=== PATIENT | male | born 1960 | race Caucasian/White ===

== ENCOUNTER → 2018-03-19 08:14 | Outpatient (CLI) | payer BC, SELFPAY ==
[2018-03-19 10:51] LABS: Hemoglobin A1c 5.9 % (4.2-6.3)
[2018-03-19 10:59] LABS: Anion Gap 9 (5-15); BUN 16 mg/dL (7-18); BUN/Creat Ratio 16.9 RATIO (10-20); Calcium,Total 8.4 mg/dL (8.5-10.1); Chloride 106 mmol/L (98-107); Cholesterol 141 mg/dL (200); Creatinine, Serum 0.95 mg/dL (0.70-1.30); EST Glomerular Filtration Rate 88 mL/min (>60); Est Glom Filt Rate - Afr Amer 106 mL/min (>60); Glucose 112 mg/dL (74-106); High Density Lipoprotein 23 mg/dL; PSA,Total - Annual Screen 0.69 ng/mL (0.00-4.00); Potassium 4.3 mmol/L (3.5-5.1); Sodium Level 141 mmol/L (136-145); Triglycerides 227 mg/dL; Very Low Density Lipoprotein 45 mg/dL (5-40)
== END ==
PROVIDERS: Family Provider Family Medicine; PCP Family Medicine; Visit Provider Family Medicine
DX: I10 Essential (primary) hypertension (principal); Z12.5 Encounter for screening for malignant neoplasm of prostate; E78.5 Hyperlipidemia, unspecified; R73.09 Other abnormal glucose
CPT/HCPCS: 36415; 80048; 80061; 83036; 84153; G0103

== ENCOUNTER 2018-07-12 09:30 | Outpatient (RCR) | payer BC, SELFPAY ==
--- NOTE | 2018-06-20 12:51 | HP.PTEVAL_ITS ---
Patient's Visit Information LINDA FREIRE is a 57 year old M referred to Physical Therapy by DEONDRE TRIPP with a diagnosis of LB strain. Date of Evaluation: 06/20/18 Physical Therapist: Lincoln Gil DPT, OC - Visit Plan Frequency: 2x /Week Duration: 4-6 Weeks Plan: 2x/week for 3-6 weeks. 1. Gradual progression of ROM and core NS strength. 2. As improved work to [place] lifting and carrying working on body mechanics. 3. May use ES ice if pain returns. - Subjective Subjective: Back hurts. Lifted something overhead and felt rip in back. That was 6 weeks ago. Lifted some bricks last weekend and was worse after completed. Had some pain prior to all this intermittently. Has H/o HNP L5. Last couple days has had very little pain b/c hasn't done anything. Avoided lifting, grass seeding yard, taking care of 6 acres. Has not lifted or carried in last couple weeks. Feels great if avoids those things...walking and standing makes him worse. Sitting is OK. Sleeping is good. No pain with cough or sneeze. Went to doctor Sunday and [facility]. Gave him steroids step down and is still on them. Basic ADLs are all OK. 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 - Pain R LBP Pain Intensity (Out of 10): 0 Pain Intensity Range: 0, 7 Comment: standing too long. - Objective I normal gait and trasnfers. reflexes aptella and achilles 3/3. Sensation WNL LE to gross light touch]Strength LE 5/5. LB AROM ext painful central and mod limited. R SB + and limited, L SB full. Flexion is OK. repeated ext produces central LBP. W R SB ROM. Repeated PPU: B adn increased ROM. repeated flex in standing: better. - L/S compression test - Goals Goal 1:: Sleep without waking due to pain. Goal Time Frame: 4-6 Weeks Goal 2:: Back to lifting [place] without hesitation or pain. Goal Time Frame: 4-6 Weeks Goal 3:: Pt feel 100% back to normal and no pain Goal Time Frame: 4-6 Weeks - Rehabilitation Potential Physical Therapy Diagnosis: LB strain. Rehabilitation Potential: Fair - Anticipated Interventions Patient/Client Instruction: Educate patient on: Condition, Plan of Care For the Purpose of:: To decrease pain, To improve ability of physical actions for home/community/work/leisure Therapeutic Exercise to Include: Strength training, Body mechanics, Dynamic Lumbar Stabilization For the Purpose of:: To decrease pain, To improve nutrient delivery to tissue, To improve ability of physical actions for home/community/work/leisure, To improve gait and locomotor functions TENS: Yes Cryotherapy (ice pack, ice massage): Yes For the Purpose of:: To decrease pain Thank you for the opportunity to evaluate your patient. For Medicare and Medicare HMO plans, please review the plan of care and approve it. It will need to be FAXED BACK to us at [phone] for Medicare purposes. Please let me know if there are questions or concerns regarding this plan of care. Physician Signature: Date:
--- NOTE | 2018-09-26 09:53 | HP.PT.NRP ---
HP - Discharge Summary (1) - Patient Information LINDA FREIRE was seen in my office for initial evaluation on 06/20/18. The following Plan of Care was established for this patient: Initial Frequency: 2x /Week Initial Duration: 4-6 Weeks - Anticipated Interventions Patient/Client Instruction: Educate patient on: Condition, Plan of Care For the Purpose of:: To decrease pain, To improve ability of physical actions for home/community/work/leisure Therapeutic Exercise to Include: Strength training, Body mechanics, Dynamic Lumbar Stabilization For the Purpose of:: To decrease pain, To improve nutrient delivery to tissue, To improve ability of physical actions for home/community/work/leisure, To improve gait and locomotor functions TENS: Yes Cryotherapy (ice pack, ice massage): Yes For the Purpose of:: To decrease pain This patient was last seen in our office 07/12/18. Pertinent comments regarding their Physical therapy will appear below: Pt seen 7 visits of plan of care adn was doing well according to notes but neglected to continue with plan or reevaluation. at this point, it has been over two months and I will discontinue due to nonattendance. At this point I will be discontinuing this patient from physical therapy. I would be happy to see this patient again in the future if found appropriate by the physician. Thank you! Lincoln Gil, DPT, OCS, CSCS
== END 2018-07-12 19:00 | disposition home or self-care (01) ==
LOC: PT 09:30
PROVIDERS: Family Provider Family Medicine; PCP Family Medicine
DX: S39.012D Strain of muscle, fascia and tendon of lower back, subsequent encounter (principal)
CPT/HCPCS: 97110; 97162; 97530

== ENCOUNTER → 2018-11-11 10:47 | Outpatient (CLI) | payer BC, SELFPAY ==
--- NOTE | 2018-11-11 10:54 | RAD_ITS ---
STUDY: X-RAY - LEFT SHOULDER REASON FOR EXAM: Male, 58 years old. Pain. TECHNIQUE: 2 view(s) of the shoulder. COMPARISON: None. FINDINGS: There is severe degenerative arthrosis of the glenohumeral articulation. There are degenerative changes of the acromioclavicular joint. Normal acromion. Normal humeral head and visualized proximal humerus. The soft tissue structures are unremarkable. Normal visualized pulmonary apex. RAD/Shoulder min 2 Views IMPRESSION: Degenerative changes. Electronically Signed: Yarelis Crow MD at 17:37 EST Tel , Service support ,
--- NOTE | 2018-11-11 10:54 | RAD_ITS ---
STUDY: X-RAY - RIGHT SHOULDER REASON FOR EXAM: Male, 58 years old. Pain. TECHNIQUE: 2 view(s) of the shoulder. COMPARISON: 11/11/2018 left shoulder. FINDINGS: Moderate chronic AC joint arthrosis. There are no significant degenerative features of the glenohumeral articulation. Osseous structures about the shoulder are intact with normal periarticular soft tissues are normal right hemithoracic structures. RAD/Shoulder min 2 Views IMPRESSION: Moderate chronic acromioclavicular joint arthrosis with no significant degenerative features of the glenohumeral articulation. Electronically Signed: Dominguez Gupta MD at 17:31 EST Tel , Service support ,
== END ==
PROVIDERS: Family Provider Family Medicine; PCP Family Medicine; Referring Provider Psychiatry & Neurology Pain Medicine; Visit Provider Psychiatry & Neurology Pain Medicine
DX: M19.011 Primary osteoarthritis, right shoulder (principal); M19.012 Primary osteoarthritis, left shoulder
CPT/HCPCS: 73030

== ENCOUNTER → 2019-10-13 08:55 | Outpatient (CLI) | payer BC, SELFPAY ==
[2019-10-13 10:32] LABS: Hemoglobin A1c 6.1 % (4.2-6.3)
[2019-10-13 10:41] LABS: Anion Gap 3 (5-15); BUN 13 mg/dL (7-18); BUN/Creat Ratio 13.5 RATIO (10-20); Calcium,Total 8.4 mg/dL (8.5-10.1); Chloride 109 mmol/L (98-107); Cholesterol 163 mg/dL (200); Creatinine, Serum 0.96 mg/dL (0.70-1.30); EST Glomerular Filtration Rate 85 mL/min (>60); Est Glom Filt Rate - Afr Amer 103 mL/min (>60); Glucose 124 mg/dL (74-106); High Density Lipoprotein 25 mg/dL; PSA,Total - Annual Screen 0.98 ng/mL (0.00-4.00); Potassium 4.2 mmol/L (3.5-5.1); Sodium Level 139 mmol/L (136-145); Triglycerides 188 mg/dL; Very Low Density Lipoprotein 38 mg/dL (5-40)
== END ==
PROVIDERS: Family Provider Family Medicine; PCP Family Medicine; Referring Provider Family Medicine; Visit Provider Family Medicine
DX: R73.09 Other abnormal glucose (principal); E78.5 Hyperlipidemia, unspecified; Z12.5 Encounter for screening for malignant neoplasm of prostate; I10 Essential (primary) hypertension
CPT/HCPCS: 36415; 80048; 80061; 83036; 84153; G0103

== ENCOUNTER → 2019-10-17 11:48 | Outpatient (CLI) | payer BC, SELFPAY ==
[2019-10-17 11:50] LABS: Bacteria 0 SEEN /hpf (None Seen); Mucous, Urine 0 SEEN /hpf (<or=2+); Squamous Epithelial Cells - UA 0 SEEN /hpf (0-5); White Blood Cells 0 SEEN /hpf (0-5)
[2019-10-17 14:16] LABS: Absolute Lymphocyte Count 3.31 X10^3/uL (0.83-4.51); Absolute Neutrophil Count 5.5 X10^3/uL (2.0-7.7); Basophil# 0.08 X10^3/uL; Basophil% 0.8 % (0-1); Color, Urine Yellow (Yellow); Eosinophil# 0.17 X10^3/uL; Eosinophils% 1.7 % (0-5); Glucose, Dipstick Normal (Normal); Hematocrit 45.4 % (40-54); Hemoglobin 14.1 g/dL (13.0-16.5); Ketone-Dipstick 5 mg/dl (Negative); Leukocyte Esterase-Dipstick Negative /ul (Negative); Lymphocyte # 3.31 X10^3/ul (4.0); Lymphocyte % 33.2 % (19-41); Mean Corp Hgb Conc 31.1 g/dL (32-36); Mean Corpuscular Hgb 27.5 pg (27.0-32.0); Mean Corpuscular Volume 88.5 fL (80-94); Mean Platelet Vol. 9.8 fl (6.2-12.0); Monocyte# 0.81 X10^3/uL; Monocyte% 8.1 % (0-10); NRBC Flagged by Analyzer 0 % (0-5); Neutrophil # 5.51 X10^3/uL (2.7-7.7); Neutrophil % 55.3 % (47-70); Nitrite-Dipstick Negative (Negative); Occult Blood-Urine 25 /ul (Negative); Platelet Count 288 K/mm3 (150-450); Protein-Dipstick Negative (Negative); RBC Distribution Width CV 13.9 % (11.6-14.6); Red Blood Count 5.13 M/mm3 (4.6-6.2); Urine Bilirubin Dipstick Negative (Negative); Urine Clarity Clear (Clear); Urine Urobilinogen Normal (Normal)
[2019-10-17 14:25] LABS: Red Blood Cells-Urine 0-5 SEEN /hpf (0-5)
[2019-10-17 14:40] LABS: AST(SGOT) 21 U/L (15-37); Alanine Aminotransfer ALT/SGPT 37 U/L (16-61); Albumin, Serum 3.8 g/dL (3.2-5.0); Alkaline Phosphatase 76 U/L (45-117); Bilirubin, Direct 0.11 mg/dL (0.00-0.30); Globulin 3.6 g/dL (2.2-4.2); Protein, Total 7.4 g/dL (6.4-8.2); T4 Free Direct 0.89 ng/dL (0.76-1.46); Thyroid Stim Hormone (TSH) 1.68 uIU/mL (0.358-3.74)
== END ==
PROVIDERS: Family Provider Family Medicine; PCP Family Medicine; Referring Provider Family Medicine; Visit Provider Family Medicine
DX: I10 Essential (primary) hypertension (principal); F17.200 Nicotine dependence, unspecified, uncomplicated; E04.1 Nontoxic single thyroid nodule
CPT/HCPCS: 36415; 80076; 81001; 84439; 84443; 85025

== ENCOUNTER → 2019-10-27 09:21 | Outpatient (CLI) | payer BC, SELFPAY ==
--- NOTE | 2019-10-27 09:27 | US_ITS ---
STUDY: THYROID ULTRASOUND REASON FOR EXAM: Male, 59 years old. NODULE FELT BY DOCTOR TECHNIQUE: Ultrasound evaluation of the thyroid was performed with real-time and static woodson-scale imaging. COMPARISON: None. FINDINGS: RIGHT LOBE: The right lobe of the thyroid gland measures 4.5 cm x 2.1 cm x 2.1 cm. There is a homogeneous echotexture. There are no demonstrated solid, cystic or complex lesions. LEFT LOBE: The left lobe of the thyroid gland measures 4.2 cm x 1.8 cm x 1.5 cm. There is a homogeneous echotexture. There are no demonstrated solid, cystic or complex lesions. ISTHMUS: The isthmus measures 5.0 mm. The regional lymph nodes are normal. US/Thyroid IMPRESSION: Normal ultrasound examination of the thyroid. Electronically Signed: Ernesto Arita, at 8:46 EST , Service support ,
== END ==
PROVIDERS: Family Provider Family Medicine; PCP Family Medicine; Referring Provider Family Medicine; Visit Provider Family Medicine
DX: E04.1 Nontoxic single thyroid nodule (principal)
CPT/HCPCS: 76536

== ENCOUNTER → 2020-02-13 08:22 | Outpatient (CLI) | payer BC, SELFPAY ==
[2020-02-13 08:42] LABS: Bacteria 0 SEEN /hpf (None Seen); Mucous, Urine 0 SEEN /hpf (<or=2+); Red Blood Cells-Urine 0 SEEN /hpf (0-5); Squamous Epithelial Cells - UA 0 SEEN /hpf (0-5); White Blood Cells 0 SEEN /hpf (0-5)
[2020-02-13 09:54] LABS: Absolute Lymphocyte Count 2.45 X10^3/uL (0.83-4.51); Absolute Neutrophil Count 5.1 X10^3/uL (2.0-7.7); Basophil# 0.09 X10^3/uL; Color, Urine Yellow (Yellow); Eosinophil# 0.21 X10^3/uL; Eosinophils% 2.4 % (0-5); Glucose, Dipstick Normal (Normal); Hematocrit 46.4 % (40-54); Hemoglobin 14.9 g/dL (13.0-16.5); Ketone-Dipstick Negative (Negative); Leukocyte Esterase-Dipstick Negative /ul (Negative); Lymphocyte # 2.45 X10^3/ul (4.0); Lymphocyte % 28.4 % (19-41); Mean Corp Hgb Conc 32.1 g/dL (32-36); Mean Corpuscular Hgb 28.5 pg (27.0-32.0); Mean Corpuscular Volume 88.7 fL (80-94); Mean Platelet Vol. 10.4 fl (6.2-12.0); Monocyte# 0.77 X10^3/uL; Monocyte% 8.9 % (0-10); NRBC Flagged by Analyzer 0 % (0-5); Neutrophil # 5.07 X10^3/uL (2.7-7.7); Neutrophil % 58.8 % (47-70); Nitrite-Dipstick Negative (Negative); Occult Blood-Urine 25 /ul (Negative); Platelet Count 257 K/mm3 (150-450); Protein-Dipstick Negative (Negative); RBC Distribution Width CV 13.6 % (11.6-14.6); RBC Distribution Width SD 43.8 fl (35.1-43.9); Red Blood Count 5.23 M/mm3 (4.6-6.2); Specific Gravity, Urine 1.015 (1.002-1.030); Urine Bilirubin Dipstick Negative (Negative); Urine Clarity Clear (Clear); Urine Urobilinogen Normal (Normal); White Blood Count 8.6 K/mm3 (4.4-11.0)
[2020-02-13 10:09] LABS: ALB/GLOB Ratio 1.1 RATIO (0.9-2.4); AST(SGOT) 21 U/L (15-37); Alanine Aminotransfer ALT/SGPT 31 U/L (16-61); Albumin, Serum 3.7 g/dL (3.2-5.0); Alkaline Phosphatase 66 U/L (45-117); Anion Gap 6 (5-15); BUN 15 mg/dL (7-18); BUN/Creat Ratio 15.8 RATIO (10-20); Calcium,Total 8.8 mg/dL (8.5-10.1); Chloride 108 mmol/L (98-107); Creatinine, Serum 0.95 mg/dL (0.70-1.30); EST Glomerular Filtration Rate 86 mL/min (>60); Est Glom Filt Rate - Afr Amer 104 mL/min (>60); Globulin 3.5 g/dL (2.2-4.2); Glucose 122 mg/dL (74-106); Potassium 4.6 mmol/L (3.5-5.1); Protein, Total 7.2 g/dL (6.4-8.2); Sodium Level 140 mmol/L (136-145)
[2020-02-13 10:29] LABS: Hemoglobin A1c 6.3 % (4.2-6.3)
== END ==
PROVIDERS: PCP Family Medicine; Referring Provider Family Medicine; Visit Provider Family Medicine
DX: I10 Essential (primary) hypertension (principal); R73.02 Impaired glucose tolerance (oral); F17.200 Nicotine dependence, unspecified, uncomplicated
CPT/HCPCS: 36415; 80053; 81001; 83036; 85025

== ENCOUNTER 2020-04-16 05:34 | Day surgery (SDC) | payer BC, SELFPAY ==
[2020-03-26 09:24] VITALS: BMI 25.8
[2020-04-16] VITALS (8 sets, daily range): BP systolic 118–156; BP diastolic 75–92; PULSE 48–55; RESP 16; TEMP 36.1–36.6; O2SAT 95–100; BMI 28.0
--- NOTE | 2020-04-16 | EGD_PTH ---
PATIENT: LIDNA FREIRE LOC: EN U#:[id number] AGE/SX: 59/M ROOM: RE04/16/[address]: Dr. Carlitos Dos Santos MD : 1960 BED: DIS: 04/16/2020 SPEC #: [id number] RECD: 04/16/20 13:10 STATUS: ENRIQUE MADDEN #: [id number] ED: 04/16/20 00:[address]: Carlitos Dos Santos DEPT: SURGICAL PATHOLOGY RECD BY: Dennys Tavera ENTERED: 04/16/20 13:11 SP TYPE: EGD BIOPSY OT DR: Dr. Brock Dove MD Tissues: A - Duodenum, NOS B - Gastric mucous membrane Esophagus, NOS Procedures: Surgery Specimen Level IV HEADER OPERATION: EGD (MOD) PRE-OP DIAGNOSIS: GERD TISSUE SUBMITTED: A - Duodenum biopsy, B - Antrum biopsy, C - Distal esophagus biopsy MICROSCOPIC DIAGNOSIS A. Duodenum, biopsy: Minimal nonspecific chronic inflammation. B. Gastric antrum, biopsy: Mild chronic gastritis. C. Distal esophagus, biopsy: Strips of benign superficial squamous mucosa with no evidence of inflammation. AM:[place] 04/19/20 MICROSCOPIC DESCRIPTION Slides are reviewed. GROSS DESCRIPTION A - Received in fixative is one container labeled with the patient's name and designated duodenum biopsy. The specimen consists of one irregular fragment of light king soft tissue that measures 0.4 x 0.3 x 0.1 cm. The specimen is totally submitted in one cassette. B - Received in fixative is one container labeled with the patient's name and designated antrum biopsy. The specimen consists of one irregular fragment of light king soft tissue that measures 0.7 x 0.2 x 0.1 cm. The specimen is totally submitted in one cassette. C - Received in fixative is one container labeled with the patient's name and designated distal esophagus biopsy. The specimen consists of multiple irregular fragments of light king soft tissue that in aggregate measure 1 x 0.3 x 0.1 cm. The specimen is totally submitted in one cassette. / SJ:[place] 04/16/20 TC:3 CPT: 14924 x3
--- NOTE | 2020-04-16 05:58 | PCM.HP.BLA ---
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 Required: No Is patient in pain?: No Allergies No Known Allergies Allergy (Unverified 03/26/20 09:24) Medications metformin 500 mg tablet 500 mg PO BID 03/26/20 [History Confirmed 03/26/20] metoprolol tartrate 50 mg tablet 50 mg PO BID 03/26/20 [History Confirmed 03/26/20] omeprazole 20 mg tablet,delayed release 20 mg PO DAILY 03/26/20 [History Confirmed 03/26/20] [facility] Medical History Diabetes (Acute) GERD (gastroesophageal reflux disease) (Acute) HTN (hypertension) (Chronic) Surgical History S/P correction of deviated nasal septum (Acute) S/P left knee arthroscopy (Acute) S/P left knee surgery (Acute) S/p tibial fracture (Acute) Family History Brother Cancer sinus surgery Father Heart disease Social History (Updated 03/26/20 @ 09:[address] Carlitos Dos Santos MD) Smoking Status: Current every day smoker alcohol intake: never HPI HPI HPI: LINDA FREIRE, is a 59 M who presents to the office today for surgical consultation regarding a 10-year history of proton pump inhibitor dependent sour stomach reflux symptoms. The patient is referred by his primary care physician Dr Brock Dove and a written copy of my surgical consult and recommendations will be returned to him. At least for 10 years he has been on omeprazole therapy. 20 mg tablet every other day. If he goes longer than he has severe dyspepsia. He has been a long-term tobacco smoker.. He occasionally will have a sour taste in his throat. He has never had an upper endoscopy. He has had a colonoscopy performed by Dr. Ruiz Gomez on September 17, 2017. A a sending colon polyp and a descending colon polyp was removed. The ascending polyp was a tubular adenoma in the descending polyp was actually just colonic mucosa. It was recommended to him that he have a follow-up colonoscopy 5 years from that date. He denies bright red blood per rectum or melena. No current abdominal pain. HPI HPI HPI: LINDA FREIRE, is a 59 M who presents to the office today for ROS General General: No weight change, appetite, fatigue, colon cancer, breast cancer or weakness HEENT HEENT: No difficulty swallowing, eye injury, eye surgery, swollen glands or hoarseness Endo Endocrine: No thyroid disease, diabetes mellitus, thyroid cancer, Hair loss, heat intolerance or cold intolerance Skin Skin: No rash or changing moles Breast Breast: No left breast lump, right breast lump, nipple discharge, breast pain, abnormal mammogram, abnormal US or breast enlargement Musc Musculoskeletal: Yes arthritis; no back problems, rheumatoid arthritis, gout or joint pain Cardio Cardiovascular: Yes high blood pressure; no murmur, pacemaker, heart disease, atrial fibrillation, heart attack, heart stent, palpitations, shortness of breat with exertion or chest pain Psych Psychiatric: No depression, anxiety or hearing voices Resp Respiratory: No shortness of breath, No sleep apnea, No cough, No COPD, No asthma, No emphysema, No wheezing Gastro Gastrointestinal: No abdominal pain, No nausea or vomiting, No diarrhea, No constipation, No blood in stool, No acid reflux, No hemorrhoids, No ulcers, No gallbladder problem, No black,tarry stools Alexander Hematologic: No blood thinners, No blood disorders, No bleeding, No anemia, No blood clots Neuro Neurologic: No system reviewed and no additional complaints, except as docu, No as per HPI, No abnormal walking, No abnormal hearing, No abnormal movements, No abnormal speech, No behavioral changes, No burning sensations, No confusion, No seizure-like activity, No unsteadiness, No dizziness, No localized weakness, No frequent falls, No headache(s), No lack of coordination, No loss of vision, No memory loss, No numbness, No other visual disturbances, No radiating pain, No restless legs, No sensory deficit, No fainting, No tingling, No tremor(s), No weakness, No other Exam Const General: cooperative, comfortable, no acute distress Nutritional Appearance: average body habitus Orientation: alert, awake HENMT Head: normal to inspection Chest Breast Palpation: No nipple discharge Resp Effort & Inspection: normal respiratory effort Auscultation: clear to auscultation bilaterally Cardio Rate: regular rate Rhythm: regular rhythm Heart Sounds: no murmurs GI Palpation: soft, no hepatosplenomegaly Skin General: no rashes or lesions noted Neuro Cognition: normal cognition Extrem General: no calf tenderness Psych Affect: normal affect Assessment & Plan Problems 1. Gastroesophageal reflux disease, esophagitis presence not specified K21.9 Plan Findings would suggest a 10-year history of proton pump inhibitor therapy. He has never had an upper endoscopy. He has reflux symptoms if he temporarily ceases his medication. I concur with Dr Brock Dove that the patient is indicated for a esophagogastroduodenoscopy with very careful inspection for possible biopsy or polypectomy if indicated. I have described the technique, benefit, risk of alternatives to the patient. He has had an opportunity to ask and have questions answered. We will schedule and proceed at his discretion. He is aware that he is presenting via the Covid-19 pandemic. He is aware that the [facility] is reporting a low local incidence. I appreciate the opportunity of assisting with his surgical care CC: Dr Brock Dos Santos M.D., F.A.C.S. Coding Level of Care Code 93065 Diagnoses Gastroesophageal reflux disease, esophagitis presence not specified K21.9 ??Esophagitis presence: esophagitis presence not specified I have re-examined the patient. There are no clinical changes since date of exam. Procedure Criteria Procedure Type: Elective COVID Risk Discussion: The surgeon/proceduralist and patient have discussed in detail the risk of exposure to and/or potential harm posed by the COVID-19 virus with having a surgery/procedure at this time versus the risk of delaying the surgery/procedure. It is not possible to know either the risk of delaying the surgery or procedure or chance of getting an infection with perfect accuracy, but a joint decision was made between the patient and the surgeon/proceduralist to proceed at this time with the scheduled surgery/procedure as indicated on the consent form.
[2020-04-16] MEDS: Lactated Ringers 1,000 ML 100 ML IV (06:06)
--- NOTE | 2020-04-16 06:49 | OP.EGD_ITS ---
Patient Name: Dominik Valentine Procedure Date: 04/16/2020 6:12 AM Date of : 1960 Age: 59 Procedure: Upper GI endoscopy Indications: Suspected esophageal reflux Providers: Carlitos Dos Santos MD Referring MD: Brock Dove Medicines: Midazolam 3.5 mg IV, Meperidine 90 mg IV Complications: No immediate complications. Procedure: Pre-Anesthesia Assessment: - Prior to the procedure, a History and Physical was performed, and patient medications and allergies were reviewed. The patient's tolerance of previous anesthesia was also reviewed. The risks and benefits of the procedure and the sedation options and risks were discussed with the patient. All questions were answered, and informed consent was obtained. Prior Anticoagulants: The patient has taken no previous anticoagulant or antiplatelet agents. ASA Grade Assessment: II - A patient with mild systemic disease. After reviewing the risks and benefits, the patient was deemed in satisfactory condition to undergo the procedure. After obtaining informed consent, the endoscope was passed under direct vision. Throughout the procedure, the patient's blood pressure, pulse, and oxygen saturations were monitored continuously. The Endoscope was introduced through the mouth, and advanced to the second part of duodenum. The upper GI endoscopy was accomplished without difficulty. The patient tolerated the procedure well. Moderate Sedation: Moderate (conscious) sedation was personally administered by the endoscopist. The following parameters were monitored: oxygen saturation, heart rate, blood pressure, and response to care. Total physician intraservice time was 15 minutes. Scope In: 6:36:07 AM Scope Out: 6:41:55 AM Total Procedure Duration Time 0 hours 5 minutes 48 seconds Findings: The Z-line was variable and was found 40 cm from the incisors. The distal esophagus was normal. Biopsies were taken with a cold forceps for histology. A small hiatal hernia was present. Diffuse mild inflammation was found in the gastric antrum. Biopsies were taken with a cold forceps for histology. Diffuse mild inflammation characterized by erythema was found in the duodenal bulb. Biopsies were taken with a cold forceps for histology. Impression: - Z-line variable, 40 cm from the incisors. - Normal distal esophagus. Biopsied. - Small hiatal hernia. - Chronic gastritis. Biopsied. - Duodenitis. Biopsied. Recommendation: - Await pathology results. - Discharge patient to home. - Resume previous diet. - Continue present medications. - Telephone my office for pathology results in 1 week. Will consider routine use of a H2 [place] because of gastritis/duodenitis - Use Pepcid (famotidine) 20 mg PO BID. Procedure Code(s): --- Professional --- 58566, Esophagogastroduodenoscopy, flexible, transoral; with biopsy, single or multiple 55151, 59, Moderate sedation services provided by the same physician or other qualified health home visit field care manager performing the diagnostic or therapeutic service that the sedation supports, requiring the presence of an independent trained observer to assist in the monitoring of the patient's level of consciousness and physiological status; initial 15 minutes of intraservice time, patient age 5 years or older Diagnosis Code(s): --- Professional --- K22.8, Other specified diseases of esophagus K44.9, Diaphragmatic hernia without obstruction or gangrene K29.50, Unspecified chronic gastritis without bleeding K29.80, Duodenitis without bleeding CPT copyright 2017 [employer]. All rights reserved. The codes documented in this report are preliminary and upon manager portable review may be revised to meet current compliance requirements. Carlitos Dos Santos MD 04/16/2020 6:49:14 AM This report has been signed electronically. Number of Addenda: 0 Note Initiated On: 04/16/2020 6:12 AM
--- NOTE | 2020-04-16 06:49 | OP.CCLET_ITS ---
04/16/2020 Brock Dove [address] [place] [address] Re : Upper GI endoscopy procedure for Dominik Valentine Dear Dr. Dove This procedure was performed on Thursday, April 16, 2020. My impressions and recommendations are as follows: Impressions : - Z-line variable, 40 cm from the incisors. - Normal distal esophagus. Biopsied. - Small hiatal hernia. - Chronic gastritis. Biopsied. - Duodenitis. Biopsied. Recommendations : - Await pathology results. - Discharge patient to home. - Resume previous diet. - Continue present medications. - Telephone my office for pathology results in 1 week. Will consider routine use of a H2 [place] because of gastritis/duodenitis - Use Pepcid (famotidine) 20 mg PO BID. My findings are described in the full procedure note, which is enclosed. If I can be of further assistance, please feel free to contact me at Doctor phone number(s): Work: . Sincerely, Carlitos Dos Santos MD 04/16/2020 6:49:14 AM This report has been signed electronically.
== END 2020-04-16 07:34 | disposition home or self-care (01) ==
LOC: EN 05:35 → AC 05:35
PROVIDERS: PCP Family Medicine; Referring Provider Family Medicine; Visit Provider Surgery
PROC: (CPT 43239; principal; 2020-04-16 06:25)
DX: K29.50 Unspecified chronic gastritis without bleeding (principal); K44.9 Diaphragmatic hernia without obstruction or gangrene; K29.80 Duodenitis without bleeding; K21.9 Gastro-esophageal reflux disease without esophagitis; Z11.59 Encounter for screening for other viral diseases; E11.9 Type 2 diabetes mellitus without complications; I10 Essential (primary) hypertension; Z79.84 Long term (current) use of oral hypoglycemic drugs; Z79.899 Other long term (current) drug therapy; F17.200 Nicotine dependence, unspecified, uncomplicated
CPT/HCPCS: 43239; 87635; 88305; 99152; 99153; G2023; J7120; U0003

== ENCOUNTER → 2021-07-26 09:11 | Outpatient (CLI) | payer BC, SELFPAY ==
[2021-07-26 09:16] LABS: Bacteria 0 SEEN /hpf (None Seen); Mucous, Urine 0 SEEN /hpf (<or=2+); Squamous Epithelial Cells - UA 0 SEEN /hpf (0-5); White Blood Cells 0 SEEN /hpf (0-5)
[2021-07-26 10:00] LABS: Color, Urine Yellow (Yellow); Glucose, Dipstick Normal (Normal); Ketone-Dipstick 5 mg/dl (Negative); Leukocyte Esterase-Dipstick Negative /ul (Negative); Nitrite-Dipstick Negative (Negative); Occult Blood-Urine 10 /ul (Negative); Protein-Dipstick Negative (Negative); Urine Bilirubin Dipstick Negative (Negative); Urine Clarity Clear (Clear); Urine Urobilinogen Normal (Normal)
[2021-07-26 10:02] LABS: Absolute Lymphocyte Count 3.52 X10^3/uL (0.83-4.51); Absolute Neutrophil Count 6.3 X10^3/uL (2.0-7.7); Basophil# 0.11 X10^3/uL; Eosinophil# 0.24 X10^3/uL; Eosinophils% 2.1 % (0-5); Hematocrit 48.8 % (40-54); Hemoglobin 15.9 g/dL (13.0-16.5); Lymphocyte # 3.52 X10^3/ul (0.83-4.51); Lymphocyte % 31.5 % (19-41); Mean Corp Hgb Conc 32.6 g/dL (32-36); Mean Corpuscular Hgb 28.8 pg (27.0-32.0); Mean Corpuscular Volume 88.4 fL (80-94); Mean Platelet Vol. 9.9 fl (6.2-12.0); Monocyte# 0.92 X10^3/uL; Monocyte% 8.2 % (0-10); NRBC Flagged by Analyzer 0 % (0-5); Neutrophil # 6.33 X10^3/uL (2.7-7.7); Neutrophil % 56.6 % (47-70); Platelet Count 276 K/mm3 (150-450); RBC Distribution Width CV 13.7 % (11.6-14.6); RBC Distribution Width SD 44.4 fl (35.1-43.9); Red Blood Count 5.52 M/mm3 (4.6-6.2); White Blood Count 11.2 K/mm3 (4.4-11.0)
[2021-07-26 10:10] LABS: Red Blood Cells-Urine 0-5 SEEN /hpf (0-5)
[2021-07-26 11:05] LABS: AST(SGOT) 28 U/L (15-37); Alanine Aminotransfer ALT/SGPT 49 U/L (16-61); Albumin, Serum 3.9 g/dL (3.2-5.0); Alkaline Phosphatase 78 U/L (45-117); Anion Gap 10 (5-15); BUN 13 mg/dL (7-18); BUN/Creat Ratio 13.1 RATIO (10-20); Chloride 101 mmol/L (98-107); Cholesterol 140 mg/dL (200); Creatinine, Serum 0.99 mg/dL (0.70-1.30); EST Glomerular Filtration Rate 82 mL/min (>60); Est Glom Filt Rate - Afr Amer 99 mL/min (>60); Globulin 3.9 g/dL (2.2-4.2); Glucose 115 mg/dL (74-106); High Density Lipoprotein 31 mg/dL; PSA,Total - Annual Screen 0.91 ng/mL (0.00-4.00); Potassium 4.3 mmol/L (3.5-5.1); Protein, Total 7.8 g/dL (6.4-8.2); Sodium Level 137 mmol/L (136-145); Triglycerides 95 mg/dL; Very Low Density Lipoprotein 19 mg/dL (5-40)
[2021-07-26 13:58] LABS: Hemoglobin A1c 5.6 % (3.8-5.6)
== END ==
PROVIDERS: PCP Family Medicine; Referring Provider Family Medicine; Visit Provider Family Medicine
DX: I10 Essential (primary) hypertension (principal); R73.02 Impaired glucose tolerance (oral); Z12.5 Encounter for screening for malignant neoplasm of prostate
CPT/HCPCS: 36415; 80053; 80061; 81001; 83036; 84153; 85025; G0103

== ENCOUNTER → 2022-02-08 | Outpatient (CLI) | payer BC, SELFPAY | END | disposition home or self-care (01) | LOC: LABSPEC 15:13 | PROVIDERS: PCP Family Medicine; Visit Provider Otolaryngology Otolaryngology/Facial Plastic Surgery | DX: J02.9 Acute pharyngitis, unspecified (principal) | CPT/HCPCS: 87070 ==

== ENCOUNTER → 2022-02-16 | Outpatient (CLI) | payer BC, SELFPAY ==
[2022-02-16 12:02] LABS: Bacteria 0 SEEN /hpf (None Seen); Mucous, Urine 0 SEEN /hpf (<or=2+); Red Blood Cells-Urine 0 SEEN /hpf (0-5); Squamous Epithelial Cells - UA 0 SEEN /hpf (0-5); White Blood Cells 0 SEEN /hpf (0-5)
[2022-02-16 15:17] LABS: Absolute Lymphocyte Count 3.46 X10^3/uL (0.83-4.51); Absolute Neutrophil Count 5.2 X10^3/uL (2.0-7.7); Basophil# 0.06 X10^3/uL; Basophil% 0.6 % (0-1); Eosinophil# 0.18 X10^3/uL; Eosinophils% 1.8 % (0-5); Hematocrit 45.6 % (40-54); Hemoglobin 14.9 g/dL (13.0-16.5); Lymphocyte # 3.46 X10^3/ul (0.83-4.51); Lymphocyte % 35.1 % (19-41); Mean Corp Hgb Conc 32.7 g/dL (32-36); Mean Corpuscular Hgb 28.9 pg (27.0-32.0); Mean Corpuscular Volume 88.4 fL (80-94); Mean Platelet Vol. 10.1 fl (6.2-12.0); Monocyte# 0.91 X10^3/uL; Monocyte% 9.2 % (0-10); NRBC Flagged by Analyzer 0 % (0-5); Neutrophil # 5.17 X10^3/uL (2.7-7.7); Neutrophil % 52.6 % (47-70); Platelet Count 268 K/mm3 (150-450); RBC Distribution Width CV 13.4 % (11.6-14.6); RBC Distribution Width SD 43.6 fl (35.1-43.9); Red Blood Count 5.16 M/mm3 (4.6-6.2); White Blood Count 9.9 K/mm3 (4.4-11.0)
[2022-02-16 15:19] LABS: Color, Urine Yellow (Yellow); Glucose, Dipstick Normal (Normal); Ketone-Dipstick Negative (Negative); Leukocyte Esterase-Dipstick Negative /ul (Negative); Nitrite-Dipstick Negative (Negative); Occult Blood-Urine 25 /ul (Negative); Protein-Dipstick Negative (Negative); Urine Bilirubin Dipstick Negative (Negative); Urine Clarity Clear (Clear); Urine Urobilinogen Normal (Normal)
[2022-02-16 15:46] LABS: ALB/GLOB Ratio 1.1 RATIO (0.9-2.4); AST(SGOT) 27 U/L (15-37); Alanine Aminotransfer ALT/SGPT 49 U/L (16-61); Albumin, Serum 3.9 g/dL (3.2-5.0); Alkaline Phosphatase 69 U/L (45-117); Anion Gap 5 (5-15); BUN 10 mg/dL (7-18); BUN/Creat Ratio 12.3 RATIO (10-20); Calcium,Total 9.2 mg/dL (8.5-10.1); Chloride 105 mmol/L (98-107); Cholesterol 129 mg/dL (200); Creatinine, Serum 0.81 mg/dL (0.70-1.30); EST Glomerular Filtration Rate 103 mL/min (>60); Est Glom Filt Rate - Afr Amer 125 mL/min (>60); Globulin 3.7 g/dL (2.2-4.2); Glucose 100 mg/dL (74-106); Hemoglobin A1c 5.7 % (3.8-5.6); High Density Lipoprotein 26 mg/dL; Potassium 4.6 mmol/L (3.5-5.1); Protein, Total 7.6 g/dL (6.4-8.2); Sodium Level 137 mmol/L (136-145); Triglycerides 133 mg/dL; Very Low Density Lipoprotein 27 mg/dL (5-40)
== END | disposition home or self-care (01) ==
LOC: MFPLAB 11:57
PROVIDERS: PCP Family Medicine; Visit Provider Family Medicine
DX: I10 Essential (primary) hypertension (principal); F17.200 Nicotine dependence, unspecified, uncomplicated; R73.02 Impaired glucose tolerance (oral)
CPT/HCPCS: 80053; 80061; 81001; 83036; 85025

== ENCOUNTER → 2023-02-13 | Outpatient (CLI) | payer BC, SELFPAY ==
[2023-02-13 10:46] LABS: Bacteria 0 SEEN /hpf (None Seen); Mucous, Urine 0 SEEN /hpf (<or=2+); Red Blood Cells-Urine 0 SEEN /hpf (0-5); Squamous Epithelial Cells - UA 0 SEEN /hpf (0-5); White Blood Cells 0 SEEN /hpf (0-5)
[2023-02-13 12:33] LABS: Color, Urine Yellow (Yellow); Glucose, Dipstick Normal (Normal); Ketone-Dipstick Negative (Negative); Leukocyte Esterase-Dipstick Negative /ul (Negative); Nitrite-Dipstick Negative (Negative); Occult Blood-Urine 25 /ul (Negative); Protein-Dipstick Negative (Negative); Specific Gravity, Urine 1.005 (1.002-1.030); Urine Bilirubin Dipstick Negative (Negative); Urine Clarity Clear (Clear); Urine Urobilinogen Normal (Normal)
[2023-02-13 12:36] LABS: Absolute Lymphocyte Count 2.94 X10^3/uL (0.83-4.51); Absolute Neutrophil Count 5.3 X10^3/uL (2.0-7.7); Basophil# 0.11 X10^3/uL; Basophil% 1.2 % (0-1); Eosinophil# 0.19 X10^3/uL; Hematocrit 46.5 % (40-54); Hemoglobin 14.8 g/dL (13.0-16.5); Lymphocyte # 2.94 X10^3/ul (0.83-4.51); Lymphocyte % 31.2 % (19-41); Mean Corp Hgb Conc 31.8 g/dL (32-36); Mean Corpuscular Hgb 28.4 pg (27.0-32.0); Mean Corpuscular Volume 89.1 fL (80-94); Mean Platelet Vol. 9.6 fl (6.2-12.0); Monocyte# 0.86 X10^3/uL; Monocyte% 9.1 % (0-10); NRBC Flagged by Analyzer 0 % (0-5); Neutrophil # 5.28 X10^3/uL (2.7-7.7); Neutrophil % 56.1 % (47-70); Platelet Count 266 K/mm3 (150-450); RBC Distribution Width CV 13.8 % (11.6-14.6); Red Blood Count 5.22 M/mm3 (4.6-6.2); White Blood Count 9.4 K/mm3 (4.4-11.0)
[2023-02-13 13:02] LABS: Hemoglobin A1c 5.5 % (3.8-5.6)
[2023-02-13 13:23] LABS: ALB/GLOB Ratio 1.2 RATIO (0.9-2.4); AST(SGOT) 25 U/L (15-37); Alanine Aminotransfer ALT/SGPT 34 U/L (16-61); Albumin, Serum 3.9 g/dL (3.2-5.0); Alkaline Phosphatase 75 U/L (45-117); Anion Gap 4 (5-15); BUN 10 mg/dL (7-18); BUN/Creat Ratio 11.8 RATIO (10-20); Calcium,Total 9.4 mg/dL (8.5-10.1); Chloride 107 mmol/L (98-107); Cholesterol 138 mg/dL (200); Creatinine, Serum 0.85 mg/dL (0.70-1.30); EST Glomerular Filtration Rate 97 mL/min (>60); Est Glom Filt Rate - Afr Amer 118 mL/min (>60); Globulin 3.3 g/dL (2.2-4.2); Glucose 102 mg/dL (74-106); High Density Lipoprotein 32 mg/dL; Potassium 4.6 mmol/L (3.5-5.1); Protein, Total 7.2 g/dL (6.4-8.2); Sodium Level 139 mmol/L (136-145); Triglycerides 76 mg/dL; Very Low Density Lipoprotein 15 mg/dL (5-40)
== END | disposition home or self-care (01) ==
PROVIDERS: PCP Family Medicine; Referring Provider Family Medicine; Visit Provider Family Medicine
DX: I10 Essential (primary) hypertension (principal); R73.02 Impaired glucose tolerance (oral)
CPT/HCPCS: 36415; 80053; 80061; 81001; 83036; 84443; 85025

== ENCOUNTER → 2023-02-23 | Outpatient (CLI) | payer BC, SELFPAY ==
--- NOTE | 2023-02-23 13:47 | CT_ITS ---
STUDY: LOW DOSE CT LUNG CANCER SCREENING REASON FOR EXAM: Male, 62 years old. tobacco abuse. Patient smokes 10 cigarettes per day for 40 years. RADIATION DOSAGE (If Supplied By Facility): CTDIvol = ( 3.02 ) mGy, DLP = ( 121.92 ) mGycm TECHNIQUE: No contrast was administered. Low dose technique was utilized (average mAS-38 and kVp 120). 1.25 mm axial source images with a slice interval of 1.25-mm were reconstructed in lung windows. 2.5 mm axial source images with a slice interval of 2.5-mm were reconstructed in lung windows. 5.0 mm axial source images with a slice interval of 5.0-mm were reconstructed in soft tissue windows. COMPARISON: None. NODULES: No suspicious nodules are seen. Emphysema: No significant emphysematous changes are present. Endobronchial lesion: Unremarkable Aorta: Atherosclerotic plaque formation of the aortic arch. CORONARY ARTERIES: Coronary artery calcification is seen. Heart: Unremarkable Pulmonary artery: Unremarkable Mediastinal nodes: Small benign-appearing mediastinal lymph nodes. Other chest and abdominal findings: CT/Low Dose CT Lung Screening IMPRESSION: Lung-RADS category 2 - Continue annual screening with LDCT in 12 months. IMPORTANT NOTES FOR USE: ACR Lung-RADS Version 1.1 Assessment Categories Release Date: 2018 Category: Coded 0-4 bases on nodule(s) with highest degree of suspicion. Negative screen is defined as categories 1 and 2; a positive screen is defined as categories 3 and 4. Category 3 and 4A nodules that are unchanged on interval CT should be coded as category 2, and individuals returned to screening in 12 months. Category 4X: Category 3 or 4 nodules with additional imaging findings that increase the suspicion of lung cancer, such as spiculation, GGN that doubles in size in 1 year, enlarged lymph notes, etc. Category Modifiers: S (significant finding unrelated to lung cancer) Electronically Signed: Ernesto Arita MD at 14:46 EDT ,
== END | disposition home or self-care (01) ==
LOC: CT 13:43
PROVIDERS: PCP Family Medicine; Referring Provider Family Medicine; Visit Provider Family Medicine
DX: F17.210 Nicotine dependence, cigarettes, uncomplicated (principal)
CPT/HCPCS: 71271

== ENCOUNTER → 2023-03-20 | Outpatient (CLI) | payer BC, SELFPAY ==
--- NOTE | 2023-03-20 07:50 | CT_ITS ---
STUDY: CT SOFT TISSUE NECK WITH CONTRAST REASON FOR EXAM: Male, 62 years old. TOBACCO USE DISORDER/HOARSE VOICE X 1 YEAR RADIATION DOSAGE (If Supplied By Facility): CTDIvol = ( 18.01 ) mGy, DLP = ( 621.08 ) mGycm TECHNIQUE: The patient was scanned in a multi-detector CT scanner. High resolution transaxial imaging was performed following intravenous administration of IV 75mL Isovue-370. Sagittal and coronal images were reconstructed. Individualized dose optimization techniques were used for this CT. COMPARISON: None. FINDINGS: Atherosclerotic calcification of the aortic arch. Normal bilateral parotid glands. Normal bilateral emerging technologies director spaces. Normal bilateral parapharyngeal spaces. Normal bilateral carotid spaces. Normal bilateral sublingual and submandibular glands and spaces. Normal visualized nasopharynx. Normal retropharyngeal space. Normal perivertebral space. Normal visualized bilateral faucial tonsils. The visualized tongue, tongue base and oropharynx are normal. The visualized cervical lymph nodes (levels I-) are within normal size limits, and maintain normal morphology. There is no demonstrated solid or cystic mass lesion. There is no abnormal contrast enhancement. Normal epiglottis, bilateral vallecula and hypopharynx. The pre-epiglottic and paraglottic adipose spaces are normal. Normal visualized bilateral piriform sinuses, aryepiglottic folds, vocal cords, and arytenoid-cricoid articulations. Normal subglottic trachea. Normal bilateral lobes of the thyroid gland. Normal visualized pulmonary apices. Mucosal thickening along the posterior aspect of the sphenoid sinus. Mucosal thickening at the bases of both maxillary sinuses as well as the ethmoid sinuses. There is multilevel degenerative changes of the cervical spine. CT/Soft Tissue Neck WITH Contrast IMPRESSION: Sinusitis. Electronically Signed: Ernesto Arita MD at 12:40 EDT ,
[2023-03-20 08:19] LABS: CREATININE FINGERSTICK < 0.9 mg/dL (0.70-1.30); EGFR FINGERSTICK > 60.0000 mL/min (>60)
== END | disposition home or self-care (01) ==
LOC: CT 07:45
PROVIDERS: PCP Family Medicine; Referring Provider Family Medicine; Visit Provider Family Medicine
DX: F17.200 Nicotine dependence, unspecified, uncomplicated (principal)
CPT/HCPCS: 70491; Q9967

== ENCOUNTER 2023-04-17 05:44 | Day surgery (SDC) | payer BC, SELFPAY ==
[2023-04-17] VITALS (9 sets, daily range): BP systolic 97–122; BP diastolic 61–81; PULSE 45–50; RESP 16; TEMP 36.1–36.4; O2SAT 97–100; BMI 24.3
--- NOTE | 2023-04-17 06:09 | PCM.HP.STD ---
HPI - General General Date of Admission: 06/22/20 Date of Service: 04/17/23 Chief Complaint: Personal history colon polyps HPI Narrative LINDA FREIRE, is a 62 M who presents via open access today for surveillance colonoscopy. Previous colonoscopy was September [address] Medhat Gomez performed a colonoscopy and removed 2 polyps. No specific complaints today. Otherwise feeling well. No abdominal pain. No bright red blood per rectum or melena. He is not on any anticoagulants [facility] [place] Medical History (Updated 04/17/23 @ 06:[address] Carlitos Dos Santos MD) Arthritis Cough Fever Gastric reflux Gastroesophageal reflux disease Head congestion History of colonic polyps Hoarseness HTN (hypertension) Smoker URI (upper respiratory infection) Wears glasses Home Medications metoprolol tartrate 50 mg tablet 50 mg PO BID 03/26/20 [History Last Taken 04/17/23] acetaminophen 500 mg capsule 1,000 mg PO BID PRN pain 03/07/23 [History Last Taken Unknown] multivitamin 1 tab PO DAILY 03/07/23 [History Last Taken Unknown] lactobacillus combination no.4 3 billion cell capsule (Probiotic) 6,000 mmu cells PO DAILY 04/13/23 [History Last Taken Unknown] omeprazole 20 mg capsule,delayed release 20 mg PO DAILY 04/13/23 [History Last Taken 04/17/23] psyllium husk 0.4 gram capsule (Metamucil) 0.4 g PO DAILY 04/13/23 [History Last Taken Unknown] Allergy/AdvReac Type Severity Reaction Status Date / Time amoxicillin [From Augmentin] Allergy Other Verified 04/17/23 05:48 clavulanic acid Allergy Other Verified 04/17/23 05:48 [From Augmentin] Family History Brother Cancer sinus surgery Father Heart disease Surgical History History of colonoscopy History of left shoulder replacement S/P correction of deviated nasal septum S/P left knee arthroscopy S/P left knee surgery S/p tibial fracture Social History (Updated 03/07/23 @ 09:34 by Joya Wilson) household members: spouse current occupational status: retired Smoking Status: Current every day smoker tobacco type: cigarettes alcohol intake: never ROS Constitutional Constitutional: Reports systems reviewed and no addt'l complaints, except as documented Cardiovascular Cardiovascular: Denies chest pain Respiratory/Chest Respiratory/Chest: Denies shortness of breath at rest Gastrointestinal Gastrointestinal: Denies abdominal pain, change in bowel habits, hematochezia or melena Physical Exam Const alert, oriented x3 and no apparent distress General Appearance: cooperative and comfortable Eyes General Eye: normal appearance of both eyes Neck General: normal visual inspection Chest inspection of chest normal Resp Effort and Inspection: able to speak in complete sentences and symmetric chest movement Auscultation: clear to auscultation bilaterally Cardio regular rate and regular rhythm GI soft to palpation, non-tender and non-distended Extremity no calf tenderness Neuro oriented x3 Psych thought process normal Assessment & Plan Assessment/Plan (1) History of colonic polyps: PLAN: The patient presents via open access today. I recommend to him a colonoscopy with possible biopsy or polypectomy as indicated. He is aware of the technique, benefit, risk, alternatives. He has had an opportunity to ask and have questions answered. We will proceed as noted. Carlitos Dos Santos M.D., F.A.C.S.
[2023-04-17] MEDS: Lactated Ringers 1,000 ML 15 ML IV (06:14)
--- NOTE | 2023-04-17 06:30 | COLBX_PTH ---
PATIENT: LINDA FREIRE LOC: EN U#:[id number] AGE/SX: 62/M ROOM: RE04/17/[address]: Dr. Carlitos Dos Santos MD : 1960 BED: DIS: 04/17/2023 SPEC #: [id number] RECD: 04/17/23 14:28 STATUS: ENRIQUE MADDEN #: [id number] ED: 04/17/23 06:[address]: Carlitos Dos Santos DEPT: SURGICAL PATHOLOGY RECD BY: Katie Marsh ENTERED: 04/18/23 10:25 SP TYPE: COLON BX OTHR DR: Dr. Brock Dove MD Tissues: Sigmoid colon biopsy Procedures: Surgery Specimen Level IV HEADER OPERATION: Colonoscopy - open access PRE-OP DIAGNOSIS: History of colonic polyps TISSUE SUBMITTED: Diverticulum of sigmoid MICROSCOPIC DIAGNOSIS Diverticulum of sigmoid, biopsy: No pathologic change. AM:am 04/19/23 MICROSCOPIC DESCRIPTION Slides are reviewed. GROSS DESCRIPTION Received is one container labeled with the patient name and designated diverticulum of sigmoid. The specimen consists of one irregular fragments of light king soft tissue that in aggregate measure 0.4 x 0.4 x 0.1 cm. The specimen is totally submitted in one cassette. / SJ:cc 04/18/23 TC:5 CPT: 55220
[2023-04-17] MEDS: Midazolam 2 MG/2 ML Syringe 5 MG IV (06:38)
--- NOTE | 2023-04-17 07:08 | OP.CCLET_ITS ---
04/18/2023 Brock Dove [address] [place] [address] Re : Colonoscopy procedure for Dominik Valentine Dear Dr. Dove This procedure was performed on Monday, April 17, 2023. My impressions and recommendations are as follows: Impressions : - Non-thrombosed external hemorrhoids, non-thrombosed internal hemorrhoids, internal hemorrhoids that prolapse with straining, but spontaneously regress to the resting position (Grade II) and enlarged prostate found on digital rectal exam. - Diverticulosis in the entire examined colon. - Biopsies were taken with a cold forceps for histology in the proximal sigmoid colon. Initially this looked like a polyp but but on further insufflation it was simply a diverticulum that was slightly inverted. Biopsy had already been obtained. Recommendations : - Discharge patient to home. - Resume previous diet. - Continue present medications. - Repeat colonoscopy in 5 years for surveillance. - Telephone my office for pathology results in 1 week. My findings are described in the full procedure note, which is enclosed. If I can be of further assistance, please feel free to contact me at Doctor phone number(s): Work: . Sincerely, Carlitos Dos Santos MD 04/17/2023 7:07:00 AM This report has been signed electronically.
--- NOTE | 2023-04-17 07:08 | OP.COLON_ITS ---
Patient Name: Dominik Valentine Procedure Date: 04/17/2023 6:21 AM Date of : 1960 Age: 62 Procedure: Colonoscopy Indications: High risk colon cancer surveillance: Personal history of colonic polyps Providers: Carlitos Dos Santos MD Referring MD: Carlitos Dos Santos MD Medicines: Midazolam 3 mg IV, Meperidine 100 mg IV Patient Profile: Last Colonoscopy: September 2017. Complications: No immediate complications. Procedure: Pre-Anesthesia Assessment: - Prior to the procedure, a History and Physical was performed, and patient medications and allergies were reviewed. The patient's tolerance of previous anesthesia was also reviewed. The risks and benefits of the procedure and the sedation options and risks were discussed with the patient. All questions were answered, and informed consent was obtained. Prior Anticoagulants: The patient has taken no previous anticoagulant or antiplatelet agents. ASA Grade Assessment: II - A patient with mild systemic disease. After reviewing the risks and benefits, the patient was deemed in satisfactory condition to undergo the procedure. After I obtained informed consent, the scope was passed under direct vision. Throughout the procedure, the patient's blood pressure, pulse, and oxygen saturations were monitored continuously. The colonoscope was introduced through the anus and advanced to the cecum, identified by appendiceal orifice and ileocecal valve. The colonoscopy was performed without difficulty. The patient tolerated the procedure well. The quality of the bowel preparation was good. The ileocecal valve and the appendiceal orifice were photographed. Moderate Sedation: Moderate (conscious) sedation was personally administered by the endoscopist. The following parameters were monitored: oxygen saturation, heart rate, blood pressure, and response to care. Total physician intraservice time was 15 minutes. Scope In: 6:47:14 AM Scope Withdrawal Time 0 hours 9 minutes 15 seconds Scope Out: 7:01:39 AM Total Procedure Duration Time 0 hours 14 minutes 25 seconds Findings: The digital rectal exam findings include non-thrombosed external hemorrhoids, non-thrombosed internal hemorrhoids, internal hemorrhoids that prolapse with straining, but spontaneously regress to the resting position (Grade II) and enlarged prostate. Multiple diverticula were found in the entire colon. Biopsies were taken with a cold forceps in the proximal sigmoid colon for histology. Impression: - Non-thrombosed external hemorrhoids, non-thrombosed internal hemorrhoids, internal hemorrhoids that prolapse with straining, but spontaneously regress to the resting position (Grade II) and enlarged prostate found on digital rectal exam. - Diverticulosis in the entire examined colon. - Biopsies were taken with a cold forceps for histology in the proximal sigmoid colon. Initially this looked like a polyp but but on further insufflation it was simply a diverticulum that was slightly inverted. Biopsy had already been obtained. Recommendation: - Discharge patient to home. - Resume previous diet. - Continue present medications. - Repeat colonoscopy in 5 years for surveillance. - Telephone my office for pathology results in 1 week. Procedure Code(s): --- Professional --- 10118, Colonoscopy, flexible; with biopsy, single or multiple 61410, 59, Moderate sedation services provided by the same physician or other qualified health attending ambulatory care performing the diagnostic or therapeutic service that the sedation supports, requiring the presence of an independent trained observer to assist in the monitoring of the patient's level of consciousness and physiological status; initial 15 minutes of intraservice time, patient age 5 years or older Diagnosis Code(s): --- Professional --- Z86.010, Personal history of colonic polyps K64.1, Second degree hemorrhoids K64.4, Residual hemorrhoidal skin tags N40.0, Benign prostatic hyperplasia without lower urinary tract symptoms K57.30, Diverticulosis of large intestine without perforation or abscess without bleeding CPT copyright 2017 [employer]. All rights reserved. The codes documented in this report are preliminary and upon sprue cutting press operator review may be revised to meet current compliance requirements. Carlitos Dos Santos MD 04/17/2023 7:07:00 AM This report has been signed electronically. Number of Addenda: 0 Note Initiated On: 04/17/2023 6:21 AM
== END 2023-04-17 08:00 | disposition home or self-care (01) ==
LOC: EN 05:45 → AC 05:45
PROVIDERS: PCP Family Medicine; Referring Provider Family Medicine; Visit Provider Surgery
PROC: 0DJD8ZZ Inspection of Lower Intestinal Tract, Via Natural or Artificial Opening Endoscopic (ICD-10-PCS; CPT 45378; principal; 2023-04-17 06:25)
DX: Z12.11 Encounter for screening for malignant neoplasm of colon (principal); N40.0 Benign prostatic hyperplasia without lower urinary tract symptoms; Z86.010 Personal history of colon polyps; K57.30 Diverticulosis of large intestine without perforation or abscess without bleeding; K64.4 Residual hemorrhoidal skin tags; I10 Essential (primary) hypertension; K64.1 Second degree hemorrhoids; K21.9 Gastro-esophageal reflux disease without esophagitis; F17.210 Nicotine dependence, cigarettes, uncomplicated
CPT/HCPCS: 45380; 88305; 99152; 99153; J7120

== ENCOUNTER → 2023-07-05 | Outpatient (CLI) | payer BC, SELFPAY ==
[2023-07-05 17:46] LABS: Absolute Lymphocyte Count 2.76 X10^3/uL (0.83-4.51); Absolute Neutrophil Count 7.8 X10^3/uL (2.0-7.7); Basophil# 0.09 X10^3/uL; Basophil% 0.8 % (0-1); Eosinophil# 0.15 X10^3/uL; Eosinophils% 1.3 % (0-5); Hematocrit 46.2 % (40-54); Lymphocyte # 2.76 X10^3/ul (0.83-4.51); Lymphocyte % 23.7 % (19-41); Mean Corp Hgb Conc 32.5 g/dL (32-36); Mean Corpuscular Volume 89.2 fL (80-94); Mean Platelet Vol. 9.7 fl (6.2-12.0); Monocyte# 0.84 X10^3/uL; Monocyte% 7.2 % (0-10); NRBC Flagged by Analyzer 0 % (0-5); Neutrophil # 7.78 X10^3/uL (2.7-7.7); Neutrophil % 66.7 % (47-70); Platelet Count 264 K/mm3 (150-450); RBC Distribution Width CV 13.6 % (11.6-14.6); RBC Distribution Width SD 44.3 fl (35.1-43.9); Red Blood Count 5.18 M/mm3 (4.6-6.2); White Blood Count 11.7 K/mm3 (4.4-11.0)
[2023-07-05 18:19] LABS: Hemoglobin A1c 5.5 % (3.8-5.6)
[2023-07-05 18:22] LABS: AST(SGOT) 24 U/L (15-37); Alanine Aminotransfer ALT/SGPT 38 U/L (16-61); Albumin, Serum 3.9 g/dL (3.2-5.0); Alkaline Phosphatase 68 U/L (45-117); Anion Gap 4 (5-15); BUN 9 mg/dL (7-18); BUN/Creat Ratio 11.5 RATIO (10-20); Calcium,Total 9.7 mg/dL (8.5-10.1); Chloride 106 mmol/L (98-107); Cholesterol 137 mg/dL (200); Creatinine, Serum 0.78 mg/dL (0.70-1.30); EST Glomerular Filtration Rate 107 mL/min (>60); Est Glom Filt Rate - Afr Amer 129 mL/min (>60); Globulin 3.8 g/dL (2.2-4.2); Glucose 97 mg/dL (74-106); High Density Lipoprotein 34 mg/dL; Potassium 4.1 mmol/L (3.5-5.1); Protein, Total 7.7 g/dL (6.4-8.2); Sodium Level 138 mmol/L (136-145); Triglycerides 112 mg/dL; Very Low Density Lipoprotein 22 mg/dL (5-40)
== END | disposition home or self-care (01) ==
LOC: MFPLAB 16:45
PROVIDERS: PCP Family Medicine; Visit Provider Family Medicine
DX: I10 Essential (primary) hypertension (principal); R73.02 Impaired glucose tolerance (oral)
CPT/HCPCS: 36415; 80053; 80061; 83036; 85025

== ENCOUNTER → 2023-12-28 | Outpatient (CLI) | payer BC, SELFPAY ==
--- NOTE | 2023-12-28 09:38 | RAD_ITS ---
STUDY: X-RAY - LEFT FOOT CLINICAL: Male, 63 years old. pain TECHNIQUE: 3 view(s) of the foot. COMPARISON: None. FINDINGS: There is an enthesophyte involving the posterior superior calcaneus at the site of insertion of the Achilles tendon. Accessory ossicle adjacent to the tarsal navicular. Degenerative arthrosis of the tibiotalar articulation is seen on the lateral view, poorly visualized. Normal metatarsi. Normal metatarsophalangeal joint of the great toe. Normal tibial and fibular sesamoid bones. Normal interphalangeal joint of the great toe. Normal phalanges of the great toe. Normal second through fifth metatarsophalangeal joints. Normal interphalangeal joints and phalanges of the lesser toes. The soft tissue structures are unremarkable. RAD/Foot min 3 Views IMPRESSION: Calcaneal enthesophyte. 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 Electronically Signed: Lev Hall MD (Brooks) at 21:59 EDT Reading Location ID and State: [facility] / [place] , Service support ,
[2023-12-28 11:50] LABS: Absolute Lymphocyte Count 2.74 X10^3/uL (0.83-4.51); Absolute Neutrophil Count 8.1 X10^3/uL (2.0-7.7); Basophil# 0.08 X10^3/uL; Basophil% 0.7 % (0-1); Eosinophil# 0.15 X10^3/uL; Eosinophils% 1.3 % (0-5); Hematocrit 46.3 % (40-54); Lymphocyte # 2.74 X10^3/ul (0.83-4.51); Lymphocyte % 22.9 % (19-41); Mean Corp Hgb Conc 32.4 g/dL (32-36); Mean Corpuscular Hgb 28.5 pg (27.0-32.0); Mean Platelet Vol. 9.4 fl (6.2-12.0); Monocyte# 0.88 X10^3/uL; Monocyte% 7.4 % (0-10); NRBC Flagged by Analyzer 0 % (0-5); Neutrophil # 8.06 X10^3/uL (2.7-7.7); Neutrophil % 67.4 % (47-70); Platelet Count 256 K/mm3 (150-450); RBC Distribution Width CV 13.7 % (11.6-14.6); RBC Distribution Width SD 44.1 fl (35.1-43.9); Red Blood Count 5.26 M/mm3 (4.6-6.2); White Blood Count 11.9 K/mm3 (4.4-11.0)
[2023-12-28 12:16] LABS: AST(SGOT) 29 U/L (15-37); Alanine Aminotransfer ALT/SGPT 28 U/L (16-61); Albumin, Serum 3.8 g/dL (3.2-5.0); Alkaline Phosphatase 66 U/L (45-117); Anion Gap 5 (5-15); BUN 10 mg/dL (7-18); BUN/Creat Ratio 10.6 RATIO (10-20); Calcium,Total 9.2 mg/dL (8.5-10.1); Chloride 106 mmol/L (98-107); Cholesterol 135 mg/dL (200); Creatinine, Serum 0.94 mg/dL (0.70-1.30); EST Glomerular Filtration Rate 86 mL/min (>60); Est Glom Filt Rate - Afr Amer 104 mL/min (>60); Globulin 3.9 g/dL (2.2-4.2); Glucose 127 mg/dL (74-106); High Density Lipoprotein 34 mg/dL; Magnesium 2.3 mg/dL (1.6-2.6); Potassium 4.6 mmol/L (3.5-5.1); Protein, Total 7.7 g/dL (6.4-8.2); Sodium Level 139 mmol/L (136-145); Triglycerides 64 mg/dL; Very Low Density Lipoprotein 13 mg/dL (5-40)
[2023-12-28 17:45] LABS: Hemoglobin A1c 5.5 % (3.8-5.6)
== END | disposition home or self-care (01) ==
LOC: MTLAB 09:38
PROVIDERS: PCP Family Medicine; Referring Provider Family Medicine; Visit Provider Family Medicine
DX: M79.672 Pain in left foot (principal); I10 Essential (primary) hypertension; R73.02 Impaired glucose tolerance (oral); Z12.5 Encounter for screening for malignant neoplasm of prostate
CPT/HCPCS: 36415; 73630; 80053; 80061; 83036; 83735; 84153; 85025; G0103

== ENCOUNTER 2024-06-20 11:17 | Emergency (ER) | payer BC, SELFPAY ==
[2024-06-20] VITALS (8 sets, daily range): BP systolic 134–167; BP diastolic 70–85; PULSE 47–87; RESP 16–23; TEMP 36.6–36.8; O2SAT 98–99; BMI 23.7
--- NOTE | 2024-06-20 11:29 | EKG12_ITS ---
Test Reason : BURNING CHEST Blood Pressure : / mmHG Vent. Rate : 046 BPM Atrial Rate : 046 BPM P-R Int : 146 ms QRS Dur : 088 ms QT Int : 468 ms P-R-T Axes : 073 058 062 degrees QTc Int : 409 ms Sinus bradycardia Otherwise normal ECG Confirmed by Alli Cavazos ([id number]), editor producer CRISS GARCIA ([id number]) on 06/23/2024 11:24:48 AM Referred By: KEN Confirmed By:Alli Cavazos
--- NOTE | 2024-06-20 11:40 | RAD_ITS ---
STUDY: X-RAY CHEST REASON FOR EXAM: Male, 63 years old. Chest pain. TECHNIQUE: Single frontal view of the chest on 2 images. COMPARISON: February 14, 2013 FINDINGS: Stable hyperinflation. There is no demonstrated pleural abnormality. Normal size heart. Normal mediastinum and sylvain. Normal visualized pulmonary arteries. Normal visualized aortic arch and descending thoracic aorta. No abnormality of the visualized soft tissue structures of the upper abdomen. RAD/Chest 1 View (Portable) IMPRESSION: Hyperinflation with no acute finding. Electronically Signed: Isaac Huntley MD at 11:53 EDT ,
[2024-06-20] MEDS: Aspirin 81 MG TAB.CHEW 324 MG PO (11:48)
[2024-06-20 12:03] LABS: Absolute Neutrophil Count 6.3 X10^3/uL (2.0-7.7); Basophil# 0.09 X10^3/uL; Basophil% 0.8 % (0-1); Eosinophil# 0.21 X10^3/uL; Eosinophils% 1.9 % (0-5); Hemoglobin 14.6 g/dL (13.0-16.5); Lymphocyte % 30.1 % (19-41); Mean Corp Hgb Conc 31.7 g/dL (32-36); Mean Corpuscular Hgb 27.9 pg (27.0-32.0); Mean Corpuscular Volume 87.8 fL (80-94); Mean Platelet Vol. 9.2 fl (6.2-12.0); Monocyte% 9.1 % (0-10); NRBC Flagged by Analyzer 0 % (0-5); Neutrophil # 6.31 X10^3/uL (2.7-7.7); Neutrophil % 57.5 % (47-70); Platelet Count 247 K/mm3 (150-450); RBC Distribution Width CV 13.8 % (11.6-14.6); RBC Distribution Width SD 44.3 fl (35.1-43.9); Red Blood Count 5.24 M/mm3 (4.6-6.2)
[2024-06-20 12:15] LABS: Anion Gap 3 (5-15); BUN 13 mg/dL (7-18); BUN/Creat Ratio 14.8 RATIO (10-20); Calcium,Total 9.1 mg/dL (8.5-10.1); Chloride 107 mmol/L (98-107); Creatinine, Serum 0.88 mg/dL (0.70-1.30); EST Glomerular Filtration Rate 94 mL/min (>60); Est Glom Filt Rate - Afr Amer 113 mL/min (>60); Glucose 113 mg/dL (74-106); Potassium 4.3 mmol/L (3.5-5.1); Sodium Level 139 mmol/L (136-145); Troponin-I HS (w/2H Reflex) 5 pg/mL (3.0-78.0)
[2024-06-20 13:55] LABS: Reflex Troponin-HS? (from REC) Y
[2024-06-20 14:44] LABS: Troponin-I HS 7 pg/mL (3.0-78.0)
--- NOTE | 2024-06-20 15:21 | ED.VIS.CHEST ---
HPI History of Present Illness Chief Complaint: Chest Pain Detail of Chief Complaint: Transient left-sided burning chest pain 4 weeks ago, 2 weeks ago and this m Informant: patient Onset/Context/Timing Onset: - (HPI narrative) Activity at onset: sudden Timing: Intermittent and Lasts (Seconds) Quality: Positive for Burning Location: Left Parasternal Current Severity: Gone Maximum Severity: Moderate Worsened By: Nothing Relieved By: Nothing Associated Symptoms: Negative for Nausea, Vomiting, Diaphoresis, Dyspnea, Cough, Fever, Lightheadedness, Acid Reflux or Palpitations Narrative Narrative: Patient is a 7-year-old male who presents with transient burning left-sided chest pain that occurred on 3 different occasions. Prior Similar Symptoms: No CVD Risk Factors: Positive for Hypertension; Negative for Diabetes, Hypercholesterolemia, Family History 1' </=55 or Smoking PE Risk Factors: Positive for Recent Travel/Surgery; Negative for Recent Immobilization, Prior DVT or PE, Cancer or OCP + Smoking + >/=35 TAD Risk Factors: Positive for Hypertension; Negative for Marfan's Syndrome or Family History [facility]SH [facility] Medical History Wears glasses Gastric reflux Arthritis Smoker Hoarseness History of colonic polyps Cough Fever URI (upper respiratory infection) Head congestion Gastroesophageal reflux disease HTN (hypertension) Home Medications ?Medication ?Instructions ?Recorded ?Last Taken ?Type metoprolol tartrate 50 mg tablet 50 mg PO BID 03/26/20 04/17/23 History acetaminophen 500 mg capsule 1,000 mg PO BID PRN pain 03/07/23 Unknown History multivitamin 1 tab PO DAILY 03/07/23 Unknown History lactobacillus combination no.4 3 6,000 mmu cells PO DAILY 04/13/23 Unknown History billion cell capsule (Probiotic) omeprazole 20 mg capsule,delayed 20 mg PO DAILY 04/13/23 04/17/23 History release psyllium husk 0.4 gram capsule 0.4 g PO DAILY 04/13/23 Unknown History (Metamucil) Allergy/AdvReac Type Severity Reaction Status Date / Time amoxicillin (From Augmentin) Allergy Other Verified 06/20/24 11:19 clavulanic acid (From Allergy Other Verified 06/20/24 11:19 Augmentin) Family History Brother Cancer sinus surgery Father Heart disease Surgical History History of left shoulder replacement History of colonoscopy S/P left knee arthroscopy S/P correction of deviated nasal septum S/p tibial fracture S/P left knee surgery Social History household members: spouse current occupational status: retired Smoking Status: Current every day smoker tobacco type: cigarettes alcohol intake: never ROS ROS ED Constitutional Constitutional ED: Denies chills, fever(s), subjective or sweats Eyes Eyes: Reports none ENT ENT ED: Denies ear pain, rhinorrhea or sore throat Cardiovascular Cardiovascular: Reports as per HPI; Denies orthopnea or paroxysmal nocturnal dyspnea Respiratory/Chest Respiratory/Chest: Denies cough, dyspnea, dyspnea on exertion, orthopnea or paroxysmal nocturnal dyspnea Gastrointestinal Gastrointestinal: Denies abdominal pain, nausea or vomiting Genitourinary Genitourinary ED: Denies dysuria, hematuria or urinary frequency Musculoskeletal Musculoskeletal: Denies arthralgias, back pain or neck pain Integumentary Denies abscess or rash Neurologic Neurologic: Denies headache(s), paresthesias or weakness Psychiatric Psychiatric: Denies anxiety, depression or suicidal ideation Endocrine Endocrinology: Denies cold intolerance or heat intolerance Hematologic/Lymphatic Hematologic/Lymphatic: Denies easy bleeding or easy bruising EXAM Physical Exam Const Vital Signs: 06/20/24 11:17 06/20/24 11:29 06/20/24 12:17 Temperature 97.8 F Temperature Source Temporal Pulse Rate 48 L 87 Respiratory Rate 16 18 Blood Pressure 166/85 H 156/70 H Blood Pressure Mean 112 98 Pulse Ox 98 99 Oxygen Delivery Method Room Air 06/20/24 12:43 06/20/24 12:45 06/20/24 13:00 Temperature Temperature Source Pulse Rate 49 L 48 L 47 L Respiratory Rate 16 19 H 23 H Blood Pressure 167/71 H 156/70 H 134/73 H Blood Pressure Mean 100 95 91 Pulse Ox Oxygen Delivery Method 06/20/24 14:00 06/20/24 15:00 Temperature Temperature Source Pulse Rate 48 L 48 L Respiratory Rate 20 H 20 H Blood Pressure 137/73 H 140/72 H Blood Pressure Mean 94 94 Pulse Ox 99 99 Oxygen Delivery Method Room Air Positive well nourished and well developed General Appearance ED: well developed and NAD; Negative for pallor HEENT Reports TM's clear and moist mucous membranes normocephalic and atraumatic Tympanic Membrane ED: Yes TM's clear Eyes PERRL and EOMs intact bilaterally General Eye ED: Negative for pale conjunctiva or scleral icterus Neck no lymphadenopathy and supple Chest Wall inspection of chest normal and palpation of chest normal Resp normal respiratory effort and clear to auscultation bilaterally Cardio regular rhythm, S1 normal heart sound, S2 normal heart sound and no murmurs Rate: bradycardia Peripheral Pulses: pulses 2+ throughout GI normal to inspection, nondistended, normoactive bowel sounds, soft to palpation, non-tender, non-distended and no masses; Negative for hepatosplenomegaly Back/Spine no CVA tenderness and no thoracic nor lumbar tenderness Extremity normal to inspection General Extremety ED: Negative for edema or pulses abnormal General Extremity: Negative for edema or pulses abnormal Neuro oriented x3 and CN's II-XII intact bilaterally Sensorium / Orientation: awake and alert Skin no rashes or lesions noted and no wounds General Skin Exam: Negative for jaundice or pallor Heart Score History: Slightly/Non-Suspicious ECG: Normal Age: >45 - <65 years Risk Factors: 1 or 2 Risk Factors Troponin: </= Normal Limit Score: 2 MDM MDM MDM Narrative Medical decision making narrative: Orders were initially placed on patient. Patient was not seen immediately because of acuity. Cardiac workup was undertaken. More concerned about patient's heart rate that I am his chest pain. Patient is presently on 50 mg of metoprolol twice daily. He was placed on this for blood pressure control by his primary care physician Dr. Rodrigues. Differential is noncardiac versus cardiac. Noncardiac would be pain of unknown etiology, chest wall pain, atypical presentation for GERD, Lab Data Attestation: I reviewed the patient's lab results. Lab results narrative: CBC is normal. BMP is normal. First troponin is 5. Second troponin is 7. Delta is 2. With both troponins less than or equal to 7 cardiac etiologies been ruled out. Patient then informed to decrease his metoprolol. Labs: Laboratory Results - last 24 hr 06/20/24 06/20/24 11:45 14:15 WBC 11.0 RBC 5.24 Hgb 14.6 Hct 46.0 MCV 87.8 MCH 27.9 MCHC 31.7 L RDW Std Deviation 44.3 H RDW Coeff of Sung 13.8 Plt Count 247 MPV 9.2 Immature Gran % (Auto) 0.600 Neut % (Auto) 57.5 Lymph % (Auto) 30.1 Gaines % (Auto) 9.1 Eos % (Auto) 1.9 Baso % (Auto) 0.8 Absolute Neuts (auto) 6.3 Absolute Lymphs (auto) 3.30 Nucleated RBC % 0 Sodium 139 Potassium 4.3 Chloride 107 Carbon Dioxide 29.0 Anion Gap 3 L BUN 13 Creatinine 0.88 Estim Creat Clear Calc 84.20 Est GFR (MDRD) Af Amer 113 Est GFR (MDRD) Non-Af 94 BUN/Creatinine Ratio 14.8 Glucose 113 H Calcium 9.1 Troponin I High Sens 5 7 Radiography Diagnostic Testing: Clinical Impression(s) from Imaging Studies Chest X-Ray 06/20/24 11:40 IMPRESSION: Hyperinflation with no acute finding. Electronically Signed: Isaac Huntley MD at 11:53 EDT Reading Location ID and State: [facility] / [place] , Service support , Discharge Plan Triage Chief Complaint: Chest Pain ED Provider: Rush Wynn Dx/Rx/DC Orders Clinical Impression: Burning chest pain, Gastroesophageal reflux disease, Persistent sinus bradycardia, Adverse effect of drug, Adverse effect of drug in therapeutic use, History of hypertension Instructions: ED Chest Pain, Noncardiac, ED Bradycardia Prescriptions: No Action metoprolol tartrate 50 mg tablet 50 mg PO BID acetaminophen 500 mg capsule 1,000 mg PO BID PRN (Reason: pain) multivitamin Tablet 1 tab PO DAILY omeprazole 20 mg capsule,delayed release(DR/EC) 20 mg PO DAILY Patient Comments: TAKE 1 CAPSULE BY MOUTH DAILY 30 MINS BEFORE EATING Probiotic 3 billion cell capsule 6,000 mmu cells PO DAILY Rx Instructions: administer with a meal psyllium husk [Metamucil] 0.4 gram capsule 0.4 g PO DAILY Primary Care Provider: Brock Dove Referrals: Brock Dove MD [Primary Care Provider] - 5-7 Days Activity Restrictions/Additional Instructions: 1. Do not take your evening dose of metoprolol 2. Take half a tablet of metoprolol in the morning and a full tablet in the evening. Print Language: Slovak Disposition Disposition: Home, Self Care
== END 2024-06-20 15:45 | disposition home or self-care (01) ==
PROVIDERS: Emergency Provider Emergency Medicine; PCP Family Medicine; Visit Provider Emergency Medicine
DX: R07.9 Chest pain, unspecified (principal); K21.9 Gastro-esophageal reflux disease without esophagitis; I10 Essential (primary) hypertension; R00.1 Bradycardia, unspecified; T50.905A Adverse effect of unspecified drugs, medicaments and biological substances, initial encounter; Z79.899 Other long term (current) drug therapy; F17.210 Nicotine dependence, cigarettes, uncomplicated
CPT/HCPCS: 71045; 80048; 84484; 85025; 93005; 99284; A4216

== ENCOUNTER 2025-01-26 07:44 | Day surgery (SDC) | payer BC, SELFPAY ==
[2025-01-22 12:40] LABS: Hematocrit 46.6 % (40-54); Hemoglobin 15.3 g/dL (13.0-16.5); Mean Corp Hgb Conc 32.8 g/dL (32-36); Mean Corpuscular Hgb 28.5 pg (27.0-32.0); Mean Corpuscular Volume 86.9 fL (80-94); Mean Platelet Vol. 9.7 fl (6.2-12.0); Platelet Count 254 K/mm3 (150-450); RBC Distribution Width CV 14.2 % (11.6-14.6); RBC Distribution Width SD 45.6 fl (35.1-43.9); Red Blood Count 5.36 M/mm3 (4.6-6.2); White Blood Count 9.1 K/mm3 (4.4-11.0)
[2025-01-22 13:19] LABS: Anion Gap 10 (5-15); BUN 11 mg/dL (4-19); BUN/Creat Ratio 12.6 RATIO (10-20); Calcium,Total 9.3 mg/dL (7.6-11.0); Carbon Dioxide 25.3 mmol/L (21.0-32.0); Chloride 103 mmol/L (98-108); Creatinine, Serum 0.83 mg/dL (0.70-1.20); EST Glomerular Filtration Rate 98 (>60); Glucose 109 mg/dL (70-99); Potassium 4.7 mmol/L (3.3-5.1); Sodium Level 138 mmol/L (133-145)
[2025-01-26] VITALS (9 sets, daily range): BP systolic 124–153; BP diastolic 65–81; PULSE 47–61; RESP 16–18; TEMP 36.2–36.3; O2SAT 95–100; BMI 25.1
--- NOTE | 2025-01-26 07:48 | PCM.PRE.AN2 ---
ASA Classification* ASA Classification ASA Classification: 2 Assessment & Plan Anesthesia* Anesthesia Assessment Anesthesia Assessment: Discussed sedation and/or anesthesia options, risks, benefits, and alternatives with patient/parents/legal guardian/POA. Questions invited. The patient/parents/legal guardian/POA seems to understand and agrees to proceed with anesthesia plan. Reviewed the physical assessment, medical history, allergy history and patient home medications list prior to surgery/procedure/anesthetic and documented any changes. Performed airway and anesthesia risk assessments. Anesthesia Type Anesthesia Type: General Anesthesia Focused Assessment* Airway Assessment Mouth opens: >3 cm Mallampati Score: II Focused Labs Anesthesia Preop lab: CBC WBC 9.1 K/mm3 (4.4-11.0) 01/22/25 11:45 01/22/25 RBC 5.36 M/mm3 (4.6-6.2) 01/22/25 11:45 01/22/25 Hgb 15.3 g/dL (13.0-16.5) 01/22/25 11:45 01/22/25 Hct 46.6 % (40-54) 01/22/25 11:45 01/22/25 Plt Count 254 K/mm3 (150-450) 01/22/25 11:45 01/22/25 CHEMISTRY Potassium 4.7 mmol/L (3.3-5.1) 01/22/25 11:45 01/22/25 Sodium 138 mmol/L (133-145) 01/22/25 11:45 01/22/25 Magnesium 2.3 mg/dL (1.6-2.6) 12/28/23 09:40 12/28/23 BUN 11 mg/dL (4-19) 01/22/25 11:45 01/22/25 Creatinine 0.83 mg/dL (0.70-1.20) 01/22/25 11:45 01/22/25 Glucose 109 mg/dL (70-99) H 01/22/25 11:45 01/22/25 TSH 1.30 uIU/mL (0.358-3.74) 02/13/23 10:45 02/13/23 COAG Pre-Assessment Diagnosis/Proposed Procedure Planned Operative Procedure(s): Micro Direct Laryngoscopy with stripping of vocal cords vs biopsy Anesthesia History 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 When Was Last Pacemaker Check QUESTION #4 FULL TEXT: You/Your Family Experience fever (hyperthermia) with Anesthesia Last Oral Intake Last Oral intake: Last Oral Intake NPO since Meds taken in AM with sips of water? 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 Female No 01/21/25 09:05 HX of Motion Sickness No 01/21/25 09:05 HX of N/V After Surgery No 01/21/25 09:05 Non-Smoker No 01/21/25 09:05 Duration of Surgery greater No 01/21/25 09:05 than 60 minutes Number of Risk Factors PONV Score Height & Weight Height & Weight: Anesthesia: Height & Weight Height 5 ft 8 in 06/20/24 11:17 Respiratory Assessment Respiratory Assessment - spring production supervisor: Respiratory Tract Infection Hx - spring production supervisor Hx Respiratory Tract Infection No 01/21/25 09:05 STOP Sleep Apnea STOP Sleep Apnea - spring production supervisor: STOP Sleep Apnea - spring production supervisor Hx Hypertension Yes: PER PT, CONTROLLED ON 01/21/25 09:05 MEDS Hx Sleep Apnea No 01/21/25 09:05 CPAP BIPAP Do you snore loudly (louder No 01/21/25 09:05 than talking or can be heard Do you often feel tired/ No 01/21/25 09:05 fatigued/ sleepy during daytime? Has anyone observed you stop No 01/21/25 09:05 breathing during sleep? STOP Results Negative 01/21/25 09:05 QUESTION #5 FULL TEXT : Do you snore loudly (louder than talking or can be heard through closed doors)? 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 Specify any problems Hx of Preganancy in last 3 N/A 01/21/25 09:05 Months Nurse Filling Out Transfusion VCHRISTIN 01/21/25 09:05 & Questions: Date: 01/21/25 01/21/25 09:05 Time: 09:06 01/21/25 09:05 Patient unable to answer at this time (ie. confused, unrespo /Reproduction History /Reproductive History - spring production supervisor: /Reproductive Hx- spring production supervisor Hx Now Gestational Age (in weeks): EDC: Hx Hx Para [facility] Medical History Wears glasses Gastric reflux Arthritis Smoker Hoarseness History of colonic polyps Gastroesophageal reflux disease HTN (hypertension) Home Medications ?Medication ?Instructions ?Recorded ?Last Taken ?Type metoprolol tartrate 50 mg tablet 25 mg PO BID 03/26/20 04/17/23 History acetaminophen 500 mg capsule 1,000 mg PO Q6H PRN pain 03/07/23 Unknown History pantoprazole 40 mg tablet,delayed 40 mg PO DAILY 01/21/25 Unknown History release Allergy/AdvReac Type Severity Reaction Status Date / Time amoxicillin (From Augmentin) Allergy Other Verified 01/21/25 08:58 clavulanic acid (From Allergy Other Verified 01/21/25 08:58 Augmentin) Family History Brother Cancer sinus surgery Father Heart disease Surgical History History of left shoulder replacement History of colonoscopy S/P left knee arthroscopy S/P correction of deviated nasal septum S/p tibial fracture S/P left knee surgery Social History household members: spouse current occupational status: retired Smoking Status: Current every day smoker tobacco type: cigarettes alcohol intake: never Review of Systems (Anesthesia) ROS Narrative System reviewed and no additional complaints, except as documented.
[2025-01-26] MEDS: 0.9% Normal Saline (1000mL) 1,000 ML 15 ML IV (08:19)
--- NOTE | 2025-01-26 09:15 | VOCOB_PTH ---
PATIENT: LINDA FREIRE [place] [facility] [place][id number] AGE/SX: 64/M ROOM: RE01/26/[address]: Dr. Hari Keith MD : 1960 BED: DIS: 01/26/2025 SPEC #: [id number] RECD: 01/26/25 12:06 STATUS: ENRIQUE MARYANNE #: [id number] ED: 01/26/25 09:[address]: Hari Keith DEPT: SURGICAL PATHOLOGY RECD BY: Rashad Jain ENTERED: 01/26/25 12:06 SP TYPE: VOCAL CORD OTHR DR: Dr. Brock Dove MD Tissues: A - Vocal cord, NOS Procedures: Surgery Specimen Level IV HEADER OPERATION: Micro direct laryngoscopy with biopsy of vocal cords PRE-OP DIAGNOSIS: Dysphonia TISSUE SUBMITTED: A- Left true vocal cord neoplasm MICROSCOPIC DIAGNOSIS A. Left true vocal cord, neoplasm, biopsy: * Invasive squamous cell carcinoma MICROSCOPIC DESCRIPTION Slides are reviewed. GROSS DESCRIPTION A. Received in formalin in a container labeled with the patient's name, date of , and left true vocal cord neoplasm are multiple red-king fragments of soft tissue measuring 0.7 x 0.6 x 0.3 cm in aggregate. Submitted in toto in A1. B 01/27/2025 CPT:91539 ADDENDUM ADDENDUM ADDENDUM ADDENDUM ADDENDUM ADDENDUM ADDENDUM ADDENDUM ADDENDUM ADDENDUM 03/10/2025 15:53 ADDENDUM 03/10/2025 15:53 ADDENDUM 03/10/2025 15:53 ADDENDUM 03/10/2025 15:53 ADDENDUM 03/10/2025 15:53 This addendum is added to incorporate an outside pathology consultation report. The case was examined at [facility] by Dr. Dixon (#[id number]) and the following diagnosis was rendered. A. Left true vocal cord, neoplasm, biopsy: Invasive squamous cell carcinoma. Please see complete above mentioned consultation report in EMR
[2025-01-26] MEDS: EPINEPHrine Nasal 0.1% 30 ML Bottle (09:55)
--- NOTE | 2025-01-26 10:22 | DS.PCM_ITS ---
Providers Primary Care Physician: Dr. Brock Dove MD Reason For Visit: Micro Direct Laryngoscopy with stripping of vocal Medications at Discharge Home Medications metoprolol tartrate 50 mg tablet 25 mg PO BID 03/26/20 acetaminophen 500 mg capsule 1,000 mg PO Q6H PRN pain 03/07/23 pantoprazole 40 mg tablet,delayed release 40 mg PO DAILY 01/21/25 Weight / BMI Weight Weight: 75 kg Body Mass Index (BMI) 25.1 ABG / Lab / Microbiology Data 01/22/25 11:45 01/22/25 11:45 D/C Instructions Discharge Diet: No restrictions Discharge Activity: Return to Normal Activity DC O2, CPAP, BIPAP Needs Home O2 Discharge instructions: No Please Follow Up With: Hari Keith MD When: next week Meaningful Use Info Meaningful Use Meaningful Use Diagnoses (Choose all that apply): None applicable Ischemic Stroke Statin Dosing Therapy Reference: STATIN DOSE THERAPY REFERENCE: * Patients > 75 years receive moderate or high dose statin therapy. * Patients 75 years or YOUNGER should receive HIGH intensity statin dose unless contraindicated. You will be required to document reason for non-treatment if statin daily dose does not meet guidelines. HIGH DOSE STATIN THERAPY DAILY Atorvastatin > than or = to 40 mg Rosuvastatin > than or = to 20 mg Amlodipine + Atorvastatin > than or = to 2.5/40 mg Ezetimibe + Simvastatin 10/80 mg Simvastatin 80mg Discharge Plan Admission Attending Provider: Hari Keith Primary Care Provider: Brock Dove Instructions Print Language: Tamazight Discharge Orders/Prescriptions Prescriptions: No Action metoprolol tartrate 50 mg tablet 25 mg PO BID acetaminophen 500 mg capsule 1,000 mg PO Q6H PRN (Reason: pain) pantoprazole 40 mg tablet,delayed release (DR/EC) 40 mg PO DAILY Referrals / Follow Up: Brock Dove MD [Primary Care Provider] - Disposition Disposition (needs filled in before D/C Order can be placed): Home, Self Care
--- NOTE | 2025-01-26 10:24 | OP.PCM_ITS ---
Operative Report (Standard) Operative Information Date of Procedure: 01/26/25 Pre-Operative Diagnosis: hoarseness right vocal cord mass Post-Operative Diagnosis: same Surgery/Procedure Performed: Microdirect laryngoscopy with biopsy volunteer services manager: No Type of Anesthesia: General RN Documented Start/Stop Times: Operation Date: 01/26/25 09:15 Case Time Into Pre-Op 01/26/25 07:53 Out of Pre-Op 01/26/25 09:33 Anesthesia Start 01/26/25 09:37 Into Room 01/26/25 09:37 Procedure Start 01/26/25 09:55 Procedure Start Time: 09:55 Procedure Stop Time: 10:22 Select all DRAINS/GRAFTS/IMPLANTS that apply: None Estimated Blood Loss: minimal Specimen collected: Yes Description of specimen(s) removed: left true vocal cord neoplasm Description of surgery: The patient was taken to the operating room for . He was placed in the supine position on the operating room table. He was given sufficient general endotracheal anesthesia. The table was turned 90 degrees in a clockwise fashion. The patient was draped sterilely. A gum guard was placed on the upper dentition. A Dedo laryngoscope inserted the patient's mouth and then into the oropharynx. The epiglottis and base of tongue were normal. Piriform sinuses were normal. The larynx was exposed. He was then placed in suspension on the [place] stand. The operating microscope was used throughout the rest of the case. There was a left vocal cord mass that was localized to the true cord but extended into the ventricle. It extended to the anterior commissure. There was no involvement of the right vocal cord. I grasped a portion of the neoplasm with cup forceps. I then cut this from the surrounding tissue and sent this for permanent section. Hemostasis was achieved with topical adrenaline on pledgets. Once hemostasis was achieved all instrumentation was removed. Patient was turned back to regular anesthesia position and awoken. he was brought to the recovery room in stable condition. Blood loss minimal, replacement none. Sponge, needle, and instrument count correct at the end of the procedure. Surgical Findings: right vocal cord neoplsm Complications Complications: No
--- NOTE | 2025-01-26 10:40 | PCM.POST.ANE ---
Anesthesia: Postop Eval I Current Vital Signs Temperature: 97.1 F Pulse Rate: 61 Blood Pressure: 143/71 Respiratory Rate: 18 Pulse Ox: 97 Oxygen Delivery Method: Room Air Assessment Airway patent: Yes Spontaneous unlabored respirations: Yes Mental status: Awake nausea: No Vomiting: No Anesthesia Complication: No Fluid Hydration Crystalloid volume administer (ml): 600 Total IV fluid infused: 600 Progress Note Anesthesia document: Postop Eval 1 completed: Yes
--- NOTE | 2025-01-26 12:33 | POSTOPAN2_ITS ---
Anesthesia Postop Eval I Sum Postop Eval Completion status Anesthesia document: Postop Eval 1 completed: Yes Anesthesia Postop Eval I Summary Anesthesia Postop Eval I Summary: Anesthesia Postop Eval I: Assessment Summary Airway patent Yes 01/26/25 10:41 [email or web address] Spontaneous unlabored Yes 01/26/25 10:41 [email or web address] respirations Mental status Awake 01/26/25 10:41 [email or web address] nausea No 01/26/25 10:41 [email or web address] Vomiting No 01/26/25 10:41 [email or web address] Anesthesia Postop Eval I: Fluid Summary Crystalloid volume administer 600 01/26/25 10:41 [email or web address] (ml) Colloids volume administered ( ml) Blood Product volume administered (ml) Total IV fluid infused 600 01/26/25 10:41 [email or web address] Anesthesia Postop Eval I: Summary Notes Anesthesia Complication No 01/26/25 10:41 [email or web address] Anesthesia Complication Comment: Post-operative progress note Anesthesia: Postop Eval II Evaluation Mental status: Awake Pain Level: 0 nausea: No Vomiting: No
--- NOTE | 2025-01-26 12:33 | PCM.POSTANE2 ---
Anesthesia Postop Eval I Sum Postop Eval Completion status Anesthesia document: Postop Eval 1 completed: Yes Anesthesia Postop Eval I Summary Anesthesia Postop Eval I Summary: Anesthesia Postop Eval I: Assessment Summary Airway patent Yes 01/26/25 10:41 CS [email or web address] Spontaneous unlabored Yes 01/26/25 10:41 CS [email or web address] respirations Mental status Awake 01/26/25 10:41 [email or web address] nausea No 01/26/25 10:41 CS [email or web address] Vomiting No 01/26/25 10:41 [email or web address] Anesthesia Postop Eval I: Fluid Summary Crystalloid volume administer 600 01/26/25 10:41 CS [email or web address] (ml) Colloids volume administered ( ml) Blood Product volume administered (ml) Total IV fluid infused 600 01/26/25 10:41 [email or web address] Anesthesia Postop Eval I: Summary Notes Anesthesia Complication No 01/26/25 10:41 [email or web address] Anesthesia Complication Comment: Post-operative progress note Anesthesia: Postop Eval II Evaluation Mental status: Awake Pain Level: 0 nausea: No Vomiting: No
== END 2025-01-26 12:22 | disposition home or self-care (01) ==
LOC: SDC 07:45 → AC 07:46
PROVIDERS: PCP Family Medicine; Referring Provider Otolaryngology; Visit Provider Otolaryngology
PROC: 0CJS8ZZ Inspection of Larynx, Via Natural or Artificial Opening Endoscopic (ICD-10-PCS; CPT 31575; principal; 2025-01-26 09:10)
DX: C32.0 Malignant neoplasm of glottis (principal); I10 Essential (primary) hypertension; F17.210 Nicotine dependence, cigarettes, uncomplicated; Z79.899 Other long term (current) drug therapy
CPT/HCPCS: 31536; 00320; 36415; 80048; 85027; 88305; J2405

== ENCOUNTER → 2025-02-17 | Outpatient (CLI) | payer BC, SELFPAY ==
--- NOTE | 2025-02-17 08:00 | PET_ITS ---
PROCEDURE: PET/CT TUMOR BASE -THIGH INIT 02/17/2025 REASON FOR EXAM: 64 y/o M with THYROID TECHNIQUE: Following the intravenous administration of radionucleotide, image acquisition on a dedicated PET/CT unit was performed at one hour post injection. A preliminary CT study encompassing the Skull base, neck, chest, abdomen, pelvis, and proximal thighs was performed for purposes of attenuation correction and anatomic localization. The proximal thighs were also included. The patient's blood glucose level was 101 mg/dL (allowable range: 50-180 mg/dL). RADIOPHARMACEUTICAL: 13.52 mCi 18F-FDG (Fluorodeoxyglucose F18) IV was injected into he patient. RADIATION DOSE SUMMARY: Effective Dose: Approximately 7 mSv for a standard whole-body PET scan Organ Doses: Varies by organ, with higher doses typically to the bladder, liver, and brain COMPARISON: COMPARISON FROM CT, PET OR OTHER PERTINENT EXAMS: No priors available. FINDINGS: Physiologic uptake: There may be expected metabolic uptake within the brain, tongue and floor of the mouth and larynx/vocal cords, heart, sylvain (many normal individuals have hilar uptake in less than 3 nodes with mildly avid hilar nodes less than 2.7 SUV), liver and spleen, system, and GI tract and symmetric muscle uptake. FDG AVID AND NON-AVID LESIONS. Reported avid SUV values (g/mL*) are maximum SUV. Limited visualization of the paranasal sinuses shows extensive mucosal disease of the bilateral ethmoid and maxillary sinuses. No air-fluid level is noted. NECK: Bilateral hypermetabolic activity laryngeal area is seen, [id number]-right. Left-sided SUV max of 5.3. While this may simply represent muscle hyperactivity, cannot exclude the presence of malignancy; consider direct visualization. No abnormal uptake is seen in the region of the thyroid bed CHEST: Chest wall- There are no significant chest wall abnormalities. Axilla- There are no significant axillary abnormalities. Lung parenchyma- There are no significant lung parenchyma abnormalities. Mediastinum- There are no significant hilar or mediastinal adenopathy. Pleura- There are no significant pleural abnormalities. Moderate coronary artery calcification is seen. ABDOMEN: A right adrenal adenoma is noted. Stomach- No significant abnormalities. Liver- No significant abnormalities. Spleen- No significant abnormalities. Pancrease- No significant abnormalities. Kidneys- No significant abnormalities. Bowel- Normal bowel activity. Spine- No significant abnormalities. Prominent aortic calcification is noted; no evidence of abdominal aortic aneurysm. PELVIS: Bowel- Fcjn-xy-vtoyaiig sigmoid diverticulosis is noted. Normal physiologic bowel activity is identified. Masses- There are no pelvic masses. Bones- With the use of bone window settings, there are no osteolytic or osteoblastic lesions. There are no FDG avid lesions within the visualized portion of the axial skeleton. PET/PET/CT Tumor Base -Thigh Init IMPRESSION: FDG avid- 1. Bilateral hypermetabolic activity laryngeal area is seen, [id number]-nngy- right. While this may simply represent muscle hyperactivity, cannot exclude the presence of malignancy; consider direct visua lization. 2. No metastatic focus is evident. Other: [id number]-na-[id number] sigmoid diverticulosis. Right adrenal adenoma. Moderate coronary artery calcification. Please note the low-dose CT scan was performed to facilitate PET image reconstr uction and anatomic localization and does not replace a diagnostic CT. Any diagnostic CT requested and performed at the time of the PET will be reported separately. Reading Location: [place] [id number]
== END | disposition home or self-care (01) ==
LOC: ONC 07:43
PROVIDERS: PCP Family Medicine; Referring Provider Otolaryngology; Visit Provider Otolaryngology
DX: C32.0 Malignant neoplasm of glottis (principal)
CPT/HCPCS: 78815; A9552

== ENCOUNTER → 2025-03-11 | Outpatient (CLI) | payer BC, SELFPAY ==
--- NOTE | 2025-03-11 13:49 | CT_ITS ---
PROCEDURE: SOFT TISSUE NECK WITH CONTRAST 03/11/2025 REASON FOR EXAM: LARYNGEAL CARCINOMA TECHNIQUE: CT of the soft tissues of the neck from the orbits to the upper mediastinum with intravenous contrast. CONTRAST: Isovue 370 VOLUME: 100 mL One or more dose reduction techniques were used (e.g., Automated exposure control, adjustment of the mA and/or kV according to patient size, use of iterative reconstruction technique). RADIATION DOSE SUMMARY: CTDlvol: 16.52 mGy DLP: 540.60 mGycm COMPARISON: CT soft tissue neck with IV contrast, 03/20/2023. FINDINGS: Airway: The oropharynx, nasopharynx and hypopharynx are normal. The epiglottis, aryepiglottic folds, pyriform sinuses, glottis and subglottic airway appear unremarkable. There are laryngeal cartilages are normal. Salivary glands: The major salivary glands are normal. Lymph nodes: There is no cervical lymphadenopathy. Thyroid: Normal. Vasculature: There is calcific vascular disease of both carotid bifurcations without significant stenosis. Orbits: There is bilateral optic nerve head drusen. Paranasal sinuses and mastoids: There is mucoperiosteal thickening of the frontal sinuses, the ethmoidal air cells, the maxillary sinuses and the sphenoid sinuses. The mastoid air cells and the external, middle and inner ears appear unremarkable. Lung apices: Normal. Upper mediastinum: There is calcific vascular disease of the aortic arch in the origin of the brachiocephalic artery, the left common carotid artery and the left subclavian artery, without significant stenosis. Bones: There is degenerative disc disease, C2-3 through C6-7 with narrowing of the disc spaces and marginal osteophytes. Visualized intraorbital contents: There is calcific vascular disease of the intracranial portion of both internal carotid arteries in the left vertebral artery. The brain parenchyma is unremarkable. CT/Soft Tissue Neck WITH Contrast IMPRESSION: 1. There are no findings to suggest laryngeal carcinoma. 2. Other findings as noted. Reading Location: [id number]
== END | disposition home or self-care (01) ==
PROVIDERS: PCP Family Medicine; Referring Provider Otolaryngology; Visit Provider Otolaryngology
DX: C32.0 Malignant neoplasm of glottis (principal)
CPT/HCPCS: 70491; Q9967

== ENCOUNTER → 2025-04-23 | Outpatient (CLI) | payer BC, SELFPAY ==
--- NOTE | 2025-04-23 11:19 | ST.MBS ---
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 Treatment began 04/06/2025. No PEG tube in place. BSE 04/17/2025 recommended regular textures / thin liquids w/ MBSS to further assess swallow function and aspiration risk. Currently, he has odynophagia (7-8/10) and increased mucous production; otherwise, no other swallowing-related symptoms from radiation treatment. He is consuming Regular textures / Thin liquids and reports no decline in amount of po intake at this time. Current Diet Ordered: Regular textures / Thin liquids Dentition: Natural Teeth and Missing Teeth Mental Status: WNL Respiratory Status: Oxygenating on Room Air Penetration-Aspiration Scale Penetration-Aspiration Scale: OBJECTIVE ASSESSMENT OF SWALLOW FUNCTION (QUANTITATIVE ? PER TRIAL): PENETRATION / ASPIRATION SCALE (LOGAN): 1 = does not enter airway 2 = enters airway/above vocal folds/ejected 3 = enters airway/above vocal folds/not ejected 4 = enters airway/contacts vocal folds/ejected 5 = enters airway/contacts vocal folds/not ejected 6 = enters airway/below vocal folds/ejected 7 = enters airway/below vocal folds/not ejected despite effort 8 = enters airway/below vocal folds/no effort VIDEOFLOROSCOPIC SCALE SCORE (LOGAN): Grade I = aspiration of material that has penetrated into the laryngeal vestibule, intact cough reflex Grade II = aspiration < 10 % of the bolus, intact cough reflex Grade III = aspiration of < 10 % of the bolus, reduced cough reflex or aspiration of > 10 % of the bolus, intact cough reflex Grade IV = aspiration of > 10 % of the bolus, reduced cough reflex Penetration-Aspiration Scale Score Thin Liquid via teaspoon: Result: 1= does not enter airway Thin Liquid via teaspoon Trial 2: Result: 1= does not enter airway Thin Liquid via small single sip: cup: Result: 1= does not enter airway [place] Thick Liquid via small single sip: cup: Result: 1= does not enter airway Pudding via teaspoon: Result: 1= does not enter airway Comment: Esophageal screen - Mild retention in the upper esophagus. 1/2 Cookie: Result: 1= does not enter airway Comment: Esophageal screen - Complete clearance. Thin Liquid via sequential sips:straw: Result: 2= enter airway/above vocal folds/ejected Oral Phase Labial Seal: No Labial Escape Tongue Control During Bolus Hold: Posterior escape of greater than half of bolus Bolus Preparation/Mastication: Timely and efficient chewing and mashing Bolus Transport/Lingual Motion: Repetitive/disorganized tongue motion Oral Residue: Residue collection on oral structures Pharyngeal Phase Initiation of Pharyngeal Swallow: Bolus head in pyriforms Soft Palate Elevation: Trace column of contrast/air between soft palate and pharyngeal wall Laryngeal Elevation: Comp. Superior move thyroid cart w/comp. apprx arytenoid cart-epig pet Anterior Hyoid Excursion: Complete anterior movement Epiglottic Movement: Complete inversion Laryngeal Vestibule Closure at Height of Swallow: Incomplete; narrow column of air/contrast in laryngeal vestibule (trace laryngeal penetration, completely ejected) Pharyngeal Stripping Wave: Present - diminished Pharyngoesophageal Segment Opening: Parital distension and partial duration; parital obstruction of flow Tongue Base Retraction: Narrow column of contrast between tongue base & post. pharyngeal wall Pharyngeal Residue: Trace residue within or on pharyngeal structures Esophageal Phase Esophageal Clearance: Esophageal retention (Upper esophagus) Diagnosis/Impression Diagnosis: Mild oropharyngeal dysphagia R13.12 Impression: The oral phase is marked by... -Lingual pumping w/ pudding. -Posterior loss of thin liquids to the pyriforms prior to swallow onset. The pharyngeal phase is marked by... -Mildly delayed swallow onset w/ liquids. -Mildly decreased TB retraction and pharyngeal stripping wave w/ trace-mild pharyngeal residues. -Trace laryngeal penetration w/ complete ejection 1X w/ thin liquids via sequential straw. No aspiration observed. The esophageal phase is marked by... -Esophageal retention of pudding, which fully cleared after the following trial, which was 1/2 of a Eufemia Doone cookie. Recommendations Diet: Regular Textures and Thin Liquids Compensatory Strategies: Small Bites, Small Sips, Slow Rate, Sitting upright and Remain sitting upright for 30 minutes after PO intake Recommend Repeat Modified Barium Swallow: Yes Comment: Repeat MBSS 3 months after completion of radiation to monitor swallow function as the patient is at risk for worsening dysphagia and aspiration risk s/p radiation treatment. Need for Skilled Speech Therapy Services: Yes Comment: Continue to follow w/ OP ST services during and following radiation treatment. Education Completed: 1. Described result of evaluation. and 2. Pt understands evaluation & agrees with goals and treatment plan. Status Active ST Patient: Active Contact Information [facility] [place] Speech Therapy:: Meredith Tellez M.A. CCC-OPERATIONS ARCHITECT? Speech-Language Pathologist?? [facility] [address] [place] [address]? [email or web address]?? [phone]
--- OUTSIDE RECORDS SUMMARY | 2025-04-23 18:35 | XMS RPT_ITS | CCD ---
Author Organization [facility] Providers Care Deputy Bailiff Name Role Phone Dr. Satya Dove Primary Care Provider [phone] Joya Wilson Attending Provider Unavailable Dr. Satya Dove Referring Provider Dr. Carlitos Dos Santos Attending Provider Dr. Carlitos Dos Santos Other Provider Dr. Satya Dove Primary Care Provider Satya Rogel MD Primary Care Provider [phone] SATYA ROGEL Primary Care Unavailable SUDHEER PAEZ Attending Unavailable Dr. Satya Dove MD Primary Care Provider Dr. Hari Keith MD Attending Provider Dr. Hari Keith MD Referring Provider Satya Dove MD Unavailable Elizabeth Sullivan DO Unavailable [phone] Minna Perla RN Unavailable Unavailable Satya Dove MD Primary Care Provider [phone] Elizabeth Sullivan DO Attending Provider Dr. Bg Keith MD Referring Provider Dr. Satya Dove MD Referring Provider Dr. Elizabeth Sullivan DO Referring Provider ELIZABETH SULLIVAN Referring Unavailable RAUL NAVA Attending Unavailable SATYA DOVE Primary Care Unavailable GUALBERTO FRIED Attending Unavailable GUALBERTO COONEY Referring Unavailable SATYA DOVE Primary Care Unavailable ELIZABETH SULLIVAN Referring Unavailable RAUL NAVA Attending Unavailable SCHINNER, SATYA Primary Care Unavailable GUALBERTO FRIED Attending Unavailable GUALBERTO FRIED Referring Unavailable SATYA DOVE Primary Care Unavailable Dr. Elizabeth Sullivan DO Referring Provider Schinner, Satya E Primary Care Unavailable Sagar, Hari Referring Unavailable Sagar, Hari Attending Unavailable Schinner, Satya E Primary Care Unavailable Wynn, Rush Attending Unavailable Schinner, Satya E Primary Care Unavailable Page, Elizabeth Referring Unavailable PageElizabeth salazar Attending Unavailable Page, Elizabeth Attending Unavailable Page, Elizabeth Referring Unavailable Schinner, Satya E Primary Care Unavailable Sagar, Hari Attending Unavailable Schinner, Satya E Primary Care Unavailable Sagar, Hari Referring Unavailable Schinner, Satya E Primary Care Unavailable Sagar, Hari Attending Unavailable Sagar, Hari Referring Unavailable Page, Elizabeth Attending Unavailable Schinner, Satya E Primary Care Unavailable Page, Elizabeth Attending Unavailable Schinner, Satya E Primary Care Unavailable Page, Elizabeth Attending Unavailable Schinner, Satya E Primary Care Unavailable Page, Elizabeth Attending Unavailable Schinner, Satya E Primary Care Unavailable Schinner, Satya E Primary Care Unavailable Page, Elizabeth Attending Unavailable Sagar, Hari Referring Unavailable Page, Elizabeth Attending Unavailable Schinner, Satya E Primary Care Unavailable Schinner, Satya E Referring Unavailable Page, Elizabeth Attending Unavailable Schinner, Satya E Primary Care Unavailable Schinner, Satya E Referring Unavailable Dr. Elizabeth Sullivan DO Referring Provider Allergies Allergy Classification Reported Allergen(s) Allergy Type Date of Onset Reaction(s) Facility (10 sources) Amoxicillin Drug Allergy 3 Other [facility] Comment on above: GI issues, Unable to digest (10 sources) Clavulanate Drug Allergy 3 Other [facility] Comment on above: GI issues, Unable to digest (2 sources) Amoxicillin-Pot Clavulanate Propensity to adverse reactions to drug 5 Diarrhea U [facility] (1 source) Amoxicillin Drug Allergy 5 [facility] Repository (1 source) Clavulanate Drug Allergy 5 [facility] Repository Medications Current Medications Medication Drug Class(es) Dates Sig (Normalized) Sig (Original) acetaminophen 500 mg oral capsule (10 sources) Start: 03-07-2023 take 2 capsules by mouth every six hours as needed for pain Acetaminophen 500 mg capsule Active 1000 mg PO EVERY 6 HOURS as needed for pain March 07, 2023 12:00am Start: 03-07-2023 take 1000 mg by mout h twice daily Acetaminophen Active 1000 MG PO TWICE A DAY March 07, 2023 12:00am azithromycin 250 mg oral tablet (3 sources) Macrolide Antimicrobial Start: 04-30-2021 take 2-5 tablets by mouth once daily Azithromycin (Zithromax) 250 mg tablet Active 0 PO .COMPLEX April 30, 2021 12:31pm take 500 mg today (day 1), then 250 mg for 4 days (days 2-5) PO 24 hr buPROPion hydrochloride 150 mg extended release oral tablet (3 sources) Aminoketone take 1 tablet by mouth once daily buPROPion XL (WELLBUTRIN XL) 150 mg 24 hr tablet Take 150 mg by mouth once daily. 0 Active esomeprazole 40 mg delayed release oral capsule (3 sources) Proton Pump Inhibitor Start: 08-17-2005 NEXIUM 40 MG CAP Indications: Esophageal reflux Take one (1) capsule daily 90 1 08/17/2005 Active Magic Mouth Wash (Bmx) 180 mL suspension (1 source) Start: 04-20-2025 Magic Mouth Wash (Bmx) 180 mL suspension Active 15 mL PO .qid as needed for pain 180 5 April 20, 2025 12:00am Squamous cell carcinoma of larynx Malignant neoplasm of larynx, unspecified diphenhydramine 12.5 mg/5 mL oral liquid 60 mL; aluminum-mag hydroxide-simethic one 400 mg-400 mg-40 mg/5 mL oral susp 60 mL; Lidocaine Viscous 2 % mucosal solution 60 mL; Per 180 mL metoprolol tartrate 50 mg oral tablet (17 sources) beta-Adrenergic Juancho Start: 03-26-2020 Metoprolol Tartrate 50 mg tablet Active 25 mg PO TWICE A DAY March 26, 2020 12:00am Start: 03-26-2020 take 50 mg by mouth twice rosalva y Metoprolol Tartrate Active 50 MG PO TWICE A DAY March 26, 2020 12:00am take 0.5 tablet by m outh in the morning, then take 1 tablet by mouth in the evening Metoprolol 50 MG tab regular release TAKE 1/2 (ONE-HALF) OF A TABLET BY MOUTH IN THE MORNING AND TAKE 1 TABLET IN THE EVENING Active Multivitamin preparation (4 sources) Start: 03-07-2023 take 1 tablet by mouth once daily Multivitamin Active 1 TABLET PO DAILY March 07, 2023 12:00am Completed/Discontinued Medications Medication Drug Class(es) Dates Sig (Normalized) Sig (Original) escitalopram 20 mg oral tablet (5 sources) Serotonin Reuptake Inhibitor End: 03-19-2025 take 1 tablet by mouth once daily escitalopram 20 MG tablet Take 1 tablet by mouth daily. 03/19/2025 Discontinued fluticasone propionate 0.05 mg/actuat metered dose nasal spray (7 sources) Corticosteroid Start: 02-10-2025 End: 02-27-2025 Fluticasone Propionate 50 mcg/actuation spray,suspension Discontinued INTRANASAL February 10, 2025 12:00am February 27, 2025 9:11am Start: 04-01-2024 End: 03-19-2025 fluticasone 50 MCG/ACT Suspe nsion nasal spray USE 1 spray IN each nostril twice daily, when improved then once daily 04/01/2024 03/19/2025 Discontinued Lactobacillus Combination No.4 (Probiotic) 3 billion cell capsule (9 sources) Start: 04-13-2023 End: 01-21-2025 take 3 capsules by mouth once daily Lactobacillus Combination No.4 (Probiotic) 3 billion cell capsule Discontinued 6000 NMA PO DAILY April 13, 2023 12:00am January 21, 2025 8:59am administer with a meal Start: 04-13-2023 take 3 capsules by m outh once daily Lactobacillus Combination No.4 (Probiotic) 3 billion cell capsule Active 6000 MMU CELLS PO DAILY April 13, 2023 12:00am administer with a meal lidocaine 4%/oxymetazoline 0.05% 1:1 compounded solution 2 spray (1 source) Start: 03-19-2025 End: 03-19-2025 2 spray, Each Nostril, ONCE (IN CLINIC), 1 dose, On Jennifer 03/19/25 at 1130, Combination Lidocaine/Afrin Multivitamin tablet (6 sources) Start: 03-07-2023 End: 01-21-2025 Multivitamin tablet Discontinued 1 {tbl} PO DAILY March 07, 2023 12:00am January 21, 2025 9:00am omeprazole 20 mg delayed release oral capsule (9 sources) Proton Pump Inhibitor Start: 04-13-2023 End: 01-21-2025 take 1 capsule by mouth once daily Omeprazole 20 mg capsule,delayed release(DR/EC) Discontinued 20 mg PO DAILY April 13, 2023 12:00am January 21, 2025 9:00am pantoprazole 40 mg delayed release oral tablet (8 sources) Proton Pump Inhibitor Start: 01-12-2025 End: 03-19-2025 take 1 tablet by mouth once daily Pantoprazole 40 mg tablet,delayed release (DR/EC) Discontinued 40 mg PO DAILY January 21, 2025 12:00am February 27, 2025 9:12am psyllium 400 mg oral capsule (9 sources) Start: 04-13-2023 End: 01-21-2025 Psyllium Husk (Metamucil) 0.4 gram capsule Discontinued 0.4 g PO DAILY April 13, 2023 12:00am January 21, 2025 9:00am Problems Active Problems Problem Classification Problem Date Documented Da te Episodic/Chronic Cancer of head and neck (20 sources) Malignant tumor of larynx; Translations: [Malignant neoplasm of glottis] Onset: 02-10-2025 Chronic Comment on above: T1 Squamous Cell Car cinoma of the Larynx Cardiac dysrhythmias (6 sources) Persistent sinus bradycardia; Translations: [Bradycardia, unspecified] 06-28-2024 Episodic E Codes: Adverse effects of medical drugs (12 sources) Adverse reaction to drug; Translations: [Adverse effect of unspecified drugs, medicaments and biological substances, initial encounter] 06-28-2024 Episodic Esophageal disorders (15 sources) Gastroesophageal reflux disease; Translations: [Gastro-esophageal reflux disease without esophagitis] Onset: 5 04-16-2020 Chronic Fever of unknown origin (12 sources) Fever; Translations: [Fever, unspecified] 03-02-2023 Episodic Neoplasms of unspecified nature or uncertain behavior (1 source) Neoplasm of uncertain behavior of larynx; Translations: [Neoplasm of uncertain behavior of larynx] Onset: Episodic Nonspecific chest pain (7 sources) Other chest pain; Translations: [Burning chest pain] Onset: 4 06-28-2024 Episodic Other and unspecified benign neoplasm (9 sources) History of polyp of colon; Translations: [Personal history of colonic polyps] 04-17-2023 Episodic Other and unspecified benign neoplasm (2 sources) Personal history of colonic polyps; Translations: [Personal history of colonic polyps] 04-17-2023 Episodic Other circulatory disease (6 sources) H/O: hypertension; Translations: [Personal history of other diseases of the circulatory system] 06-28-2024 Episodic Other gastrointestinal disorders (3 sources) Irritable bowel syndrome; Translations: [Irritable bowel syndrome without diarrhea] Onset: 6 10-16-2005 Chronic Other gastrointestinal disorders (2 sources) Dysphagia; Translations: [Dysphagia] Onset: Episodic Other hereditary and degenerative nervous system conditions (2 sources) Impaired cognition; Translations: [Mild cognitive impairment, so stated] 04-03-2024 Chronic Other lower respiratory disease (12 sources) Cough; Translations: [Cough] 03-02-2023 Episodic Other screening for suspected conditions (not mental disorders or infectious disease) (10 sources) Patient encounter status; Translations: [Encounter for screening for malignant neoplasm of colon] 03-02-2023 Episodic Other upper respiratory disease (12 sources) Respiratory tract congestion; Translations: [Nasal congestion] 03-02-2023 Episodic Other upper respiratory disease (6 sources) Dysphonia; Translations: [Dysphonia] 02-10-2025 Episodic Other upper respiratory infections (12 sources) Upper respiratory infection; Translations: [Acute upper respiratory infection, unspecified] 03-02-2023 Episodic Poisoning by nonmedicinal substances (4 sources) Nicotine poisoning; Translations: [Toxic effect of other tobacco and nicotine, accidental (unintentional), initial encounter] Onset: 5 03-19-2025 Episodic Unclassified (20 sources) C32.9 - Malignant neoplasm of larynx, unspecified Unclassified (2 sources) STAFF SCIENTIST Eval; Translations: [STAFF SCIENTIST Eval] Onset: 5 Past or Other Problems Problem Classification Problem Date Documented Da te Episodic/Chronic Mood disorders (2 sources) Mood disorders Onset: 03-05-2025 Resolved: 03-19-2025 03-05-2025 NEGATED: Highlighted row has been ruled out!Unclassified (2 sources) No known active problems 03-05-2025 Results Test Name Value Interpretation Reference Range Facility SP/HP.[email or web address].Javad 04-17-2025 SP/HP.SP.EV [facility] Speech Pathology [facility] [address] [place] [address] / REHABILITATION SERVICES INITIAL EVALUATION MR#: [id number] Acct: [id number] Name: DOMINIK VALENTINE Rep #: [id number] : 1960 64 From: Meredith Tellez M.A., [facility]-STAFF SCIENTIST Referring Dr.: Dr. 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 Treatment began 04/06/2025. No PEG tube in place. 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 Current Diet Solids Current Diet: Regular Current Diet Liquids Current Liquids: Thin Objective Dysphagia Administered by Administered by: Self Thin Liquids Pharyngeal phase: laryngeal elevation mildly restricted slow initiation Comments: Trialed water via bottle and straw w/ timely swallow, good oral containment and oral clearance, no overt s/s of aspiration. Regular Comments: Trialed Ritz crackers and cheese w/ timely mastication, good oral clearance, no overt s/s of aspiration, no sensation of pharyngeal retention. Impact Impact on Safety Functioning: Risk for Aspiration and Risk for Inadequate Nutrition/Hydration Comments: Pt is undergoing radiation treatment for laryngeal cancer and is at increased risk for worsening swallow function, including decreased laryngeal elevation and increased aspiration risk. Pt is also at risk for dehydration and malnutrition from acute toxicities of radiation treatment. Recommendations Modified Barium Swallow/Cookie Swallow Recommended: Yes Swallowing Treatment: Yes Diet Texture Recommendations Solids: Regular (Level 7) Liquids: Thin (Level 0) Other: Small bites/sips, Slow rate, Sitting upright w/ po intake Results Swallowing Within Normal Limits: Yes CONTRACT PROCESSOR V Trigeminal Nerve V Trigeminal Nerve Response: Intact VII Facial Nerve VII Facial Nerve Result: Intact X Vagus Nerve X Vagus Nerve Result: Other - see comment below Comment:: Mild hoarseness. Tumor on the left vocal cord with extension onto the false cord and anterior commissure. XII Hypoglossal Nerve XII Hypoglossal Nerve Result: Intact Swallowing Performance Scale Swallowing Performance Scale Swallowing Performance Scale Result: 1 Normal Reference: Neuro-QoL instrument Radiation Oncology Patient FOIS Functional Oral Intake Scale Total oral diet with no restrictions: Level 7 Other Other EAT-10: -: Eating Assessment Tool (EAT-10) ??? Score = 0. Score of 3 or more indicates there may be a swallowing problem or dysphagia. For patients with head and neck cancer, researchers found a cut-off value of 19 to be helpful in detecting presence of post-swallow pharyngeal residue. Plan Plan Plan: While the patient is demonstrating overall normal swallow function at this time, will recommend dysphagia therapy to implement prophylactic oropharyngeal exercise program, ongoing assessment of swallow function and diet tolerance during treatment, and training in management of acute toxicities of radiation treatment that impact swallow function. The patient is at increased risk for dysphagia, aspiration, malnutrition, and dehydration during radiation treatment to treat laryngeal squamous cell carcinoma. Will plan for MBSS to determine the patient's baseline swallow function. He will be planned for repeat MBSS 3 months s/p completion of radiation treatment, followed by at least yearly MBSS in the first 5 years following radiation, as the patient's swallow is at ris (more content not included)... Normal [facility] Radiation Oncology Visiton 0 04-15-2025 Radiation Oncology Visit [facility] [address] [place] [address] OFFICE VISIT Date of Service: 04/15/25954 MR#: [id number] Acct: [id number] Name: DOMINIK VALENTINE Rep #: [id number] : 1960 From: Elizabeth Page BRANDT Age/Sex: 64/M [place] [facility] [place] [place] Status: Signed Intake Vital Signs 02/27/25 09:19 04/15/25 10:00 Height 5 ft 8 in 5 ft 8 in Weight: 167 lb 9 oz BMI 25.4 BP 159/76 H Blood Pressure Location Rt brachial Position Sitting Respiration 16 Pulse 43 L Pulse Source Monitor Temp 97.0 F L Temperature Source Temporal Artery Pulse Oximetry (%) 100 Oxygen Delivery Method room air Intake Visit Reasons: OTV Is patient in pain?: No Allergies amoxicillin (From Augmentin) Allergy (Verified 04/15/25 09:58) Other clavulanic acid (From Augmentin) Allergy (Verified 04/15/25 09:58) Other Medications ???Medication ???Instructions ???Recorded ???Confirmed ???Type metoprolol tartrate 50 mg tablet 25 mg PO BID 03/26/20 04/15/25 His tory acetaminophen 500 mg capsule 1,000 mg PO Q6H PRN pain 03/07/23 04/15/25 History PFSH PFS Medical History Dysphonia Carcinoma of intrinsic larynx Wears glasses Gastric reflux Arthritis Smoker Hoarseness History of colonic polyps Gastroesophageal reflux disease HTN (hypertension) Home Medications ???Medication ???Instructions ???Recorded ???Last Taken ???Type metoprolol tartrate 50 mg tablet 25 mg PO BID 03/26/20 01/26/25 His tory acetaminophen 500 mg capsule 1,000 mg PO Q6H PRN pain 03/07/23 Unknown History Allergy/AdvReac Type Severity Reaction Status Date / Time amoxicillin (From Augmentin) Allergy Other Verified 04/15/25 09:58 clavulanic acid (From Allergy Other Verified 04/15/25 09:58 Augmentin) Family History Brother Cancer sinus surgery Father Heart disease Surgical History History of tonsillectomy Malignant neoplasm determined by laryngeal biopsy History of laryngoscopy History of left shoulder replacement History of colonoscopy S/P left knee arthroscopy S/P correction of deviated nasal septum S/p tibial fracture S/P left knee surgery Social History household members: spouse current occupational status: retired Smoking Status: Current every day smoker tobacco type: cigarettes Tobacco: How many years used: 40 alcohol intake: never substance use type: marijuana caffeine: Yes Diagnosis: Dominik Valentine is a 64-year-old male diagnosed with clinical stage II (cT2 cN0 M0) 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 Plan: Plan was made complete definitive radiation therapy consisting of 6300 cGy delivered in 28 fractions to the larynx. Treatment Data: Treatment Site: larynx Current total dose/Total dose planned: 1575 cGy / 6300 cGy Fraction number: Chemotherapy: none Subjective: Pain: 0 / 10 Fatigue: none ENT: no mucositis. No odynophagia or dysphagia. Normal taste, no xerostomia Skin: no erythema, rash, desquamation Nutrition/weight: Weight stable. Regular diet by mouth. No supplements Rinses: doing baking soda/salt rises. doing green tea rinses Respiratory: no cough, SOB Objective: Weight: 04/08: 168 lbs, 04/15: 167 lbs 9 oz Physical Exam: Gen: NAD ENT: no mucositis. No thrush or visualized lesions in the oral cavity or oropharynx. Skin: no erythema, rash, desquamation. Assessment Plan Assessment/Plan (1) Laryngeal squamous cell carcinoma: PLAN: Plan Assessment: Tolerating treatment well overall.??? I reviewed and approved all treatment associated imaging. No treatment associated toxicities are noted at this time Plan: Continue treatment as planned.??? I have reviewed potential treatment associated toxicities as well as timing for resolution and management. Skin: Skin care reviewed, continue lotion at least bid Pain: none Rinses: recommended baking soda/salt rinses 4-6/d, green tea rinses 2-3/d Follow up next week or sooner if needed. Thank you for allowing me to participate in the management and care of your patient. If I may answer any questions in the interim, please do not hesitate to contact me at any time. 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 Normal [facility] Radiation Oncology Visiton 0 04-08-2025 Radiation Oncology Visit [facility] [address] [place], [place] [address] [address] OFFICE VISIT Date of Service: 04/08/25956 MR#: [id number] Acct: [id number] Name: DOMINIK VALENTINE Emma Rep #: [id number] : 1960 From: Elizabeth Sullivan DO Age/Sex: 64/M [place] [facility] [place] Status: Signed Intake Vital Signs 02/27/25 09:19 04/08/25 10:00 Height 5 ft 8 in 5 ft 8 in Weight: 168 lb BMI 25.5 BP 144/77 H Blood Pressure Location Lt brachial Position Sitting Respiration 18 Pulse 43 L Pulse Source Monitor Temp 97.5 F L Temperature Source Temporal Artery Pulse Oximetry (%) 99 Oxygen Delivery Method room air Intake Visit Reasons: OTV Is patient in pain?: No Allergies amoxicillin (From Augmentin) Allergy (Verified 04/08/25 10:00) Other clavulanic acid (From Augmentin) Allergy (Verified 04/08/25 10:00) Other Medications ???Medication ???Instructions ???Recorded ???Confirmed ???Type metoprolol tartrate 50 mg tablet 25 mg PO BID 03/26/20 04/08/25 His tory acetaminophen 500 mg capsule 1,000 mg PO Q6H PRN pain 03/07/23 04/08/25 History PFSH PFSH Medical History Dysphonia Carcinoma of intrinsic larynx Wears glasses Gastric reflux Arthritis Smoker Hoarseness History of colonic polyps Gastroesophageal reflux disease HTN (hypertension) Home Medications ???Medication ???Instructions ???Recorded ???Last Taken ???Type metoprolol tartrate 50 mg tablet 25 mg PO BID 03/26/20 01/26/25 His tory acetaminophen 500 mg capsule 1,000 mg PO Q6H PRN pain 03/07/23 Unknown History Allergy/AdvReac Type Severity Reaction Status Date / Time amoxicillin (From Augmentin) Allergy Other Verified 04/08/25 10:00 clavulanic acid (From Allergy Other Verified 04/08/25 10:00 Augmentin) Family History Brother Cancer sinus surgery Father Heart disease Surgical History History of tonsillectomy Malignant neoplasm determined by laryngeal biopsy History of laryngoscopy History of left shoulder replacement History of colonoscopy S/P left knee arthroscopy S/P correction of deviated nasal septum S/p tibial fracture S/P left knee surgery Social History household members: spouse current occupational status: retired Smoking Status: Current every day smoker tobacco type: cigarettes Tobacco: How many years used: 40 alcohol intake: never substance use type: marijuana caffeine: Yes Diagnosis: Dominik Valentine is a 64-year-old male diagnosed with clinical stage II (cT2 cN0 M0) 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 Plan: Plan was made complete definitive radiation therapy consisting of 6300 cGy delivered in 28 fractions to the larynx. Treatment Data: Treatment Site: larynx Current total dose/Total dose planned: 675 cGy / 6300 cGy Fraction number: Chemotherapy: none Subjective: Pain: 0 / 10 Fatigue: none ENT: no mucositis. No odynophagia or dysphagia. Normal taste, no xerostomia Skin: no erythema, rash, desquamation Nutrition/weight: Weight stable. Regular diet by mouth. No supplements Rinses: doing baking soda/salt rises. doing green tea rinses Respiratory: no cough, SOB Objective: Weight: 7: 168 lbs Physical Exam: Gen: NAD ENT: no mucositis. No thrush or visualized lesions in the oral cavity or oropharynx. Skin: no erythema, rash, desquamation. Assessment Plan Assessment/Plan (1) Laryngeal squamous cell carcinoma: PLAN: Plan Assessment: Tolerating treatment well overall.??? I reviewed and approved all treatment associated imaging. No treatment associated toxicities are noted at this time Plan: Continue treatment as planned.??? I have reviewed potential treatment associated toxicities as well as timing for resolution and management. Skin: Skin care reviewed, continue lotion at least bid Pain: none Rinses: recommended baking soda/salt rinses 4-6/d, green tea rinses 2-3/d Follow up next week or sooner if needed. Thank you for allowing me to participate in the management and care of your patient. If I may answer any questions in the interim, please do not hesitate to contact me at any time. 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 Normal [facility] Soft Tissue Neck WITH Contra ston 03-11-2025 Soft Tissue Neck WITH Contrast [facility] Imaging Services [address] [place] [address] Soft Tissue Neck WITH Contrast MR#: [id number] Acct: [id number] Name: DOMINIK VALENTINE Rep #: [id number] : 1960 M 64 From: Aly Escamilla MD PCP: Dr. Satya Dove MD Status: [facility] CLI Study: Soft Tissue Neck WITH Contrast Date of Exam: 0 03/11/25 Exam# [id number] Ordering Dr: Hari Keith MD PROCEDURE: SOFT TISSUE NECK WITH CONTRAST 03/11/2025 REASON FOR EXAM: LARYNGEAL CARCINOMA TECHNIQUE: CT of the soft tissues of the neck from the orbits to the upper mediastinum with intravenous contrast. CONTRAST: Isovue 370 VOLUME: 100 mL One or more dose reduction techniques were used (e.g., Automated exposure control, adjustment of the mA and/or kV according to patient size, use of iterative reconstruction technique). RADIATION DOSE SUMMARY: CTDlvol: 16.52 mGy DLP: 540.60 mGycm COMPARISON: CT soft tissue neck with IV contrast, 03/20/2023. FINDINGS: Airway: The oropharynx, nasopharynx and hypopharynx are normal. The epiglottis, aryepiglottic folds, pyriform sinuses, glottis and subglottic airway appear unremarkable. There are laryngeal cartilages are normal. Salivary glands: The major salivary glands are normal. Lymph nodes: There is no cervical lymphadenopathy. Thyroid: Normal. Vasculature: There is calcific vascular disease of both carotid bifurcations without significant stenosis. Orbits: There is bilateral optic nerve head drusen. Paranasal sinuses and mastoids: There is mucoperiosteal thickening of the frontal sinuses, the ethmoidal air cells, the maxillary sinuses and the sphenoid sinuses. The mastoid air cells and the external, middle and inner ears appear unremarkable. Lung apices: Normal. Upper mediastinum: There is calcific vascular disease of the aortic arch in the origin of the brachiocephalic artery, the left common carotid artery and the left subclavian artery, without significant stenosis. Bones: There is degenerative disc disease, C2-3 through C6-7 with narrowing of the disc spaces and marginal osteophytes. Visualized intraorbital contents: There is calcific vascular disease of the intracranial portion of both internal carotid arteries in the left vertebral artery. The brain parenchyma is unremarkable. CT/Soft Tissue Neck WITH Contrast IMPRESSION: 1. There are no findings to suggest laryngeal carcinoma. 2. Other findings as noted. Reading Location: [facility] CC: Dr. Satya Dove MD; Dr. Hari Keith MD Bag Shop Worker: Signed [facility] SURG PATH REQUESTon 03-10-20 Case Report [facility] Comment on above: Result Comment: Surg ical Pathology Report Case: [id number] Authorizing Provider: Ruby Vickers PA-C Collected: 03/10/2025 09:20 AM Ordering Location: [facility] Received: 03/10/2025 09:18 AM TOPMOST Pathologist: Kimberley Dixon MD Specimen: SURG PATH, Left true vocal cord neoplasm Performed By: #### S URGP #### [facility] (DEFAULT) [address] [address] Gross Description [facility] Comment on above: Result Comment: The following material(s) are received from [facility], [address] [place] [address] with an identifying Surgical Pathology Report: 1 H&E slide labeled [id number]. Outside pathology materials are returned in sixty (60) days under separate cover with our number recorded on them. Grosser for this case was: Angelse Vigil Performed By: #### S URGP #### [facility] (DEFAULT) [address] [place] [address] Microscopic Description A microscopic examination was performed. [facility] Comment on above: Performed By: #### S URGP #### [facility] (DEFAULT) [address] [address] Pathologic Diagnosis [facility] Comment on above: Result Comment: Outs norbert Slides: [id number] (01/26/25) Left true vocal cord, neoplasm, biopsy: Invasive squamous cell carcinoma. at 1407 EDT Performed By: #### S URGP #### [facility] (DEFAULT) [address] [address] Professional Interpretation Performed at: [facility] Comment on above: Result Comment: [facility] For Immediate Release to [facility]'s [facility] Yes [address] [place] [address] Performed By: #### S URGP #### [facility] (DEFAULT) [address] [place] [address] Radiation Oncology Visiton 0 02-27-2025 Radiation Oncology Visit [facility] [address] [place] [address] OFFICE VISIT Date of Service: 02/27/25900 MR#: [id number] Acct: [id number] Name: DOMINIK VALENTINE Rep #: [id number] : 1960 From: Elizabeth Page BRANDT Age/Sex: 64/M [place] [facility] Status: Signed Intake Vital Signs 01/26/25 08:08 02/27/25 09:15 02/27/25 09:19 Height 5 ft 8 in 5 ft 8 in 5 ft 8 in Weight: 161 lb 9 oz BMI 24.5 BP 160/77 H Blood Pressure Location Rt brachial Position Sitting Respiration 16 Pulse 56 L Pulse Source Monitor Temp 98.2 F Temperature Source Temporal Artery Pulse Oximetry (%) 100 Oxygen Delivery Method room air Intake Visit Reasons: LARYNGEAL CA Is patient in pain?: No Allergies amoxicillin (From Augmentin) Allergy (Verified 02/27/25 09:11) Other clavulanic acid (From Augmentin) Allergy (Verified 02/27/25 09:11) Other Medications ???Medication ???Instructions ???Recorded ???Confirmed ???Type metoprolol tartrate 50 mg tablet 25 mg PO BID 03/26/20 02/10/25 His tory acetaminophen 500 mg capsule 1,000 mg PO Q6H PRN pain 03/07/23 02/27/25 History Have you fallen in the past year?: No [facility] Medical History Dysphonia Carcinoma of intrinsic larynx Wears glasses Gastric reflux Arthritis Smoker Hoarseness History of colonic polyps Gastroesophageal reflux disease HTN (hypertension) Home Medications ???Medication ???Instructions ???Recorded ???Last Taken ???Type metoprolol tartrate 50 mg tablet 25 mg PO BID 03/26/20 01/26/25 His tory acetaminophen 500 mg capsule 1,000 mg PO Q6H PRN pain 03/07/23 Unknown History Allergy/AdvReac Type Severity Reaction Status Date / Time amoxicillin (From Augmentin) Allergy Other Verified 02/27/25 09:11 clavulanic acid (From Allergy Other Verified 02/27/25 09:11 Augmentin) Family History Brother Cancer sinus surgery Father Heart disease Surgical History History of tonsillectomy Malignant neoplasm determined by laryngeal biopsy History of laryngoscopy History of left shoulder replacement History of colonoscopy S/P left knee arthroscopy S/P correction of deviated nasal septum S/p tibial fracture S/P left knee surgery Social History (Updated 02/27/25 @ 09:12 by Zainab Bennett) household members: spouse current occupational status: retired Smoking Status: Current every day smoker tobacco type: cigarettes Tobacco: How many years used: 40 alcohol intake: never substance use type: marijuana caffeine: Yes Referring Provider: Hari Keith MD Diagnosis: Dominik Valentine is a 64-year-old male diagnosed with clinical stage II (cT2 cN0 M0) 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 History of Present Illness: 01/26/2025: Patient completed MicroDirect laryngoscopy with biopsy.??? On exam there is a left vocal cord mass localized to the true cord but extending into the ventricle, it extended to the anterior commissure, no involvement of the right vocal cord.??? Biopsy was performed and pathology was consistent with invasive squamous cell carcinoma. 02/17/2025: Patient completed PET scan.??? This demonstrated bilateral hypermetabolic activity noted in the larynx which may be physiologic but left greater than right with an SUV max of 5.3, consider direct visualization.??? No metastatic disease.??? No adenopathy. Radiation Treatment History: No prior history of ration therapy. No pacemaker. No diagnosis of radiosensitizing comorbidity. Interval History: Patient presents for initial consultation. He reports about a 2-year history of hoarseness which had worsened more this year and led to his workup. He denies dysphagia or odynophagia, coughing/choking with swallowing. He denies taste changes or dry mouth. He denies oral cavity pain, he has been seeing a dentist regularly, he has had a couple of teeth pulled in the past and some fillings but not much else. He is a current smoker of less than 1/2 pack/day, he does have about a 40-year smoking history at about 1 pack/day and has quit for over a year before, he is trying to quit now without any assistance. He denies otalgia. He has full arm range of motion without numbness or tingling or weakness. He denies headaches, vision changes, focal weakness/numbness, nausea/vomiting, bone pain. He does stay very active in his day life and has good energy. He completes LDLs without an difficulty and denies having other problems or concerns at this time. Review of Systems: A 12-poi (more content not included)... Normal [facility] PET/CT Tumor Base -Thigh Ini [facility] 02-17-2025 PET/CT Tumor Base -Thigh Init [facility] Imaging Services [address] [place] [address] PET/CT Tumor Base -Thigh Init MR#: [id number] Acct: [id number] Name: DOMINIK VALENTINE Rep #: [id number] : 1960 M 64 From: Gabriel Barber PCP: Dr. Satya Dove MD Status: [facility] Study: PET/CT Tumor Base -Thigh Init Date of Exam: Exam# [id number] Ordering Dr: Hari Keith MD PROCEDURE: PET/CT TUMOR BASE -THIGH INIT 02/17/2025 REASON FOR EXAM: 64 y/o M with THYROID TECHNIQUE: Following the intravenous administration of radionucleotide, image acquisition on a dedicated PET/CT unit was performed at one hour post injection. A preliminary CT study encompassing the Skull base, neck, chest, abdomen, pelvis, and proximal thighs was performed for purposes of attenuation correction and anatomic localization. The proximal thighs were also included. The patient's blood glucose level was 101 mg/dL (allowable range: 50-180 mg/dL). RADIOPHARMACEUTICAL: 13.52 mCi 18F-FDG (Fluorodeoxyglucose F18) IV was injected into he patient. RADIATION DOSE SUMMARY: Effective Dose: Approximately 7 mSv for a standard whole-body PET scan Organ Doses: Varies by organ, with higher doses typically to the bladder, liver, and brain COMPARISON: COMPARISON FROM CT, PET OR OTHER PERTINENT EXAMS: No priors available. FINDINGS: Physiologic uptake: There may be expected metabolic uptake within the brain, tongue and floor of the mouth and larynx/vocal cords, heart, sylvain (many normal individuals have hilar uptake in less than 3 nodes with mildly avid hilar nodes less than 2.7 SUV), liver and spleen, system, and GI tract and symmetric muscle uptake. FDG AVID AND NON-AVID LESIONS. Reported avid SUV values (g/mL*) are maximum SUV. Limited visualization of the paranasal sinuses shows extensive mucosal disease of the bilateral ethmoid and maxillary sinuses. No air-fluid level is noted. NECK: Bilateral hypermetabolic activity laryngeal area is seen, ifen-yihotie-yinr-right . Left-sided SUV max of 5.3. While this may simply represent muscle hyperactivity, cannot exclude the presence of malignancy; consider direct visualization. No abnormal uptake is seen in the region of the thyroid bed CHEST: Chest wall- There are no significant chest wall abnormalities. Axilla- There are no significant axillary abnormalities. Lung parenchyma- There are no significant lung parenchyma abnormalities. Mediastinum- There are no significant hilar or mediastinal adenopathy. Pleura- There are no significant pleural abnormalities. Moderate coronary artery calcification is seen. ABDOMEN: A right adrenal adenoma is noted. Stomach- No significant abnormalities. Liver- No significant abnormalities. Spleen- No significant abnormalities. Pancrease- No significant abnormalities. Kidneys- No significant abnormalities. Bowel- Normal bowel activity. Spine- No significant abnormalities. Prominent aortic calcification is noted; no evidence of abdominal aortic aneurysm. PELVIS: Bowel- Rrro-yx-zhfzaqpq sigmoid diverticulosis is noted. Normal physiologic bowel activity is identified. Masses- There are no pelvic masses. Bones- With the use of bone window settings, there are no osteolytic or osteoblastic lesions. There are no FDG avid lesions within the visualized portion of the axial skeleton. PET/PET/CT Tumor Base -Thigh Init IMPRESSION: FDG avid- 1. Bilateral hypermetabolic activity laryngeal area is seen, qyja-tlxgijd-sshm-right . While this may simply represent muscle hyperactivity, cannot exclude the presence of malignancy; consider direct visualization. 2. No metastatic focus is evident. Other: Guis-wv-bfcnzdoz sigmoid diverticulosis. Right adrenal adenoma. Moderate coronary artery calcification. Please note the low-dose CT scan was performed to facilitate PET image reconstruction and anatomic localization and does not replace a diagnostic CT. Any diagnostic CT requested and performed at the time of the PET will be reported separately. Reading Location: [place] [address] CC: Dr. Satya Dove MD; Dr. Hari Keith MD Bag Shop Worker: Signed Normal [facility] Positron emission tomography scan reportOrdered By: Gabriel Mckinney on 02-17-2025 PT Unspecified body region [facility] Imaging Services [address], [place] [address] PET/CT Tumor Base -Thigh Init MR#: [id number] Acct: [id number] Name: DOMINIK VALENTINE Rep #: [id number] : 1960 M 64 From: Carlos Alberto Mckinney MD PCP: Dr. Satya Dove MD Status: RE G CLI Study:PET/CT Tumor Base -Thigh Init Date of E xam: 02/17/25 Exam# [id number] Ordering Dr: Lamar Keith MD PROCEDURE: PET/CT TUMOR BASE -THIGH INIT 02/17/2025 REASON FOR EXAM: 64 y/o M with THYROID TECHNIQUE: Following the intravenous administration of radionucleotide, image acquisition on a dedicated PET/CT unit was performed at one hour post injection. A preliminary CT study encompassing the Skull base, neck, chest, abdomen, pelvis, and proximal thighs was performed for purposes of attenuation correction and anatomic localization. The proximal thighs were also included. The patient's blood glucose level was 101 mg/dL (allowable range: 50-180 mg/dL). RADIOPHARMACEUTICAL: 13.52 mCi 18F-FDG (Fluorodeoxyglucose F18) IV was injected into he patient. RADIATION DOSE SUMMARY: Effective Dose: Approximately 7 mSv for a standard whole-body PET scan Organ Doses: Varies by organ, with higher doses typically to the bladder, liver,and brain COMPARISON: COMPARISON FROM CT, PET OR OTHER PERTINENT EXAMS: No priors available. FINDINGS: Physiologic uptake: There may be expected metabolic uptake within the brain, tongue and floor of the mouth and larynx/vocal cords, heart, sylvain (many normal individuals have hilar uptake in less than 3 nodes with mildly avid hilar nodes less than 2.7 SUV), liver and spleen, system, and GI tract and symmetric muscle uptake. FDG AVID AND NON-AVID LESIONS. Reported avid SUV values (g/mL*) are maximum SUV. Limited visualization of the paranasal sinuses shows extensive mucosal disease of the bilateral ethmoid and maxillary sinuses. No air-fluid level is noted. NECK: Bilateral hypermetabolic activity laryngeal area is seen, hdso-danlbxd-lhem-right . Left-sided SUV max of 5.3. While this may simply represent muscle hyperactivity, cannot exclude the presence of malignancy; consider direct visualization. No abnormal uptake is seen in the region of the thyroid bed CHEST: Chest wall- There are no significant chest wall abnormalities. Axilla- There are no significant axillary abnormalities. Lung parenchyma- There are no significant lung parenchyma abnormalities. Mediastinum- There are no significant hilar or mediastinal adenopathy. Pleura- There are no significant pleural abnormalities. Moderate coronary artery calcification is seen. ABDOMEN: A right adrenal adenoma is noted. Stomach- No significant abnormalities. Liver- No significant abnormalities. Spleen- No significant abnormalities. Pancrease- No significant abnormalities. Kidneys- No significant abnormalities. Bowel- Normal bowel activity. Spine- No significant abnormalities. Prominent aortic calcification is noted; no evidence of abdominal aortic aneurysm. PELVIS: Bowel- Zhwu-bb-atflgnir sigmoid diverticulosis is noted. Normal physiologic bowel activity is identified. Masses- There are no pelvic masses. Bones- With the use of bone window settings, there are no osteolytic or osteoblastic lesions. There are no FDG avid lesions within the visualized portion of the axial skeleton. PET/PET/CT Tumor Base -Thigh Init IMPRESSION: FDG avid- 1. Bilateral hypermetabolic activity laryngeal area is seen, foev-jrmsnis-jkua-right . While this may simply represent muscle hyperactivity, cannot exclude the presence of malignancy; consider direct visualization. 2. No metastatic focus is evident. Other: Agso-dw-bwrchbkb sigmoid diverticulosis. Right adrenal adenoma. Moderate coronary artery calcification. Please note the low-dose CT scan was performed to facilitate PET image reconstruction and anatomic localization and does not replace a diagnostic CT. Any diagnostic CT requested and performed at the time of the PET will be reported separately. Reading Location: [place] [address] CC: Dr. Satya Dove MD; Dr. Hari Keith MD ~ Bag Shop Worker: Signed [facility] MR/POSTOP.[facility] 01-26-2025 MR/POSTOP.[facility] Medical Records Department [address] [place] [address] Anesthesia Postop Eval I 01/26/25 1040 MR#: [id number] Acct: [id number] Name: DOMINIK VALENTNIE Rep #: [id number] : 1960 64 From: Valarie Ayers TECHNICAL COORDINATOR PCP: Dr. Satya Dove MD Status:[facility] Y Race: C Location: [place] [address] Anesthesia: Postop Eval I Current Vital Signs Temperature: 97.1 F Pulse Rate: 61 Blood Pressure: 143/71 Respiratory Rate: 18 Pulse Ox: 97 Oxygen Delivery Method: Room Air Assessment Airway patent: Yes Spontaneous unlabored respirations: Yes Mental status: Awake nausea: No Vomiting: No Anesthesia Complication: No Fluid Hydration Crystalloid volume administer (ml): 600 Total IV fluid infused: 600 Progress Note Anesthesia document: Postop Eval 1 completed: Yes 01/26/25 1041 Date Valarie DeForeest TECHNICAL COORDINATOR Cosigner Signature: Date CC: Signed Normal [facility] MR/[id number] 01-26-2025 MR/POSTOPAN2 [facility] Medical Records Department [address] [place] [address] Anesthesia Postop Eval II 01/26/25 1233 MR#: [id number] Acct: [id number] Name: KWESI VALENTINEMIESHA Carter Rep #: [id number] : 1960 64 From: Abner Rodrigues MD PCP: Dr. Satya Dove MD Status:DEP [facility] Y Race: C Location: [facility] Anesthesia Postop Eval I Sum Postop Eval Completion status Anesthesia document: Postop Eval 1 completed: Yes Anesthesia Postop Eval I Summary Anesthesia Postop Eval I Summary: Anesthesia Postop Eval I: Assessment Summary Airway patent Yes 01/26/25 10:41 TECHNICAL COORDINATOR.JDEF Spontaneous unlabored Yes 01/26/25 10:41 TECHNICAL COORDINATOR.JDEF respirations Mental status Awake 01/26/25 10:41 TECHNICAL COORDINATOR.JDEF nausea No 01/26/25 10:41 TECHNICAL COORDINATOR.JDEF Vomiting No 01/26/25 10:41 TECHNICAL COORDINATOR.JDEF Anesthesia Postop Eval I: Fluid Summary Crystalloid volume administer 600 01/26/25 10:41 TECHNICAL COORDINATOR.JDEF (ml) Colloids volume administered ( ml) Blood Product volume administered (ml) Total IV fluid infused 600 01/26/25 10:41 TECHNICAL COORDINATOR.JDEF Anesthesia Postop Eval I: Summary Notes Anesthesia Complication No 01/26/25 10:41 TECHNICAL COORDINATOR.JDEF Anesthesia Complication Comment: Post-operative progress note Anesthesia: Postop Eval II Evaluation Mental status: Awake Pain Level: 0 nausea: No Vomiting: No 01/26/25 1233 Date Abner Rodrigues MD Cosigner Signature: Date CC: Signed Normal [facility] Operative Reporton 5 Operative Report [facility] Medical Records Department [address] [facility] [place] [address] Operative Report 01/26/25 1024 MR#: [id number] Acct: [id number] Name: DOMINIK VALENTINE Rep #: [id number] : 1960 64 From: Hari Keith MD PCP: Dr. Satya Dove MD Status:REG [facility] Location: [place] [address] Operative Report (Standard) Operative Information Date of Procedure: 01/26/25 Pre-Operative Diagnosis: hoarseness right vocal cord mass Post-Operative Diagnosis: same Surgery/Procedure Performed: Microdirect laryngoscopy with biopsy infantry unit leader: No Type of Anesthesia: General RN Documented Start/Stop Times: Operation Date: 01/26/25 09:15 Case Time Into Pre-Op 01/26/25 07:53 Out of Pre-Op 01/26/25 09:33 Anesthesia Start 01/26/25 09:37 Into Room 01/26/25 09:37 Procedure Start 01/26/25 09:55 Procedure Start Time: 09:55 Procedure Stop Time: 10:22 Select all DRAINS/GRAFTS/IMPLANTS that apply: None Estimated Blood Loss: minimal Specimen collected: Yes Description of specimen(s) removed: left true vocal cord neoplasm Description of surgery: The patient was taken to the operating room for . He was placed in the supine position on the operating room table. He was given sufficient general endotracheal anesthesia. The table was turned 90 degrees in a clockwise fashion. The patient was draped sterilely. A gum guard was placed on the upper dentition. A Dedo laryngoscope inserted the patient's mouth and then into the oropharynx. The epiglottis and base of tongue were normal. Piriform sinuses were normal. The larynx was exposed. He was then placed in suspension on the [place] stand. The operating microscope was used throughout the rest of the case. There was a left vocal cord mass that was localized to the true cord but extended into the ventricle. It extended to the anterior commissure. There was no involvement of the right vocal cord. I grasped a portion of the neoplasm with cup forceps. I then cut this from the surrounding tissue and sent this for permanent section. Hemostasis was achieved with topical adrenaline on pledgets. Once hemostasis was achieved all instrumentation was removed. Patient was turned back to regular anesthesia position and awoken. he was brought to the recovery room in stable condition. Blood loss minimal, replacement none. Sponge, needle, and instrument count correct at the end of the procedure. Surgical Findings: right vocal cord neoplsm Complications Complications: No 01/26/25 1028 Cosigner Signature (if applicable): CC: Dr. Satya Dove MD; Dr. Hari Keith MD Signed Normal [facility] Surgery Specimen Level Dell 01-26-2025 Surgery Specimen Level IV Patient Age/Sex Location Account Attending Physician DOMINIK VALENTINE 64/M [facility] [id number] Dr. Hari Keith MD Specimen: [id number] Received: 01/26/25120 Status: ENRIQUE Yola Num: [id number] Spec Type: VOCAL CORD Subm Dr: Dr. Hari Keith MD HEADER OPERATION: Micro direct laryngoscopy with biopsy of vocal cords PRE-OP DIAGNOSIS: Dysphonia TISSUE SUBMITTED: A- Left true vocal cord neoplasm MICROSCOPIC DIAGNOSIS A. Left true vocal cord, neoplasm, biopsy: * Invasive squamous cell carcinoma MICROSCOPIC DESCRIPTION Slides are reviewed. GROSS DESCRIPTION A. Received in formalin in a container labeled with the patient's name, date of , and left true vocal cord neoplasm are multiple red-king fragments of soft tissue measuring 0.7 x 0.6 x 0.3 cm in aggregate. Submitted in toto in A1. B 01/27/2025 CPT:64625 ADDENDUM Addendum 1 Entered: 03/10/25-0600 This addendum is added to incorporate an outside pathology consultation report. The case was examined at [facility] by Dr. Dixon (#[id number]) and the following diagnosis was rendered. A. Left true vocal cord, neoplasm, biopsy: Invasive squamous cell carcinoma. Please see complete above mentioned consultation report in EMR Patient Age/Sex Location Account Attending Physician DOMINIK VALENTINE/M [facility] [id number] Dr. Hari Keith MD ADDENDUM (Continued) Addendum Signed (signature on file) Dr. Maylin Wallace MD 03/10/25 1617 Patient Age/Sex Location Account Attending Physician DOMINIK VALENTINE 64/M [facility] [id number] Dr. Hari Keith MD Signed (signature on file) Dr. Belle Larsen DO 01/27/25 1153 Normal [facility] Comment on above: Performed By: #### P SUIV #### [facility] [address] [place], [place], [id number] Anion gap in Serum or Plasma Ordered By: Hari Keith on 01-22-2025 Anion gap [Moles/Vol] 10 mmol/L - [facility] BUN/creatinine ratioOrdered By: Hari Keith on 01-22-2025 Urea nitrogen/Creatinine [Mass ratio] 12.6 mg/mg - [facility] Basic Metabolic Profile (BMP )on 01-22-2025 BUN/CRE 12.6 RATIO Normal - [facility] Comment on above: Performed By: #### L 500.2500, L100.0500 #### [facility] [address] [place], [place], [id number] Calcium [Mass/Vol] 9.3 mg/dL Normal 7.6-11.0 [facility] Comment on above: Performed By: #### L 500.2500, L100.0500 #### [facility] [address] [place], [place], [id number] Chloride [Moles/Vol] 103 mmol/L Normal 98-108 [facility] Comment on above: Performed By: #### L 500.2500, L100.0500 #### [facility] [address] [place], [address] CO2 [Moles/Vol] 25.3 mmol/L Normal 21.0-32.0 [facility] Comment on above: Performed By: #### L 500.2500, L100.0500 #### [facility] [address] [place], [address] Creatinine [Mass/Vol] 0.83 mg/dL Normal 0.70-1.20 [facility] Comment on above: Performed By: #### L 500.2500, L100.0500 #### [facility] [address] [place], [address] GAP 10 Normal 5-15 [facility] Comment on above: Performed By: #### L 500.2500, L100.0500 #### [facility] [address] [place], [address] GFR/1.73 sq M.predicted among non-blacks MDRD (S/P/Bld) [Vol rate/Area] 98 mL/min/{1.73_m2} Normal >60 [facility] Comment on above: Result Comment: mL/m in/1.73m2 CKD-EPI Creatinine Equation (2020) Performed By: #### L 500.2500, L100.0500 #### [facility] [address] [place], [address] Glucose [Mass/Vol] 109 mg/dL High 70-99 [facility] Comment on above: Performed By: #### L 500.2500, L100.0500 #### [facility] [address] [place], [address] Potassium [Moles/Vol] 4.7 mmol/L Normal 3.3-5.1 [facility] Comment on above: Performed By: #### L 500.2500, L100.0500 #### [facility] [address] [place], [address] Sodium [Moles/Vol] 138 mmol/L Normal 133-145 [facility] Comment on above: Performed By: #### L 500.2500, L100.0500 #### [facility] [address] [place], [address] Urea nitrogen [Mass/Vol] 11 mg/dL Normal 4-19 [facility] Comment on above: Performed By: #### L 500.2500, L100.0500 #### [facility] [address] [place], [address] CBC-Complete Blood Cnt No Di ffon 01-22-2025 Erythrocyte distribution width (RBC) [Ratio] 14.2 % Normal 11.6-14.6 [facility] Comment on above: Performed By: #### L 500.2500, L100.0500 #### [facility] [address] [place], [address] Hematocrit (Bld) [Volume fraction] 46.6 % Normal 40-54 [facility] Comment on above: Performed By: #### L 500.2500, L100.0500 #### [facility] [address] [place], [address] Hemoglobin (Bld) [Mass/Vol] 15.3 g/dL Normal 13.0-16.5 [facility] Comment on above: Performed By: #### L 500.2500, L100.0500 #### [facility] [address] [place], [address] MCH (RBC) [Entitic mass] 28.5 pg Normal 27.0-32.0 [facility] Comment on above: Performed By: #### L 500.2500, L100.0500 #### [facility] [address] [place], [address] MCHC (RBC) [Mass/Vol] 32.8 g/dL Normal 32-36 [facility] Comment on above: Performed By: #### L 500.2500, L100.0500 #### [facility] [address] [place], [address] MCV (RBC) [Entitic vol] 86.9 fL Normal 80-94 [facility] Comment on above: Performed By: #### L 500.2500, L100.0500 #### [facility] [address] [place], [address] Platelet mean volume (Bld) [Entitic vol] 9.7 fL Normal 6.2-12.0 [facility] Comment on above: Performed By: #### L 500.2500, L100.0500 #### [facility] [address] [place], [address] Platelets (Bld) [#/Vol] 254 10*3/uL Normal 150-450 [facility] Comment on above: Performed By: #### L 500.2500, L100.0500 #### [facility] [address] [place], [address] RBC (Bld) [#/Vol] 5.36 10*6/uL Normal 4.6-6.2 [facility] Comment on above: Performed By: #### L 500.2500, L100.0500 #### [facility] [address] [place], [address] RDW SD 45.6 fl High 35.1-43.9 [facility] Comment on above: Performed By: #### L 500.2500, L100.0500 #### [facility] [address] [place], [address] WBC (Bld) [#/Vol] 9.1 10*3/uL Normal 4.4-11.0 [facility] Comment on above: Performed By: #### L 500.2500, L100.0500 #### [facility] [address] [place], [place], [id number] Carbon dioxide, total [Moles /volume] in Central venous bloodOrdered By: Hari Keith on 01-22-2025 CO2 [Moles/Vol] 25.3 mmol/L 21.0-32.0 [facility] Chloride assayOrdered By: Luigi Keith on 01-22-2025 Chloride [Moles/Vol] 103 mmol/L 98-108 [facility] Erythrocyte distribution wid th (RBC) [Ratio]Ordered By: Hari Keith on 01-22-2025 Erythrocyte distribution width (RBC) [Entitic vol] 45.6 fL High 35.1-43.9 [facility] Erythrocyte distribution wid th ratioOrdered By: Hari Keith on 01-22-2025 Erythrocyte distribution width (RBC) [Ratio] 14.2 % 11.6-14.6 [facility] Erythrocyte distribution wid th standard deviationOrdered By: Hari Keith on 01-22-2025 Erythrocyte distribution width (RBC) [Ratio] 45.6 fl High 35.1-43.9 [facility] GFR/1.73 sq M.predicted vidhya g non-blacks MDRD (S/P/Bld) [Vol rate/Area]Ordered By: Hari Keith on 01-22-2025 Estimated GFR (MDRD) Non-Af Amer 98 >60 [facility] Comment on above: mL/min/1.73m2 CKD-EP I Creatinine Equation (2020) Glomerular filtration rate ( GFR) estimation/1.73 sq m using serum, plasma, or whole bOrdered By: Hari Keith on 01-22-2025 GFR/1.73 sq M.predicted among non-blacks MDRD (S/P/Bld) [Vol rate/Area] 98 mL/min/{1.73_m2} >60 [facility] Comment on above: mL/min/1.73m2 CKD-EP I Creatinine Equation (2020) Hematocrit Auto (Bld) [Volum e fraction]Ordered By: Hari Keith on 01-22-2025 Hematocrit (Bld) [Volume fraction] 46.6 % 40-54 [facility] Hemoglobin measurementOrdere d By: Hari Keith on 01-22-2025 Hemoglobin (Bld) [Mass/Vol] 15.3 g/dL 13.0-16.5 [facility] MCV (mean corpuscular volume ) determinationOrdered By: Hari Keith on 01-22-2025 MCV (RBC) [Entitic vol] 86.9 fL 80-94 [facility] Mean corpuscular hemoglobin (MCH) determinationOrdered By: Hari Keith on 01-22-2025 MCH (RBC) [Entitic mass] 28.5 pg 27.0-32.0 [facility] Mean corpuscular hemoglobin concentration (MCHC) determinationOrdered By: Hari Keith on 01-22-2025 MCHC (RBC) [Mass/Vol] 32.8 g/dL 32-36 [facility] Mean platelet volume determi nationOrdered By: Hari Keith on 01-22-2025 Platelet mean volume (Bld) [Entitic vol] 9.7 fL 6.2-12.0 [facility] Platelet countOrdered By: Luigi Keith on 01-22-2025 Platelets (Bld) [#/Vol] 254 10*3/uL 150-450 [facility] Potassium (Unsp spec) [Mass/ Vol]Ordered By: Hari Keith on 01-22-2025 Potassium [Moles/Vol] 4.7 mmol/L 3.3-5.1 [facility] Potassium measurement (mass/ volume)Ordered By: Hari Keith on 01-22-2025 Potassium (Unsp spec) [Mass/Vol] 4.7 mmol/L 3.3-5.1 [facility] RBC Auto (Bld) [#/Vol]Ordere d By: Hari Keith on 01-22-2025 RBC (Bld) [#/Vol] 5.36 10*6/uL 4.6-6.2 [facility] Serum creatinine measurement (mass/volume)Ordered By: Hari Keith on 01-22-2025 Creatinine [Mass/Vol] 0.83 mg/dL 0.70-1.20 [facility] Serum glucose measurement (m ass/volume)Ordered By: Hari Keith on 01-22-2025 Glucose [Mass/Vol] 109 mg/dL High 70-99 [facility] Serum or plasma calcium eva urement (mass/volume)Ordered By: Hari Keith on 01-22-2025 Calcium [Mass/Vol] 9.3 mg/dL 7.6-11.0 [facility] Serum or plasma urea nitroge n measurement (mass/volume)Ordered By: Hari Keith on 01-22-2025 Urea nitrogen [Mass/Vol] 11 mg/dL 4-19 [facility] Sodium levelOrdered By: Ami Keith on 01-22-2025 Sodium [Moles/Vol] 138 mmol/L 133-145 [facility] White blood cell (WBC) count Ordered By: Hrai Keith on 01-22-2025 WBC (Bld) [#/Vol] 9.1 10*3/uL 4.4-11.0 [facility] 12 Lead EKGon 06-20-2024 12 Lead EKG [facility] [address] [place] [address] 12 Lead EKG 06/20/24 1124 MR#: [id number] Acct: [id number] Name: DOMINIK VALENTINE Rep #: [id number] : 1960 63 From: Alli Cavazos MD Attending Dr: Status: DEP ER Ordering Dr: Rush Wynn MD Date: 06/20/24 Location: ED Sex: M C Admitted: Test Reason : BURNING CHEST Blood Pressure : / mmHG Vent. Rate : 046 BPM Atrial Rate : 046 BPM P-R Int : 146 ms QRS Dur : 088 ms QT Int : 468 ms P-R-T Axes : 073 058 062 degrees QTc Int : 409 ms Sinus bradycardia Otherwise normal ECG Confirmed by Alli Cavazos ([id number]), editorial specialist CRISS GARCIA ([id number]) on 06/23/2024 11:24:48 AM Referred By: NGA/ANDREA Confirmed By:Alli Cavazos 06/23/24 1124 Date Alli Cavazos MD CC: Dr. Satya Dove MD; Dr. Rush Wynn MD Signed Normal [facility] Basic Metabolic Profile (BMP )on 06-20-2024 BUN/CRE 14.8 RATIO Normal 10-20 [facility] Comment on above: Order Comment: 1 Y Performed By: #### L 500.2500, L100.0100, L501.5425 #### [facility] [address] [place], [address] CA,Total 9.1 mg/dL Normal 8.5-10.1 [facility] Comment on above: Order Comment: 1 Y Performed By: #### L 500.2500, L100.0100, L501.5425 #### [facility] [address] [place], [address] Chloride [Moles/Vol] 107 mmol/L Normal 98-107 [facility] Comment on above: Order Comment: 1 Y Performed By: #### L 500.2500, L100.0100, L501.5425 #### [facility] [address] [place], [address] CO2 [Moles/Vol] 29.0 mmol/L Normal 21.0-32.0 [facility] Comment on above: Order Comment: 1 Y Performed By: #### L 500.2500, L100.0100, L501.5425 #### [facility] [address] [place], [address] Creatinine [Mass/Vol] 0.88 mg/dL Normal 0.70-1.30 [facility] Comment on above: Order Comment: 1 Y Result Comment: The validity of the calculated GFR GFRAA in patients over 70 years has not been determined. Clinical correlation is essential. Performed By: #### L 500.2500, L100.0100, L501.5425 #### [facility] [address] [place], [address] ECRCL 84.20 ml/min Normal [facility] Comment on above: Order Comment: 1 Y Performed By: #### L 500.2500, L100.0100, L501.5425 #### [facility] [address] [place], [address] EST GFR - AA 113 mL/min Normal >60 [facility] Comment on above: Order Comment: 1 Y Result Comment: Afri can [place] GFR Calc Performed By: #### L 500.2500, L100.0100, L501.5425 #### [facility] [address] [place], [address] GAP 3 Low 5-15 [facility] Comment on above: Order Comment: 1 Y Performed By: #### L 500.2500, L100.0100, L501.5425 #### [facility] [address] [place], [address] GFR/1.73 sq M.predicted among non-blacks MDRD (S/P/Bld) [Vol rate/Area] 94 mL/min/{1.73_m2} Normal >60 [facility] Comment on above: Order Comment: 1 Y Result Comment: Non- GFR Calc Performed By: #### L 500.2500, L100.0100, L501.5425 #### [facility] [address] [place], [address] Glucose [Mass/Vol] 113 mg/dL High 74-106 [facility] Comment on above: Order Comment: 1 Y Result Comment: Fast ing Glucose result from 100 to 125 mg/dL suggests IMPAIRED HOMEOSTASIS per A.D.A. criteria. Performed By: #### L 500.2500, L100.0100, L501.5425 #### [facility] [address] [place], [address] Potassium [Moles/Vol] 4.3 mmol/L Normal 3.5-5.1 [facility] Comment on above: Order Comment: 1 Y Performed By: #### L 500.2500, L100.0100, L501.5425 #### [facility] [address] [place], [address] Sodium [Moles/Vol] 139 mmol/L Normal 136-145 [facility] Comment on above: Order Comment: 1 Y Performed By: #### L 500.2500, L100.0100, L501.5425 #### [facility] [address] [place], [address] Urea nitrogen [Mass/Vol] 13 mg/dL Normal 7-18 [facility] Comment on above: Order Comment: 1 Y Performed By: #### L 500.2500, L100.0100, L501.5425 #### [facility] [address] [place], [address] CBC W/Diff, Automatedon 09-10 10-2023 Absolute Lymph 3.30 X10 3/uL Normal 0.83-4.51 [facility] Comment on above: Performed By: #### L 500.2500, L100.0100, L501.5425 #### [facility] [address] [place], [address] Absolute Neut 6.3 X10 3/uL Normal 2.0-7.7 [facility] Comment on above: Performed By: #### L 500.2500, L100.0100, L501.5425 #### [facility] [address] [place], [address] Basophils/100 WBC (Bld) 0.8 % Normal 0-1 [facility] Comment on above: Performed By: #### L 500.2500, L100.0100, L501.5425 #### [facility] [address] [place], [address] Eosinophils/100 WBC (Bld) 1.9 % Normal 0-5 [facility] Comment on above: Performed By: #### L 500.2500, L100.0100, L501.5425 #### [facility] [address] [place], [address] Erythrocyte distribution width (RBC) [Ratio] 13.8 % Normal 11.6-14.6 [facility] Comment on above: Performed By: #### L 500.2500, L100.0100, L501.5425 #### [facility] [address] [place], [address] Hematocrit (Bld) [Volume fraction] 46.0 % Normal 40-54 [facility] Comment on above: Performed By: #### L 500.2500, L100.0100, L501.5425 #### [facility] [address] [place], [address] Hemoglobin (Bld) [Mass/Vol] 14.6 g/dL Normal 13.0-16.5 [facility] Comment on above: Performed By: #### L 500.2500, L100.0100, L501.5425 #### [facility] [address] [place], [address] IG% 0.600 Normal 0.0-0.9 [facility] Comment on above: Result Comment: IG% - Immature Granulocytes (promyelocytes, myelocytes and metamyelocytes) > 1% indicates that a LEFT SHIFT is Present. Performed By: #### L 500.2500, L100.0100, L501.5425 #### [facility] [address] [place], [address] Lymphocytes/100 WBC (Bld) 30.1 % Normal 19-41 [facility] Comment on above: Performed By: #### L 500.2500, L100.0100, L501.5425 #### [facility] [address] [place], [address] MCH (RBC) [Entitic mass] 27.9 pg Normal 27.0-32.0 [facility] Comment on above: Performed By: #### L 500.2500, L100.0100, L501.5425 #### [facility] [address] [place], [address] MCHC (RBC) [Mass/Vol] 31.7 g/dL Low 32-36 [facility] Comment on above: Performed By: #### L 500.2500, L100.0100, L501.5425 #### [facility] [address] [place], [address] MCV (RBC) [Entitic vol] 87.8 fL Normal 80-94 [facility] Comment on above: Performed By: #### L 500.2500, L100.0100, L501.5425 #### [facility] [address] [place], [address] Monocytes/100 WBC (Bld) 9.1 % Normal 0-10 [facility] Comment on above: Performed By: #### L 500.2500, L100.0100, L501.5425 #### [facility] [address] [place], [address] Neutrophils/100 WBC (Bld) 57.5 % Normal 47-70 [facility] Comment on above: Performed By: #### L 500.2500, L100.0100, L501.5425 #### [facility] [address] [place], [address] Nucleated RBC (Bld) [#/Vol] 0 10*3/uL Normal 0-5 [facility] Comment on above: Performed By: #### L 500.2500, L100.0100, L501.5425 #### [facility] [address] [place], [address] Platelet mean volume (Bld) [Entitic vol] 9.2 fL Normal 6.2-12.0 [facility] Comment on above: Performed By: #### L 500.2500, L100.0100, L501.5425 #### [facility] [address] [place], [address] Platelets (Bld) [#/Vol] 247 10*3/uL Normal 150-450 [facility] Comment on above: Performed By: #### L 500.2500, L100.0100, L501.5425 #### [facility] [address] [place], [address] RBC (Bld) [#/Vol] 5.24 10*6/uL Normal 4.6-6.2 [facility] Comment on above: Performed By: #### L 500.2500, L100.0100, L501.5425 #### [facility] [address], [address] RDW SD 44.3 fl High 35.1-43.9 [facility] Comment on above: Performed By: #### L 500.2500, L100.0100, L501.5425 #### [facility] [address] [place], [address] WBC (Bld) [#/Vol] 11.0 10*3/uL Normal 4.4-11.0 [facility] Comment on above: Performed By: #### L 500.2500, L100.0100, L501.5425 #### [facility] [address] [place], [address] Chest 1 View (Portable)on Chest 1 View (Portable) [facility] Imaging Services [address] [place] [address] Chest 1 View (Portable) MR#: [id number] Acct: [id number] Name: DOMINIK VALENTINE Rep #: [id number] : 1960 M 63 From: Isaac Huntley MD PCP: Dr. Satya Dove MD Status: PRE ER Study: Chest 1 View (Portable) Date of Exam: 06/20/24 Exam# [id number] Ordering [place]: [place] [id number] STUDY: X-RAY CHEST REASON FOR EXAM: Male, 63 years old. Chest pain. TECHNIQUE: Single frontal view of the chest on 2 images. COMPARISON: February 14, 2013 FINDINGS: Stable hyperinflation. There is no demonstrated pleural abnormality. Normal size heart. Normal mediastinum and sylvain. Normal visualized pulmonary arteries. Normal visualized aortic arch and descending thoracic aorta. No abnormality of the visualized soft tissue structures of the upper abdomen. RAD/Chest 1 View (Portable) IMPRESSION: Hyperinflation with no acute finding. Electronically Signed: Isaac Huntley MD at 11:53 EDT , CC: Dr. Satya Dove MD; Dr. 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 Satya Dove MD Status:DEP ER Location: ED HPI History of Present Illness Chief Complaint: Chest Pain Detail of Chief Complaint: Transient left-sided burning chest pain 4 weeks ago, 2 weeks ago and this m Informant: patient Onset/Context/Timing Onset: - (HPI narrative) Activity at onset: sudden Timing: Intermittent and Lasts (Seconds) Quality: Positive for Burning Location: Left Parasternal Current Severity: Gone Maximum Severity: Moderate Worsened By: Nothing Relieved By: Nothing Associated Symptoms: Negative for Nausea, Vomiting, Diaphoresis, Dyspnea, Cough, Fever, Lightheadedness, Acid Reflux or Palpitations Narrative Narrative: Patient is a 7-year-old male who presents with transient burning left-sided chest pain that occurred on 3 different occasions. Prior Similar Symptoms: No CVD Risk Factors: Positive for Hypertension; Negative for Diabetes, Hypercholesterolemia, Family History 1' PE Risk Factors: Positive for Recent Travel/Surgery; Negative for Recent Immobilization, Prior DVT or PE, Cancer or OCP + Smoking + >/=35 TAD Risk Factors: Positive for Hypertension; Negative for Marfan's Syndrome or [facility] History [facility] Medical History Wears glasses Gastric reflux Arthritis Smoker Hoarseness History of colonic polyps Cough Fever URI (upper respiratory infection) Head congestion Gastroesophageal reflux disease HTN (hypertension) Home Medications ???Medication ???Instructions ???Recorded ???Last Taken ???Type metoprolol tartrate 50 mg tablet 50 mg PO BID 03/26/20 04/17/23 History acetaminophen 500 mg capsule 1,000 mg PO BID PRN pain 03/07/23 Unknown History multivitamin 1 tab PO DAILY 03/07/23 Unknown History lactobacillus combination no.4 3 6,000 mmu cells PO DAILY 04/13/23 Unknown History billion cell capsule (Probiotic) omeprazole 20 mg capsule,delayed 20 mg PO DAILY 04/13/23 04/17/23 History release psyllium husk 0.4 gram capsule 0.4 g PO DAILY 04/13/23 Unknown History (Metamucil) Allergy/AdvReac Type Severity Reaction Status Date / Time amoxicillin (From Augmentin) Allergy Other Verified 06/20/24 11:19 clavulanic acid (From Allergy Other Verified 06/20/24 11:19 Augmentin) Family History Brother Cancer sinus surgery Father Heart disease Surgical History History of left shoulder replacement History of colonoscopy S/P left knee arthroscopy S/P correction of deviated nasal septum S/p tibial fracture S/P left knee surgery Social History household members: spouse current occupational status: retired Smoking Status: Current every day smoker tobacco type: cigarettes alcohol intake: never ROS ROS ED Constitutional Constitutional ED: Denies chills, fever(s), subjective or sweats Eyes Eyes: Reports none ENT ENT ED: Denies ear pain, rhinorrhea or sore throat Cardiovascular Cardiovascular: Reports as per HPI; Denies orthopnea or paroxysmal nocturnal dyspnea Respiratory/Chest Respiratory/Chest: Denies cough, dyspnea, dyspnea on exertion, orthopnea or paroxysmal nocturnal dyspnea Gastrointestinal Gastrointestinal: Denies abdominal pain, nausea or vomiting Genitourinary Genitourinary ED: Denies dysuria, hematuria or urinary frequency Musculoskeletal Musculoskeletal: Denies arthralgias, back pain or neck pain Integumentary Denies abscess or rash Neurologic Neurologic: Denies headache(s), paresthesias or weakness Psychiatric Psychiatric: Denies anxiety, depression or suicidal ideation Endocrine Endocrinology: Denies cold intolerance or heat intolerance Hematologic/Lymphatic Hematologic/Lymphatic: Denies easy bleeding or easy bruising EXAM Physical Exam Const Vital Signs: 06/20/24 11:17 06/20/24 11:29 06/20/24 12:17 Temperature 97.8 F Temperature Source Temporal Pulse Rate 48 L 87 Respiratory Rate 16 18 Blood Pressure 166/85 H 156/70 H Blood Pressure Mean 112 98 Pulse Ox 98 99 Oxygen Delivery Method Room Air 06/20/24 12:43 06/20/24 12:45 06/20/24 13:00 Temperature Temperature Source Pulse Rate 49 L 48 L 47 L Respiratory Rate 16 19 H 23 H Blood Pressure 167/71 H 156/70 H 134/73 H Blood Pressure Mean 100 95 91 Pulse Ox Oxygen Delivery Method 06/20/24 14:00 06/20/24 15:00 Temperature Temperature Source Pulse Rate 48 L 48 L Respi (more content not included)... Normal [facility] L501.4020on 06-20-2024 TROPONIN-I HS 7 pg/mL Normal 3.0-78.0 [facility] Comment on above: Result Comment: Donna lepe Note: New Test Units and Gender Specific Reference Ranges. For more information see Policy Stat Procedure [place] High Sensitivity Troponin (TNIH) and attachments. Performed By: #### L 501.4020 #### [facility] [address] [place], [address] [id number] 06-20-2024 TROPONIN-I HS 5 pg/mL Normal 3.0-78.0 [facility] Comment on above: Order Comment: 1 Y Result Comment: Donna lepe Note: New Test Units and Gender Specific Reference Ranges. For more information see Policy Stat Procedure [place] High Sensitivity Troponin (TNIH) and attachments. Performed By: #### L 500.2500, L100.0100, L501.5425 #### [facility] [address], [address] CNOVon 04-04-2024 CNOV Office Visit (NUMBHT ) DOMINIK VALENTINE ([id number]) 1960 M Date Time Provider Department 04/04/24 1:00 PM SUDHEER PAEZ During your visit today, we recorded the following information about you: Pulse Blood pressure 63/minute 163/73 Sudheer Paez DO 04/04/2024 2:05 PM Signed [facility] General Neurology New Patient Evaluation Consulting Provider: SELF Individuals who were included in, or assisted with the encounter were: Dominik Paez DO Chief Complaint/Issues: Dominik Valentine is a 63 year old male seen in the [facility] for General Neurology for: Forgetting things, personality change, memory concerns. Emailed Margo 03/24/2024. She replied on 03/24/2024 saying .I contacted the PCP they will fax over the last office note to us. 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 No abnormal contrast-enhancement or masses noted. The major cerebral arteries and dural venous sinuses appear to be grossly normal. The orbits, mastoid areas, calvarium, and meninges are unremarkable. Impression: 1. Normal magnetic resonance imaging of the brain. 2. Moderate bilateral ethmoid and maxillary chronic sinusitis HPI: Patient is right handed male who presents late for visit, abbreviated visit offered. He does not have concerns about his memory, but Ruby is concerned because she is noting cognitive changes in her father, and is concerned about possible signs in [place]. He gets sidetracked at times. He misplaces objects. Details from conversations are lost at times. He has never taken care of the finances at home. He does not get lost driving. No problems using electronic devices, but they don't have excess computer devices at home. They have two children, and their son has mentioned concerns about his memory beginning several years ago, but mentions he is concerned for the past 6 months. No change in his sleep schedule, no naps during the day. He does snore, approximately 1-2 nights per week. He awakens feeling refreshed. He is not seeing provider in mental health, last time was in 2006. Ruby has noted he is not as humbled as he used to be. He loses his patience faster than he used to. He eats meat daily. No changes in weight recently General Examination: BP 163/73 (BP Site: Right Arm, BP Position: Sitting, BP Cuff Size: Large Adult) Pulse 63 He is accompanied and young child. General: Awake, alert, interactive, no acute distress, good nutritional status, normal development, well-kept Neurological Exam [place] Cognitive Assessment (MoCA) MoCA Total Score: 23 (out of 30) Visuospatial / Executive: 5/5 Namin/3 Attention: 5/6 Language: 2/3 Abstraction: 11/09 Delayed memory: 10/12 Orientation: 01/11 Education: 1 (1 is true, 0 is false) Cranial Nerves Visual soto: intact to confrontation Extraocular movements: conjugate and full Nystagmus: absent Pupils: R 2mm L 2mm equal reactive Ptosis: absent Trigeminal: V1-V3 intact, V motor normal Facial: face symmetric and strong Palate: central, normal movement, no dysphonia Tongue: normal bulk, strength, and rapid movements, no fasciculations protrudes to left XI: normal sternocleidomastoids and trapezius Motor Examination and Coordination Neuromuscular Examination Axial Muscles Ptosis: R: none L: none Face-eye closure: normal Face-mouth closure: normal Tongue: normal Tongue atrophy: no Head drop: no Extremity Muscles Upper Extremity Right Left Shoulder abduction 5 5 Elbow flexion 5 5 Elbow extension 5 5 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 Normal [facility] C[facility]-20[facility] DOMINIK VALENTINE ([id number]) 1960 M Date Time Provider Department 03/24/24 SUDHEER PAEZ During your visit today, we recorded the following information about you: Margo Hernandez MA 03/24/2024 9:28 AM Signed Received from PCP last office note with MRI. PSS scanned into chart, provider notified and placed in providers in box. Margo Hernandez MA Allergies As of Date: 03/24/2024 (No Known Allergies) Date Reviewed: 09/17/2017 Reviewed by: Sara Wilson (Rn), RN - Fully Assessed Prescriptions as of 03/24/2024 - metoprolol tartrate, short acting, (LOPRESSOR) 50 mg tablet Take 50 mg by mouth twice daily. - buPROPion XL (WELLBUTRIN XL) 150 mg 24 hr tablet Take 150 mg by mouth once daily. - escitalopram oxalate (LEXAPRO) 20 mg tablet Take 20 mg by mouth once daily. - NEXIUM 40 MG CAP Take one (1) capsule daily Problem List As Of Date 03/24/2024 Noted Resolved ESOPHAGEAL REFLUX [K21.9] 08/17/2005 IRRITABLE COLON [K58.9] 10/16/2005 Encounter Status:Closed by MARGO HERNANDEZ on 03/24/24 Normal [facility] Absolute lymphocyte countOrd ered By: Satya Dove on 12-28-2023 Lymphocytes Auto (Unsp spec) [#/Vol] 2.74 10*3/uL 0.83-4.51 [facility] Automated lymphocyte count a s percentage of total leukocytesOrdered By: Satya Dove on 12-28-2023 Lymphocytes/100 WBC Auto (Unsp spec) 22.9 % 19-41 [facility] Basophil percentageOrdered B y: Satya Dove on 12-28-2023 Basophils/100 WBC (Bld) 0.7 % 0-1 [facility] Bilirubin [Mass/Vol] 0.70 mg/dL 0.20-1.00 [facility] Comment on above: For patients on eltr ombopag therapy, use of Dimension [place] TBIL is not recommended. Chloride [Moles/Vol] 106 mmol/L 98-107 [facility] Cholesterol [Mass/Vol] 135 mg/dL <200 [facility] Comment on above: <200 mg/dL Desirable 200-240 mg/dL Borderline >240 mg/dL High Risk Eosinophils/100 WBC (Bld) 1.3 % 0-5 [facility] Glucose [Mass/Vol] 127 mg/dL 74-106 [facility] Comment on above: Fasting Glucose resu lt greater than or equal to 126 mg/dL suggests DIABETES MELLITUS per A.D.A. criteria. Hemoglobin (Bld) [Mass/Vol] 15.0 g/dL 13.0-16.5 [facility] Monocytes/100 WBC (Bld) 7.4 % 0-10 [facility] Neutrophils (Bld) [#/Vol] 8.1 10*3/uL 2.0-7.7 [facility] Neutrophils/100 WBC (Bld) 67.4 % 47-70 [facility] Potassium [Moles/Vol] 4.6 mmol/L 3.5-5.1 [facility] Protein [Mass/Vol] 7.7 g/dL 6.4-8.2 [facility] Sodium [Moles/Vol] 139 mmol/L 136-145 [facility] Triglyceride [Mass/Vol] 64 mg/dL <199 [facility] Comment on above: The drugs N-Acetylcy steine and Metamizole may falsely depress this assay.Serum Triglycerides Reference Interval Normal <150 mg/dL Borderline high 150 - 199 mg/dL High 200 - 499 mg/dL Very High > or = 500 mg/dL WBC (Bld) [#/Vol] 11.9 10*3/uL 4.4-11.0 [facility] Determination of erythrocyte mean corpuscular volume (MCV)Ordered By: Satya Dove on 12-28-2023 MCV (RBC) [Entitic vol] 88.0 fL 80-94 [facility] Erythrocyte distribution wid th ratioOrdered By: Satya Dove on 12-28-2023 Erythrocyte distribution width (RBC) [Ratio] 13.7 % 11.6-14.6 [facility] Erythrocyte distribution wid th standard deviationOrdered By: Satya Dove on 12-28-2023 Erythrocyte distribution width (RBC) [Entitic vol] 44.1 fL 35.1-43.9 [facility] Hematocrit Auto (Bld) [Volum e fraction]Ordered By: Satya Dove on 12-28-2023 Hematocrit (Bld) [Volume fraction] 46.3 % 40-54 [facility] Immature granulocytes/100 WB C Auto (Bld)Ordered By: Satya Dove on 12-28-2023 Immature granulocytes/100 WBC (Bld) 0.300 % 0.0-0.9 [facility] Comment on above: IG% - Immature Granu locytes (promyelocytes, myelocytes and metamyelocytes) > 1% indicates that a LEFT SHIFT is Present. Laboratory - Chemistry and C hemistry - challengeOrdered By: Satya Dove on 12-28-2023 Albumin/Globulin [Mass ratio] 1.0 {ratio} 0.9-2.4 [facility] ALP [Catalytic activity/Vol] 66 U/L 45-117 [facility] ALT [Catalytic activity/Vol] 28 U/L 16-61 [facility] Cholesterol in HDL [Mass/Vol] 34 mg/dL >40 [facility] Comment on above: The drugs N-Acetylcy steine and Metamizole may falsely depress this assay. Reference Range HDL <40 mg/dL Low HDL Cholesterol HDL >or= 60 mg/dL High HDL Cholesterol Cholesterol in LDL [Mass/Vol] 88 mg/dL 0-130 [facility] CO2 [Moles/Vol] 28.0 mmol/L 21.0-32.0 [facility] Globulin (S) [Mass/Vol] 3.9 g/dL 2.2-4.2 [facility] Magnesium [Mass/Vol] 2.3 mg/dL 1.6-2.6 [facility] Urea nitrogen/Creatinine [Mass ratio] 10.6 mg/mg 10-20 [facility] Laboratory - Hematology and Cell countsOrdered By: Satya Dove on 12-28-2023 MCH (RBC) [Entitic mass] 28.5 pg 27.0-32.0 [facility] MCHC (RBC) [Mass/Vol] 32.4 g/dL 32-36 [facility] Nucleated RBC/100 WBC (Bld) [Ratio] 0 % 0-5 [facility] Platelet mean volume (Bld) [Entitic vol] 9.4 fL 6.2-12.0 [facility] Platelets (Bld) [#/Vol] 256 10*3/uL 150-450 [facility] No Panel InformationOrdered By: Satya Dove on 12-28-2023 Estimated GFR (MDRD) Amer 104 mL/min >60 [facility] Comment on above: GFR Calc Estimated GFR (MDRD) Non-Af Amer 86 mL/min >60 [facility] Comment on above: Non- GFR Calc Prostate Specific Antigen Screen 0.90 ng/mL 0.00-4.00 [facility] Comment on above: This test was perfor med using the TPSA assay method for the[employer] chemistry system. Values obtained with differentassay methods cannot be used interchangably.When changing PSA assays in the course of monitoring apatient, additional sequential testing should be carriedout to confirm baseline values. VLDL Cholesterol 13 mg/dL 5-40 [facility] RBC Auto (Bld) [#/Vol]Ordere d By: Satya Dove on 12-28-2023 RBC (Bld) [#/Vol] 5.26 10*6/uL 4.6-6.2 [facility] Serum or plasma calcium eva urement (mass/volume)Ordered By: Satya Dove on 12-28-2023 Calcium [Mass/Vol] 9.2 mg/dL 8.5-10.1 [facility] Serum or plasma creatinine m easurement (mass/volume)Ordered By: Satya Dove on 12-28-2023 Creatinine [Mass/Vol] 0.94 mg/dL 0.70-1.30 [facility] Comment on above: The validity of the calculated GFR & GFRAA in patients over 70 years has not been determined. Clinical correlation is essential. Serum or plasma urea nitroge n measurement (mass/volume)Ordered By: Satya Dove on 12-28-2023 Urea nitrogen [Mass/Vol] 10 mg/dL 7-18 [facility] Thin prep Papanicolaou smear with manual screeningOrdered By: Satya Dove on 12-28-2023 Thin prep Papanicolaou smear with manual screening 3.8 g/dL 3.2-5.0 [facility] Thin prep Papanicolaou smear with manual screening 29 U/L 15-37 [facility] Thin prep Papanicolaou smear with manual screening 5 5-15 [facility] Whole blood hemoglobin A1c/t otal hemoglobin ratio (mass fraction)Ordered By: Satya Dove on 12-28-2023 HbA1c (Bld) [Mass fraction] 5.5 % 3.8-5.6 [facility] Comment on above: Normal < 5.7 % Predi abetic 5.7 - 6.4 % Diabetic >or= 6.5 % Please note range changes. Absolute lymphocyte countOrd ered By: Satya Parsonisabel on 07-05-2023 Lymphocytes Auto (Unsp spec) [#/Vol] 2.76 10*3/uL 0.83-4.51 [facility] Basophil percentageOrdered B y: Satya Dove on 07-05-2023 Basophils/100 WBC (Bld) 0.8 % 0-1 [facility] Bilirubin [Mass/Vol] 0.90 mg/dL 0.20-1.00 [facility] Comment on above: For patients on eltr ombopag therapy, use of Dimension [place] TBIL is not recommended. Chloride [Moles/Vol] 106 mmol/L 98-107 [facility] Cholesterol [Mass/Vol] 137 mg/dL <200 [facility] Comment on above: <200 mg/dL Desirable 200-240 mg/dL Borderline >240 mg/dL High Risk Eosinophils/100 WBC (Bld) 1.3 % 0-5 [facility] Glucose [Mass/Vol] 97 mg/dL 74-106 [facility] Neutrophils (Bld) [#/Vol] 7.8 10*3/uL 2.0-7.7 [facility] Neutrophils/100 WBC (Bld) 66.7 % 47-70 [facility] Potassium [Moles/Vol] 4.1 mmol/L 3.5-5.1 [facility] Protein [Mass/Vol] 7.7 g/dL 6.4-8.2 [facility] Sodium [Moles/Vol] 138 mmol/L 136-145 [facility] Triglyceride [Mass/Vol] 112 mg/dL <199 [facility] Comment on above: The drugs N-Acetylcy steine and Metamizole may falsely depress this assay.Serum Triglycerides Reference Interval Normal <150 mg/dL Borderline high 150 - 199 mg/dL High 200 - 499 mg/dL Very High > or = 500 mg/dL WBC (Bld) [#/Vol] 11.7 10*3/uL 4.4-11.0 [facility] Blood erythrocytes count (nu mber/volume)Ordered By: Satya Dove on 07-05-2023 RBC (Bld) [#/Vol] 5.18 10*6/uL 4.6-6.2 [facility] Blood hemoglobin measurement (mass/volume)Ordered By: Satya Dove on 07-05-2023 Hemoglobin (Bld) [Mass/Vol] 15.0 g/dL 13.0-16.5 [facility] Blood lymphocytes/100 leukoc ytesOrdered By: Satya Dove on 07-05-2023 Lymphocytes/100 WBC (Bld) 23.7 % 19-41 [facility] Blood monocytes/100 leukocyt esOrdered By: Satya Dove on 07-05-2023 Monocytes/100 WBC (Bld) 7.2 % 0-10 [facility] Blood platelet mean volumeOr dered By: Satya Dove on 07-05-2023 Platelet mean volume (Bld) [Entitic vol] 9.7 fL 6.2-12.0 [facility] Determination of erythrocyte mean corpuscular volume (MCV)Ordered By: Satya Dove on 07-05-2023 MCV (RBC) [Entitic vol] 89.2 fL 80-94 [facility] Hematocrit Auto (Bld) [Volum e fraction]Ordered By: Satya Dove on 07-05-2023 Hematocrit (Bld) [Volume fraction] 46.2 % 40-54 [facility] Laboratory - Chemistry and C hemistry - challengeOrdered By: Satya Dove on 07-05-2023 ALP [Catalytic activity/Vol] 68 U/L 45-117 [facility] ALT [Catalytic activity/Vol] 38 U/L 16-61 [facility] CO2 [Moles/Vol] 28.0 mmol/L 21.0-32.0 [facility] Globulin (S) [Mass/Vol] 3.8 g/dL 2.2-4.2 [facility] Urea nitrogen/Creatinine [Mass ratio] 11.5 mg/mg 10-20 [facility] - Hematology and Cell countsOrdered By: Satya Dove on 07-05-2023 Erythrocyte distribution width (RBC) [Entitic vol] 44.3 fL 35.1-43.9 [facility] Erythrocyte distribution width (RBC) [Ratio] 13.6 % 11.6-14.6 [facility] Immature granulocytes/100 WBC (Bld) 0.300 % 0.0-0.9 [facility] Comment on above: IG% - Immature Granu locytes (promyelocytes, myelocytes and metamyelocytes) > 1% indicates that a LEFT SHIFT is Present. MCH (RBC) [Entitic mass] 29.0 pg 27.0-32.0 [facility] Nucleated RBC/100 WBC (Bld) [Ratio] 0 % 0-5 [facility] MCHC Auto (RBC) [Mass/Vol]Or dered By: Satya Dove on 07-05-2023 MCHC (RBC) [Mass/Vol] 32.5 g/dL 32-36 [facility] No Panel InformationOrdered By: Satya Dove on 07-05-2023 Estimated GFR (MDRD) Amer 129 mL/min >60 [facility] Comment on above: GFR Calc Estimated GFR (MDRD) Non-Af Amer 107 mL/min >60 [facility] Comment on above: Non- GFR Calc Platelets bldOrdered By: Bereket Dove on 07-05-2023 Platelets (Bld) [#/Vol] 264 10*3/uL 150-450 [facility] Serum or plasma albumin eva urement (mass/volume)Ordered By: Satya Dove on 07-05-2023 Albumin [Mass/Vol] 3.9 g/dL 3.2-5.0 [facility] Serum or plasma albumin/glob ulin mass ratioOrdered By: Satya Dove on 07-05-2023 Albumin/Globulin [Mass ratio] 1.0 {ratio} 0.9-2.4 [facility] Serum or plasma calcium eva urement (mass/volume)Ordered By: Satya Dove on 07-05-2023 Calcium [Mass/Vol] 9.7 mg/dL 8.5-10.1 [facility] Serum or plasma cholesterol in HDL measurement (mass/volume)Ordered By: Satya Dove on 07-05-2023 Cholesterol in HDL [Mass/Vol] 34 mg/dL >40 [facility] Comment on above: The drugs N-Acetylcy steine and Metamizole may falsely depress this assay. Reference Range HDL <40 mg/dL Low HDL Cholesterol HDL >or= 60 mg/dL High HDL Cholesterol Serum or plasma cholesterol in VLDL measurement (mass/volume)Ordered By: Satya Dove on 07-05-2023 Cholesterol in VLDL [Mass/Vol] 22 mg/dL 5-40 [facility] Serum or plasma creatinine m easurement (mass/volume)Ordered By: Satya Dove on 07-05-2023 Creatinine [Mass/Vol] 0.78 mg/dL 0.70-1.30 [facility] Comment on above: The validity of the calculated GFR & GFRAA in patients over 70 years has not been determined. Clinical correlation is essential. Serum or plasma low density lipoprotein (LDL) cholesterol measurement (mass/volume)Ordered By: Satya Dove on 07-05-2023 Cholesterol in LDL [Mass/Vol] 81 mg/dL 0-130 [facility] Serum or plasma urea nitroge n measurement (mass/volume)Ordered By: Satya Dove on 07-05-2023 Urea nitrogen [Mass/Vol] 9 mg/dL 7-18 [facility] Thin prep Papanicolaou smear with manual screeningOrdered By: Satya Dove on 07-05-2023 Thin prep Papanicolaou smear with manual screening 24 U/L 15-37 [facility] Thin prep Papanicolaou smear with manual screening 4 5-15 [facility] Whole blood hemoglobin A1c/t otal hemoglobin ratio (mass fraction)Ordered By: Satya Dove on 07-05-2023 HbA1c (Bld) [Mass fraction] 5.5 % 3.8-5.6 [facility] Comment on above: Normal < 5.7 % Predi abetic 5.7 - 6.4 % Diabetic >or= 6.5 % Please note range changes. Basophil percentageOrdered B y: Dr. Dove on 03-20-2023 Basophil percentage < 0.9 mg/dL 0.70-1.30 [facility] No Panel InformationOrdered By: Dr. Dove on 03-20-2023 Bedside Estimated GFR (eGFR) > 60.0000 mL/min >60 [facility] Absolute lymphocyte countOrd ered By: Dr. Dove on 02-13-2023 Lymphocytes Auto (Unsp spec) [#/Vol] 2.94 10*3/uL 0.83-4.51 [facility] Basophil percentageOrdered B y: Dr. Dove on 02-13-2023 Basophil percentage 0 SEEN /hpf 0-5 [facility] Basophils/100 WBC (Bld) 1.2 % 0-1 [facility] Bilirubin [Mass/Vol] 0.70 mg/dL 0.20-1.00 [facility] Comment on above: For patients on eltr ombopag therapy, use of Dimension [place] TBIL is not recommended. Chloride [Moles/Vol] 107 mmol/L 98-107 [facility] Cholesterol [Mass/Vol] 138 mg/dL <200 [facility] Comment on above: <200 mg/dL Desirable 200-240 mg/dL Borderline >240 mg/dL High Risk Eosinophils/100 WBC (Bld) 2.0 % 0-5 [facility] Glucose [Mass/Vol] 102 mg/dL 74-106 [facility] Comment on above: Fasting Glucose resu lt from 100 to 125 mg/dL suggests IMPAIRED HOMEOSTASIS per A.D.A. criteria. Neutrophils (Bld) [#/Vol] 5.3 10*3/uL 2.0-7.7 [facility] Neutrophils/100 WBC (Bld) 56.1 % 47-70 [facility] Potassium [Moles/Vol] 4.6 mmol/L 3.5-5.1 [facility] Protein [Mass/Vol] 7.2 g/dL 6.4-8.2 [facility] Sodium [Moles/Vol] 139 mmol/L 136-145 [facility] Triglyceride [Mass/Vol] 76 mg/dL <199 [facility] Comment on above: The drugs N-Acetylcy steine and Metamizole may falsely depress this assay.Serum Triglycerides Reference Interval Normal <150 mg/dL Borderline high 150 - 199 mg/dL High 200 - 499 mg/dL Very High > or = 500 mg/dL WBC (Bld) [#/Vol] 9.4 10*3/uL 4.4-11.0 [facility] Bilirubin Test strip Ql (U)O rdered By: Dr. Dove on 02-13-2023 Bilirubin Ql (U) Negative Negative [facility] Blood erythrocytes count (nu mber/volume)Ordered By: Dr. Dove on 02-13-2023 RBC (Bld) [#/Vol] 5.22 10*6/uL 4.6-6.2 [facility] Blood hemoglobin measurement (mass/volume)Ordered By: Dr. Dove on 02-13-2023 Hemoglobin (Bld) [Mass/Vol] 14.8 g/dL 13.0-16.5 [facility] Blood lymphocytes/100 leukoc ytesOrdered By: Dr. Dove on 02-13-2023 Lymphocytes/100 WBC (Bld) 31.2 % 19-41 [facility] Blood monocytes/100 leukocyt esOrdered By: Dr. Dove on 02-13-2023 Monocytes/100 WBC (Bld) 9.1 % 0-10 [facility] Blood platelet mean volumeOr dered By: Dr. Dove on 02-13-2023 Platelet mean volume (Bld) [Entitic vol] 9.6 fL 6.2-12.0 [facility] Determination of erythrocyte mean corpuscular volume (MCV)Ordered By: Dr. Dove on 02-13-2023 MCV (RBC) [Entitic vol] 89.1 fL 80-94 [facility] Hematocrit Auto (Bld) [Volum e fraction]Ordered By: Dr. Dove on 02-13-2023 Hematocrit (Bld) [Volume fraction] 46.5 % 40-54 [facility] Ketones Test strip Ql (U)Ord ered By: Dr. Dove on 02-13-2023 Ketones Ql (U) Negative Negative [facility] Laboratory - Chemistry and C hemistry - challengeOrdered By: Dr. Dove on 02-13-2023 ALP [Catalytic activity/Vol] 75 U/L 45-117 [facility] ALT [Catalytic activity/Vol] 34 U/L 16-61 [facility] CO2 [Moles/Vol] 28.0 mmol/L 21.0-32.0 [facility] Globulin (S) [Mass/Vol] 3.3 g/dL 2.2-4.2 [facility] Urea nitrogen/Creatinine [Mass ratio] 11.8 mg/mg 10-20 [facility] Laboratory - Hematology and Cell countsOrdered By: Dr. Dove on 02-13-2023 Erythrocyte distribution width (RBC) [Entitic vol] 45.0 fL 35.1-43.9 [facility] Erythrocyte distribution width (RBC) [Ratio] 13.8 % 11.6-14.6 [facility] Immature granulocytes/100 WBC (Bld) 0.400 % 0.0-0.9 [facility] Comment on above: IG% - Immature Granu locytes (promyelocytes, myelocytes and metamyelocytes) > 1% indicates that a LEFT SHIFT is Present. MCH (RBC) [Entitic mass] 28.4 pg 27.0-32.0 [facility] Nucleated RBC/100 WBC (Bld) [Ratio] 0 % 0-5 [facility] MCHC Auto (RBC) [Mass/Vol]Or dered By: Dr. Dove on 02-13-2023 MCHC (RBC) [Mass/Vol] 31.8 g/dL 32-36 [facility] Mucus LM Ql (Urine sed)Order ed By: Dr. Dove on 02-13-2023 Mucus Ql (Urine sed) 0 SEEN /hpf [facility] Nitrite Test strip Ql (U)Ord ered By: Dr. Dove on 02-13-2023 Nitrite Ql (U) Negative Negative [facility] No Panel InformationOrdered By: Dr. Dove on 02-13-2023 Estimated GFR (MDRD) Amer 118 mL/min >60 [facility] Comment on above: GFR Calc Estimated GFR (MDRD) Non-Af Amer 97 mL/min >60 [facility] Comment on above: Non- GFR Calc Thyroid Stimulating Hormone (TSH) 1.30 uIU/mL 0.358-3.74 [facility] Platelets bldOrdered By: Dr. Dove on 02-13-2023 Platelets (Bld) [#/Vol] 266 10*3/uL 150-450 [facility] Protein Test strip Ql (U)Ord ered By: Dr. Dove on 02-13-2023 Protein Ql (U) Negative Negative [facility] Serum or plasma albumin eva urement (mass/volume)Ordered By: Dr. Dove on 02-13-2023 Albumin [Mass/Vol] 3.9 g/dL 3.2-5.0 [facility] Serum or plasma albumin/glob ulin mass ratioOrdered By: Dr. Dove on 02-13-2023 Albumin/Globulin [Mass ratio] 1.2 {ratio} 0.9-2.4 [facility] Serum or plasma calcium eva urement (mass/volume)Ordered By: Dr. Dove on 02-13-2023 Calcium [Mass/Vol] 9.4 mg/dL 8.5-10.1 [facility] Serum or plasma cholesterol in HDL measurement (mass/volume)Ordered By: Dr. Dove on 02-13-2023 Cholesterol in HDL [Mass/Vol] 32 mg/dL >40 [facility] Comment on above: The drugs N-Acetylcy steine and Metamizole may falsely depress this assay. Reference Range HDL <40 mg/dL Low HDL Cholesterol HDL >or= 60 mg/dL High HDL Cholesterol Serum or plasma cholesterol in VLDL measurement (mass/volume)Ordered By: Dr. Dove on 02-13-2023 Cholesterol in VLDL [Mass/Vol] 15 mg/dL 5-40 [facility] Serum or plasma creatinine m easurement (mass/volume)Ordered By: Dr. Dove on 02-13-2023 Creatinine [Mass/Vol] 0.85 mg/dL 0.70-1.30 [facility] Comment on above: The validity of the calculated GFR & GFRAA in patients over 70 years has not been determined. Clinical correlation is essential. Serum or plasma low density lipoprotein (LDL) cholesterol measurement (mass/volume)Ordered By: Dr. Dove on 02-13-2023 Cholesterol in LDL [Mass/Vol] 91 mg/dL 0-130 [facility] Serum or plasma urea nitroge n measurement (mass/volume)Ordered By: Dr. Dove on 02-13-2023 Urea nitrogen [Mass/Vol] 10 mg/dL 7-18 [facility] Squamous epithelial cells de tection in urine sediment by light microscopyOrdered By: Dr. Dove on 02-13-2023 Epithelial cells.squamous LM Ql (Urine sed) 0 SEEN /hpf 0-5 [facility] Thin prep Papanicolaou smear with manual screeningOrdered By: Dr. Dove on 02-13-2023 Thin prep Papanicolaou smear with manual screening 25 U/L 15-37 [facility] Thin prep Papanicolaou smear with manual screening 4 5-15 [facility] Urine blood detectionOrdered By: Dr. Dove on 02-13-2023 RBC Ql (U) 25 /ul Negative [facility] RBC Ql (U) 0 SEEN /hpf 0-5 [facility] Urine clarityOrdered By: Dr. Dove on 02-13-2023 Clarity (U) Clear Clear [facility] Urine color determinationOrd ered By: Dr. Dove on 02-13-2023 Color (U) Yellow Yellow [facility] Urine glucose detectionOrder ed By: Dr. Dove on 02-13-2023 Glucose Ql (U) Normal mg/dl Normal [facility] Urine leukocyte esterase det ection by dipstickOrdered By: Dr. Dove on 02-13-2023 Leukocyte esterase Test strip Ql (U) Negative Negative [facility] Urine pHOrdered By: Dr. Wang mathew on 02-13-2023 pH (U) 7.0 [pH] 5.0 - 8.0 [facility] Urine sediment bacteria coun t by microscopy (number/high power field)Ordered By: Dr. Dove on 02-13-2023 Bacteria LM.HPF (Urine sed) [#/Area] 0 /[HPF] None Seen [facility] Urine specific gravity measu rementOrdered By: Dr. Dove on 02-13-2023 Specific gravity (U) [Rel density] 1.005 1.002-1.030 [facility] Urobilinogen Auto test strip Ql (U)Ordered By: Dr. Dove on 02-13-2023 Urobilinogen Ql (U) Normal mg/dl Normal [facility] Whole blood hemoglobin A1c/t otal hemoglobin ratio (mass fraction)Ordered By: Dr. Dove on 02-13-2023 HbA1c (Bld) [Mass fraction] 5.5 % 3.8-5.6 [facility] Comment on above: Normal < 5.7 % Predi abetic 5.7 - 6.4 % Diabetic >or= 6.5 % Please note range changes. Absolute lymphocyte counton 02-16-2022 Lymphocytes Auto (Unsp spec) [#/Vol] 3.46 10*3/uL 0.83-4.51 [facility] Work Phone: Basophil percentageon 2021 Basophil percentage 0 SEEN /hpf [facility] Work Phone: Basophils/100 WBC (Bld) 0.6 % 0-1 [facility] Work Phone: Bilirubin [Mass/Vol] 0.90 mg/dL 0.20-1.00 [facility] Work Phone: Comment on above: For patients on eltr ombopag therapy, use of Dimension [place] TBIL is not recommended. Chloride [Moles/Vol] 105 mmol/L 98-107 [facility] Work Phone: Cholesterol [Mass/Vol] 129 mg/dL <200 [facility] Work Phone: Comment on above: <200 mg/dL Desirable 200-240 mg/dL Borderline >240 mg/dL High Risk Eosinophils/100 WBC (Bld) 1.8 % 0-5 [facility] Work Phone: Glucose [Mass/Vol] 100 mg/dL 74-106 [facility] Work Phone: Comment on above: Fasting Glucose resu lt from 100 to 125 mg/dL suggests IMPAIRED HOMEOSTASIS per A.D.A. criteria. Neutrophils (Bld) [#/Vol] 5.2 10*3/uL 2.0-7.7 [facility] Work Phone: Neutrophils/100 WBC (Bld) 52.6 % 47-70 [facility] Work Phone: Potassium [Moles/Vol] 4.6 mmol/L 3.5-5.1 [facility] Work Phone: [phone] Protein [Mass/Vol] 7.6 g/dL 6.4-8.2 [facility] Work Phone: Sodium [Moles/Vol] 137 mmol/L 136-145 [facility] Work Phone: [phone] Triglyceride [Mass/Vol] 133 mg/dL [facility] Work Phone: [phone] Comment on above: The drugs N-Acetylcy steine and Metamizole may falsely depress this assay.Serum Triglycerides Reference Interval Normal <150 mg/dL Borderline high 150 - 199 mg/dL High 200 - 499 mg/dL Very High > or = 500 mg/dL WBC (Bld) [#/Vol] 9.9 10*3/uL 4.4-11.0 [facility] Work Phone: Bilirubin Test strip Ql (U)o n 02-16-2022 Bilirubin Ql (U) Negative Negative [facility] Work Phone: [phone] Blood erythrocytes count (nu mber/volume)on 02-16-2022 RBC (Bld) [#/Vol] 5.16 10*6/uL 4.6-6.2 [facility] Work Phone: [phone] Blood hemoglobin measurement (mass/volume)on 02-16-2022 Hemoglobin (Bld) [Mass/Vol] 14.9 g/dL 13.0-16.5 [facility] Work Phone: Blood lymphocytes/100 leukoc yteson 02-16-2022 Lymphocytes/100 WBC (Bld) 35.1 % 19-41 [facility] Work Phone: [phone] Blood monocytes/100 leukocyt eson 02-16-2022 Monocytes/100 WBC (Bld) 9.2 % 0-10 [facility] Work Phone: [phone] Blood platelet mean volumeon 02-16-2022 Platelet mean volume (Bld) [Entitic vol] 10.1 fL 6.2-12.0 [facility] Work Phone: [phone] Determination of erythrocyte mean corpuscular volume (MCV)on 02-16-2022 MCV (RBC) [Entitic vol] 88.4 fL 80-94 [facility] Work Phone: [phone] Hematocrit Auto (Bld) [Volum e fraction]on 02-16-2022 Hematocrit (Bld) [Volume fraction] 45.6 % 40-54 [facility] Work Phone: [phone] Ketones Test strip Ql (U)on 02-16-2022 Ketones Ql (U) Negative Negative [facility] Work Phone: [phone] Laboratory - Chemistry and C hemistry - challengeon 02-16-2022 ALP [Catalytic activity/Vol] 69 U/L 45-117 [facility] Work Phone: [phone] ALT [Catalytic activity/Vol] 49 U/L 16-61 [facility] Work Phone: [phone] CO2 [Moles/Vol] 27.0 mmol/L 21.0-32.0 [facility] Work Phone: [phone] Globulin (S) [Mass/Vol] 3.7 g/dL 2.2-4.2 [facility] Work Phone: [phone] Urea nitrogen/Creatinine [Mass ratio] 12.3 mg/mg 10-20 [facility] Work Phone: [phone] Laboratory - Hematology and Cell countson 02-16-2022 Erythrocyte distribution width (RBC) [Entitic vol] 43.6 fL 35.1-43.9 [facility] Work Phone: [phone] Erythrocyte distribution width (RBC) [Ratio] 13.4 % 11.6-14.6 [facility] Work Phone: [phone] Immature granulocytes/100 WBC (Bld) 0.700 % 0.0-0.9 [facility] Work Phone: [phone] Comment on above: IG% - Immature Granu locytes (promyelocytes, myelocytes and metamyelocytes) > 1% indicates that a LEFT SHIFT is Present. MCH (RBC) [Entitic mass] 28.9 pg 27.0-32.0 [facility] Work Phone: [phone] Nucleated RBC/100 WBC (Bld) [Ratio] 0 % 0-5 [facility] Work Phone: MCHC Auto (RBC) [Mass/Vol]on 02-16-2022 MCHC (RBC) [Mass/Vol] 32.7 g/dL 32-36 [facility] Work Phone: Mucus LM Ql (Urine sed)on Mucus Ql (Urine sed) 0 SEEN /hpf [facility] Work Phone: Nitrite Test strip Ql (U)on 02-16-2022 Nitrite Ql (U) Negative Negative [facility] Work Phone: No Panel Informationon 02-16 Estimated GFR (MDRD) Amer 125 mL/min >60 [facility] Work Phone: Comment on above: GFR Calc Estimated GFR (MDRD) Non-Af Amer 103 mL/min >60 [facility] Work Phone: Comment on above: Non- GFR Calc Platelets bldon 02-16-2022 Platelets (Bld) [#/Vol] 268 10*3/uL 150-450 [facility] Work Phone: Protein Test strip Ql (U)on 02-16-2022 Protein Ql (U) Negative Negative [facility] Work Phone: [phone] Serum or plasma albumin eva urement (mass/volume)on 02-16-2022 Albumin [Mass/Vol] 3.9 g/dL 3.2-5.0 [facility] Work Phone: [phone] Serum or plasma albumin/glob ulin mass ratioon 02-16-2022 Albumin/Globulin [Mass ratio] 1.1 {ratio} 0.9-2.4 [facility] Work Phone: [phone] Serum or plasma calcium eva urement (mass/volume)on 02-16-2022 Calcium [Mass/Vol] 9.2 mg/dL 8.5-10.1 [facility] Work Phone: [phone] Serum or plasma cholesterol in HDL measurement (mass/volume)on 02-16-2022 Cholesterol in HDL [Mass/Vol] 26 mg/dL [facility] Work Phone: [phone] Comment on above: The drugs N-Acetylcy steine and Metamizole may falsely depress this assay. Reference Range HDL <40 mg/dL Low HDL Cholesterol HDL >or= 60 mg/dL High HDL Cholesterol Serum or plasma cholesterol in VLDL measurement (mass/volume)on 02-16-2022 Cholesterol in VLDL [Mass/Vol] 27 mg/dL 5-40 [facility] Work Phone: [phone] Serum or plasma creatinine m easurement (mass/volume)on 02-16-2022 Creatinine [Mass/Vol] 0.81 mg/dL 0.70-1.30 [facility] Work Phone: Comment on above: The validity of the calculated GFR & GFRAA in patients over 70 years has not been determined. Clinical correlation is essential. Serum or plasma low density lipoprotein (LDL) cholesterol measurement (mass/volume)on 02-16-2022 Cholesterol in LDL [Mass/Vol] 76 mg/dL 0-130 [facility] Work Phone: [phone] Serum or plasma urea nitroge n measurement (mass/volume)on 02-16-2022 Urea nitrogen [Mass/Vol] 10 mg/dL 7-18 [facility] Work Phone: [phone] Squamous epithelial cells de tection in urine sediment by light microscopyon 02-16-2022 Epithelial cells.squamous LM Ql (Urine sed) 0 SEEN /hpf [facility] Work Phone: [phone] Thin prep Papanicolaou smear with manual screeningon 02-16-2022 Thin prep Papanicolaou smear with manual screening 27 U/L 15-37 [facility] Work Phone: [phone] Thin prep Papanicolaou smear with manual screening 5 5-15 [facility] Work Phone: [phone] Urine blood detectionon 02-05 RBC Ql (U) 25 /ul Negative [facility] Work Phone: [phone] RBC Ql (U) 0 SEEN /hpf [facility] Work Phone: [phone] Urine clarityon 02-16-2022 Clarity (U) Clear Clear [facility] Work Phone: [phone] Urine color determinationon 02-16-2022 Color (U) Yellow Yellow [facility] Work Phone: Urine glucose detectionon Glucose Ql (U) Normal mg/dl Normal [facility] Work Phone: Urine leukocyte esterase det ection by dipstickon 02-16-2022 Leukocyte esterase Test strip Ql (U) Negative Negative [facility] Work Phone: Urine pHon 02-16-2022 pH (U) 6.0 [pH] [facility] Work Phone: Urine sediment bacteria coun t by microscopy (number/high power field)on 02-16-2022 Bacteria LM.HPF (Urine sed) [#/Area] 0 /[HPF] None Seen [facility] Work Phone: Urine specific gravity measu rementon 02-16-2022 Specific gravity (U) [Rel density] 1.010 [facility] Work Phone: Urobilinogen Auto test strip Ql (U)on 02-16-2022 Urobilinogen Ql (U) Normal mg/dl Normal [facility] Work Phone: Whole blood hemoglobin A1c/t otal hemoglobin ratio (mass fraction)on 02-16-2022 HbA1c (Bld) [Mass fraction] 5.7 % 3.8-5.6 [facility] Work Phone: Comment on above: Normal < 5.7 % Predi abetic 5.7 - 6.4 % Diabetic >or= 6.5 % Please note range changes. Vital Signs Date Time Vital Sign Value Performing Clinician Facility 04-22-2025 10:00-0400 Body height 172.[address] Satya Dove MD Work Phone: [facility] 04-22-2025 10:00-0400 Body mass index (BMI) [Ratio] 25.9 kg/m2 Dr. Satya Dove MD Work Phone: [facility] 04-22-2025 10:00-0400 Body temperature 96.9 [degF] Dr. Satya Dove MD Work Phone: [facility] 04-22-2025 10:00-0400 Body weight 77.[address] Satya Dove MD Work Phone: [facility] 04-22-2025 10:00-0400 Diastolic blood pressure 76 mm[Hg] Dr. Satya Dove MD Work Phone: [facility] 04-22-2025 10:00-0400 Heart rate 54 /min Dr. Satya Dove MD Work Phone: [facility] 04-22-2025 10:00-0400 Respiratory rate 16 /min Dr. Satya Dove MD Work Phone: [phone] [address] 04-22-2025 10:00-0400 SaO2% (BldA) [Mass fraction] 97 % Dr. Satya Dove MD Work Phone: [phone] [place] [address] 04-22-2025 10:00-0400 Systolic blood pressure 137 mm[Hg] Dr. Satya Dove MD Work Phone: [facility] 04-20-2025 10:02-0400 Body weight [address] Satya Dove MD Work Phone: [facility] 04-15-2025 10:00-0400 Body height 172.[address] Satya Dove MD Work Phone: [phone] [address] 04-15-2025 10:00-0400 Body mass index (BMI) [Ratio] 25.4 kg/m2 Dr. Satya Dove MD Work Phone: [facility] 04-15-2025 10:00-0400 Body temperature 97 [degF] Dr. Satya Dove MD Work Phone: [facility] 04-15-2025 10:00-0400 Body weight [address] Satya Dove MD Work Phone: [facility] 04-15-2025 10:00-0400 Diastolic blood pressure 76 mm[Hg] Dr. Satya Dove MD Work Phone: [facility] 04-15-2025 10:00-0400 Heart rate 43 /min Dr. Satya Dove MD Work Phone: [facility] 04-15-2025 10:00-0400 Respiratory rate 16 /min Dr. Satya Dove MD Work Phone: [facility] 04-15-2025 10:00-0400 SaO2% (BldA) [Mass fraction] 100 % Dr. Satya Dove MD Work Phone: [facility] 04-15-2025 10:00-0400 Systolic blood pressure 159 mm[Hg] Dr. Satya Dove MD Work Phone: [phone] [place] [address] 04-08-2025 10:00-0400 Body height 172.[address] Satya Dove MD Work Phone: [phone] [place] [address] 04-08-2025 10:00-0400 Body mass index (BMI) [Ratio] 25.5 kg/m2 Dr. Staya Dove MD Work Phone: [phone] [place] [address] 04-08-2025 10:00-0400 Body temperature 97.5 [degF] Dr. Satya Dove MD Work Phone: [phone] [place] [address] 04-08-2025 10:00-0400 Body weight 76.[address] Satya Dove MD Work Phone: [phone] [place] [address] 04-08-2025 10:00-0400 Diastolic blood pressure 77 mm[Hg] Dr. Satya Dove MD Work Phone: [phone] [place] [address] 04-08-2025 10:00-0400 Heart rate 43 /min Dr. Satya Dove MD Work Phone: [phone] [place] [address] 04-08-2025 10:00-0400 Respiratory rate 18 /min Dr. Satya Dove MD Work Phone: [facility] 04-08-2025 10:00-0400 SaO2% (BldA) [Mass fraction] 99 % Dr. Satya Dove MD Work Phone: [facility] 04-08-2025 10:00-0400 Systolic blood pressure 144 mm[Hg] Dr. Satya Dove MD Work Phone: [facility] 04-06-2025 10:37-0400 Body weight 73.[address] Satya Dove MD Work Phone: [facility] 03-19-2025 11:11-0400 Body height 172.7 cm Gualberto Fried MD Work Phone: [facility] 03-19-2025 11:11-0400 Body mass index (BMI) [Ratio] 25.24 kg/m2 Gualberto Fried MD Work Phone: [facility] 03-19-2025 11:11-0400 Body temperature 98.4 [degF] Gualberto Fried MD Work Phone: [facility] 03-19-2025 11:11-0400 Body weight 75.3 kg Gualberto Fried MD Work Phone: [facility] 03-19-2025 11:11-0400 Diastolic blood pressure 74 mm[Hg] Gualberto Fried MD Work Phone: [facility] 03-19-2025 11:11-0400 Heart rate 51 /min Gualberto Fried MD Work Phone: [facility] 03-19-2025 11:11-0400 Respiratory rate 16 /min Gualberto Fried MD Work Phone: [facility] 03-19-2025 11:11-0400 SaO2% (BldA) [Mass fraction] 100 % Gualberto Fried MD Work Phone: [facility] 03-19-2025 11:11-0400 Systolic blood pressure 166 mm[Hg] Gualberto Fried MD Work Phone: [facility] 03-05-2025 08:00-0400 Body height 170.2 cm Raul Nava MD, PhD Work Phone: [facility] 03-05-2025 08:00-0400 Body mass index (BMI) [Ratio] 26.31 kg/m2 Raul Nava MD, PhD Work Phone: [facility] 03-05-2025 08:00-0400 Body temperature 98.01 [degF] Raul Nava MD, PhD Work Phone: [phone] [address] [place] [address] 03-05-2025 08:00-0400 Body weight 76.2 kg Raul Nava MD, PhD Work Phone: [phone] [address] [place] [address] 03-05-2025 08:00-0400 Diastolic blood pressure 89 mm[Hg] Raul Nava MD, PhD Work Phone: [phone] [address] 03-05-2025 08:00-0400 Heart rate 56 /min Raul Nava MD, PhD Work Phone: [facility] 03-05-2025 08:00-0400 Respiratory rate 16 /min Raul Nava MD, PhD Work Phone: [facility] 03-05-2025 08:00-0400 SaO2% (BldA) [Mass fraction] 99 % Raul Nava MD, PhD Work Phone: [facility] 03-05-2025 08:00-0400 Systolic blood pressure 189 mm[Hg] Raul Nava MD, PhD Work Phone: [facility] 02-27-2025 09:19-0400 Body height 172.[address] Satya Dove MD Work Phone: [facility] 02-27-2025 09:15-0400 Body mass index (BMI) [Ratio] 24.5 kg/m2 Dr. Satya Dove MD Work Phone: [facility] 02-27-2025 09:15-0400 Body temperature 98.2 [degF] Dr. Satya Dove MD Work Phone: [facility] 02-27-2025 09:15-0400 Body weight 73.[address] Satya Dove MD Work Phone: [facility] 02-27-2025 09:15-0400 Diastolic blood pressure 77 mm[Hg] Dr. Satya Dove MD Work Phone: [phone] [place] [address] 02-27-2025 09:15-0400 Heart rate 56 /min Dr. Satya Dove MD Work Phone: [phone] [place] [address] 02-27-2025 09:15-0400 Respiratory rate 16 /min Dr. Satya Dove MD Work Phone: [phone] [place] [address] 02-27-2025 09:15-0400 SaO2% (BldA) [Mass fraction] 100 % Dr. Satya Dove MD Work Phone: [facility] 02-27-2025 09:15-0400 Systolic blood pressure 160 mm[Hg] Dr. Satya Dove MD Work Phone: [facility] 01-26-2025 11:15-0400 Diastolic blood pressure 75 mm[Hg] Dr. Satya Dove MD Work Phone: [facility] 01-26-2025 11:15-0400 Heart rate 47 /min Dr. Satya Dove MD Work Phone: [facility] 01-26-2025 11:15-0400 Respiratory rate 18 /min Dr. Satya Dove MD Work Phone: [facility] 01-26-2025 11:15-0400 SaO2% (BldA) [Mass fraction] 96 % Dr. Satya Dove MD Work Phone: [facility] 01-26-2025 11:15-0400 Systolic blood pressure 129 mm[Hg] Dr. Satya Dove MD Work Phone: [facility] 01-26-2025 10:41-0400 Body temperature 97.1 [degF] Dr. Satya Dove MD Work Phone: [facility] 01-26-2025 08:08-0400 Body height 172.[address] Satya Dove MD Work Phone: [facility] 01-26-2025 08:08-0400 Body mass index (BMI) [Ratio] 25.1 kg/m2 Dr. Satya Dove MD Work Phone: [facility] 01-26-2025 08:08-0400 Body weight [address] Satya Dove MD Work Phone: [facility] 04-04-2024 13:58-0400 Diastolic blood pressure 73 mm[Hg] Sudheer Paez DO Work Phone: [facility] 04-04-2024 13:58-0400 Heart rate 63 /min Sudheer Paez DO Work Phone: [facility] 04-04-2024 13:58-0400 Systolic blood pressure 163 mm[Hg] Sudheer Paez DO Work Phone: [facility] 04-17-2023 07:25-0400 Body temperature 97.5 [degF] Dr. Satya Dove Work Phone: [facility] 04-17-2023 07:25-0400 Diastolic blood pressure 64 mm[Hg] Dr. Satya Dove Work Phone: [facility] 04-17-2023 07:25-0400 Heart rate 45 /min Dr. Satya Dove Work Phone: [facility] 04-17-2023 07:25-0400 Respiratory rate 16 /min Dr. Satya Dove Work Phone: [facility] 04-17-2023 07:25-0400 SaO2% (BldA) [Mass fraction] 100 % Dr. Satya Dove Work Phone: [facility] 04-17-2023 07:25-0400 Systolic blood pressure 106 mm[Hg] Dr. Satya Dove Work Phone: [facility] 04-17-2023 06:09-0400 Body height 172.[address] Satya Dove Work Phone: [facility] 04-17-2023 06:09-0400 Body mass index (BMI) [Ratio] 24.3 kg/m2 Dr. Satya Dove Work Phone: [facility] 04-17-2023 06:09-0400 Body weight 72.[address] Satya Dove Work Phone: [facility] 03-07-2023 09:41-0400 Body height 172.[address] Satya Dove Work Phone: [facility] 03-07-2023 09:41-0400 Body mass index (BMI) [Ratio] 25.8 kg/m2 Dr. Satya Dove Work Phone: [facility] [facility] 03-[facility]-2023 09:41-0400 Body weight 77.[address] Satya Dove Work Phone: [facility] Encounters Encounter Date Encounter Type Care Provider Facility Start: 04-22-[address] Elizabeth [facility]AZARRadiation Oncology Start: 04-22-2025 End: 04-22-[address] Satya Dove MD Work Phone: [facility] Start: 04-22-2025 End: 04-22-[address] Elizabeth Sullivan DO [facility] Work Phone: Start: 04-20-2025 ambulatory Satya Dove [facility] y:[facility] Start: 04-17-[address] Elizabeth SALAZARSpeech Therapy Work Phone: Start: 04-17-2025 ambulatory Elizabeth Sullivan Facility: [facility] Start: 04-15-[address] Elizabeth [facility]AZ[facility]adiation Oncology Start: 04-15-2025 End: 04-15-[address] Elizabeth Sullivan [facility] Work Phone: Start: 04-15-2025 End: 04-15-[address] Satya Dove MD Work Phone: [facility] Start: 04-08-[address] [facility] Start: 04-08-2025 End: 04-08-[address] Elizabeth Sullivan [facility] Work Phone: Start: 04-08-2025 End: 04-08-[address] Satya Dove MD Work Phone: [facility] Start: 04-06-2025 ambulatory Elizabeth [place] Facility: [facility] Start: 04-06-2025 Non-patient / Non-visit Dr. Reyes [facility] Start: 04-01-2025 ambulatory [facility] Facility: [facility] Start: 04-01-2025 Non-patient / [facility] Start[facility] 03-31-2025 ambulatory [facility] Facility: [facility] Start: 03-31-2025 Non-patient / [facility] Start: 03-27-2025 ambulatory [facility] Facility: [facility] Start: 03-27-2025 Non-patient / [facility] Start: 03-19-2025 End: 03-19-2025 Office consultation new/estab patient 60 min Gualberto Fried MD Work Phone: [facility] Comment on above: Malignant neoplasm o f larynx, unspecified (Primary Dx); Toxic effect of other tobacco and nicotine, accidental (unintentional), initial encounter; Dysphonia Start: 03-19-2025 ambulatory GUALBERTO FRIED Facility :[facility] Start: 03-11-2025 End: 03-11-[address] Satya Dove MD Work Phone: [facility] Work Phone: Start: 03-11-2025 End: 03-11-[address] Hari Keith MD -[facility] Work Phone: Start: 03-11-2025 End: 03-11-2025 ambulatory Hari Keith Facility:[facility] Start: 03-05-2025 End: 03-05-2025 Office outpatient new 60 minutes Raul Nava MD, PhD Work Phone: Department of Otolaryngology Comment on above: Malignant neoplasm o f larynx, unspecified (Primary Dx) Start: 03-05-2025 ambulatory ELIZABETH SULLIVAN [facility] Start: 02-27-2025 End: 02-27-[address] Elizabeth Sullivan DO -[place] [facility] Work Phone: Start: 02-27-2025 End: 02-27-2025 ambulatory Satya Dove [place] Start: 02-17-2025 End: 02-17-[address] Satya Dove MD Work Phone: [facility] Work Phone: Start: 02-17-2025 End: 02-17-[address] Hari Keith MD -[place] [facility] Start: 02-17-2025 End: 02-17-2025 ambulatory Satya Dove Facility:[facility] Start: 01-26-2025 End: 01-26-2025 Admission to same day surgery center Dr. Hari Keith MD [facility] Start: 01-26-2025 End: 01-26-[address] Satya Dove MD Work Phone: [facility] Work Phone: Start: 06-20-2024 End: 06-20-2024 Emergency department patient visit Satya Dove Facility:[facility] Start: 04-04-2024 End: 04-04-2024 ambulatory SATYA ROGEL Facility:[facility] Start: 04-04-2024 End: 04-04-2024 Patient encounter procedure Sudheer Paez DO Work Phone: Neurology [facility] Comment on above: Cognitive impairment , mild, so stated (Primary Dx) Start: 04-03-2024 Orders Only Sudheer bro DO Work Phone: Neurology Comment on above: Mild cognitive impai rment (Primary Dx) Start: 03-24-2024 Telephone encounter Sudheer carlsno DO Work Phone: Neurology Start: 12-28-2023 End: 12-28-2023 ambulatory [facility] Work Phone: Start: 12-28-2023 End: 12-28-2023 Patient encounter procedure [facility] Work Phone: Start: 07-05-2023 End: 07-05-[address] Satya Dove Work Phone: [facility] Work Phone: Start: 07-05-2023 End: 07-05-[address] Satya Dove Work Phone: [facility] Start: 04-17-2023 Non-patient / Non-visit Dr. Azul Dove Work Phone: [facility] Start: 04-17-2023 End: 04-17-2023 Admission to same day surgery center Dr. Satya Dove Work Phone: [facility] Work Phone: Start: 04-17-2023 End: 04-17-[address] Satya Dove Work Phone: [facility] Work Phone: Start: 03-20-2023 End: 03-20-[address] Satya Dove Work Phone: [facility] Work Phone: Start: 03-20-2023 End: 03-20-[address] Satya Dove Work Phone: [facility] Start: 03-07-2023 Non-patient / Non-visit Dr. Azul Dove Work Phone: [facility] Start: 02-23-2023 End: 02-23-[address] Satya Dove Work Phone: [facility] Start: 02-13-2023 End: 02-13-[address] Satya Dove Work Phone: [facility] Start: 02-16-2022 End: 02-16-2022 Patient encounter procedure [facility] Start: 02-08-2022 End: 02-08-2022 [facility] Date Procedure Procedure Detail Performing Clinician Start: 03-11-2025 CT of soft tissues o f neck with contrast Dr. Satya Dove MD Work Phone: Start: 02-17-2025 [facility] Dr. Satya Dove MD Work Phone: Start: 01-26-[address] Emma Dove MD Work Phone: Start: 12-28-2023 X-ray of both feet Start: 04-17-[address] Satya calderon Work Phone: Start: 03-20-2023 CT of soft tissues o f neck with contrast Dr. Satya Dove Work Phone: Start: 02-23-[address] Satya calderon Work Phone: Start: 02-08-2022 End: 02-08-2022 Bacteria identification test Start: 09-17-2017 Colonoscopy Sudheer Me aldo BRANDT Work Phone: Plan of Treatment Date Care Activity Detail Author Start: 2036 RSV VACCINE (1 - 1-d ose 75+ series) RSV VACCINE (1 - 1-dose 75+ series) [facility] Start: 06-08-2025 Influenza vaccination INFLUENZ A VACCINE (Season Ended) [facility] Start: 03-31-2025 End: 03-31-2025 Patient encounter procedure 03/31/2025 9:00 AM EDT Office Visit Department of Radiation Oncology at [facility] [address] [place] [address] Dae Bush MD, PhD [address] [place] [address] Department of Radiation Oncology at [facility] Start: 03-19-2025 End: 03-19-2025 Rehab Services Visit [facility] Start: 02-27-2025 Patient referral [facility] Work Phone: Start: 01-26-2025 Anes esoph thyrd lar ynx trach & lymph neck 1yr ANESTH NECK ORGAN 1YR/> [facility] Start: 01-26-2025 Laryngoscopy w/biops y microscope/telescope LARYNGOSCOPY W/BX & OP SCOPE [facility] Start: 01-26-2025 Ambulation without limitation [facility] Start: 01-26-2025 Elevation of head of bed [facility] Start: 01-26-2025 Medical regimen orde rs management [facility] Start: 01-26-2025 Medication education [facility] Start: 01-26-2025 Patient discharge [facility] Start: 01-26-2025 Procedure discontinued [facility] Start: 01-26-2025 Taking patient vital signs [facility] Start: 01-26-2025 Vital signs measurements [facility] Start: 06-08-2024 COVID-19 VACCINE ( season) COVID-19 VACCINE ( season) [facility] Start: 06-08-2024 Influenza vaccination Influenz a Vaccine (Season Ended) [facility] Start: 04-04-2024 End: 07-04-2024 Cobalamin (Vitamin B12) [Mass/volume] in Serum or Plasma VITAMIN B12 Lab Routine Cognitive impairment, mild, so stated Expected: 04/04/2024, Expires: 07/04/2024 [facility] Comment on above: Expected: 04/04/2024 , Expires: 07/04/2024 Start: 04-04-2024 End: 07-04-2024 Thyrotropin [Units/volume] in Serum or Plasma THYROID STIMULATING HORMONE Lab Routine Cognitive impairment, mild, so stated Expected: 04/04/2024, Expires: 07/04/2024 [facility] Work Phone: Comment on above: Expected: 04/04/2024 , Expires: 07/04/2024 Start: 04-04-2024 End: 04-04-2024 Patient encounter procedure 04/04/2024 1:00 PM EDT Office Visit Neurology [facility] [address] [place] [address] Sudheer Paez DO [address] [place] [address] FORGETTING THINGS / PERSONALITY CHANGES / MEMORY PROBLEMS Neurology [facility] Comment on above: FORGETTING THINGS / PERSONALITY CHANGES / MEMORY PROBLEMS Start: 03-20-2024 Tetanus vaccination TETANUS [facility] Start: 03-20-2024 Urine microalbumin profile DTaP,Tdap,Td Vaccine (2 - Td or Tdap) [facility] Start: 10-08-2023 Behavioral Health Screening Behavioral Health Screening [facility] Start: 06-08-2023 Covid-19 Vaccine ( season) Covid-19 Vaccine () [facility] Start: 04-17-2023 Colonoscopy w/biopsy single/multiple COLONOSCOPY AND BIOPSY [facility] Start: 04-17-2023 Patient discharge [facility] Start: 09-17-2022 Screening for malign ant neoplasm of colon [facility] Start: 2021 RSV Vaccine (1 - 1-d ose 60+ series) RSV Vaccine (1 - 1-dose 60+ series) [facility] Start: 09-17-2018 Screening for malign ant neoplasm of colon COLORECTAL CANCER SCREENING DISCUSSION [facility] Start: 2016 Prostate specific antigen measurement Prostate Cancer Screening Discussion [facility] Start: 2011 Screening for malign ant neoplasm of lung LUNG CANCER SCREENING [facility] Start: 2011 Shingrix Vaccine (1 of 2) Shingrix Vaccine (1 of 2) [facility] Start: 2011 Zoster vaccine hzv l arina for subcutaneous use ZOSTER (SHINGLES) VACCINE (1 of 2) [facility] Start: 06-07-2008 Diabetes Screening Diabetes Screenin g [facility] Start: 2006 Screening for malign ant neoplasm of colon [facility] Start: 2001 Lipid panel LIPID SCREENING [facility] Start: 1996 Lipid panel Lipid Screening [facility] Start: 1980 Pneumococcal vaccination PNEUMOCOCCAL VACCINE SERIES (1 of 2 - PCV) [facility] Start: 1980 Urine microalbumin profile DTaP,Tdap,Td Vaccine (1 - Tdap) [facility] Start: 1979 Hepatitis C screening Hepatitis C Sc reening [facility] Start: 1979 HIV screening HIV Screening [facility] Start: 1976 HIV screening HIV SCREENING DISCUSSION [facility] Start: 1967 Pneumococcal vaccination Pneumococcal Vaccine (1 of 2 - PCV) [facility] Start: 1961 Hepatitis C screening HEPATITI S C VIRUS SCREENING [facility] BACH SCREENING TEST BACH SCREENI NG TEST Procedures Routine Mild cognitive impairment Ordered: 04/03/2024 [facility] Work Phone: Comment on above: Ordered: 04/03/2024 Colonoscopy [facility] Laryngoscopy flx/rgd telescopic w/stroboscopy MI LARYNGOSCOPY FLX/RGD TELESCOPIC W/STROBOSCOPY MI Charge Routine Malignant neoplasm of larynx, unspecified Toxic effect of other tobacco and nicotine, accidental (unintentional), initial encounter Dysphonia Ordered: 03/19/2025 [facility] Comment on above: Ordered: 03/19/2025 End: 05-04-2025 MR Brain WO contrast MRI BRAIN W QUANT WO IVCON Radiology Routine Cognitive impairment, mild, so stated 1 Occurrences starting 04/04/2024 until 05/04/2025 [facility] Comment on above: 1 Occurrences starti ng 04/04/2024 until 05/04/2025 End: 05-04-2025 MR Unspecified body region 3D post processing MRI 3D POST PROCESSING Radiology Routine Cognitive impairment, mild, so stated 1 Occurrences starting 04/04/2024 until 05/04/2025 [facility] Comment on above: 1 Occurrences starti ng 04/04/2024 until 05/04/2025 Patient referral [facility] Work Phone: Payers Date Payer Category Payer Managed Care (unspecified) [employer] PPO POS [id number] 2024 Self-pay [id number] 2003 Unknown [employer]SEPH [employer] BS FEP PPO [id number] 2003-Present [phone] [address] [place] [address] PPO [id number] 2003 Unknown [id number] 1961 Unknown [id number]. 2.594 1961 Unknown [id number] [id number]. 2.594 1961 Unknown [id number] [id number]. 2.594 1961 Unknown [id number] 2.16.840.1.101939.3.579. 2.594 Unknown [id number] 2.16.840.1.482797.3.579. 2.462 Unknown [id number] 2.16.840.1.426307.3.579. 2.462 Unknown [id number] 2.16.840.1.465980.3.579. 2.462 Unknown [id number] 2.16.840.1.880314.3.579. 2.462 Unknown [id number] 2.16.840.1.871614.3.579. 2.462 Unknown [id number] 2.16.840.1.803486.3.579. 2.462 Unknown [id number] 2.16.840.1.091117.3.579. 2.462 Unknown [id number] 2.16.840.1.879272.3.579. 2.462 Unknown [id number] 2.16.840.1.011951.3.579. 2.462 Unknown [id number] 2.16.840.1.396276.3.579. 2.462 Unknown [id number] 2.16840.1.352749.3.579. 2.462 Unknown [id number] [id number]. 2.462 Unknown [id number] [id number]. 2.462 Social History Date Type Detail Facility Start: 04-30-2021 End: 04-13-2023 Tobacco smoking status KSIS Unknown if ever smoked [facility] Start: 1960 Sex Assigned At Male [facility] Start: 09-17-2017 End: 02-27-2025 Tobacco smoking status NHIS Smokes tobacco daily [facility] Start: 10-08-1984 History of tobacco use Cigarette Smo ker [facility] Start: 09-17-2017 End: 03-19-2025 Cigarettes smoked current (pack per day) - Reported 0.8 [facility] Start: 09-17-2017 End: 03-05-2025 Tobacco use and exposure Smokeless tobacco non-user [facility] Start: 09-17-2017 End: 04-04-2024 Alcohol intake Current non-drinker of alcohol (finding) [facility] Start: 04-12-2018 End: 03-19-2025 Tobacco use panel [facility] Start: 1960 Sex Assigned At Not on file [facility] National Score (1-10 0), lower number is lower risk 41 [facility] Start: 01-26-2025 End: 02-18-2025 Sex Male (finding) [facility] Start: 03-05-2025 End: 03-19-2025 Alcoholic beverage intake Ex-drinker (finding) [facility] Start: 03-05-2025 Alcohol Comment recovering alc ohol for 18 years [facility] Start: 04-17-2025 Tobacco smoking stat us NHIS Ex-smoker (finding) [facility] Goals Date Patient Goal Desired Activity /State Mental Status Date Assessment Result Facility 01-26-2025 Cognitive function Voice/Name [facility] Work Phone: 04-17-2023 Cognitive function Voice/Name [facility] Work Phone: Clinical Notes 04-17-2023 to 03-19-2025 Gualberto Fried MD - 03/19/2025 11:20 AM EDTPatient Yfn Garcia RN - 03/05/2025 8:00 AM Victoriano Cooney PA-C - 03/05/2025 8:00 AM EDTPatient Instructions Note Date & Type Note Facility 03-19-2025 History of Present illness Narrative Images from the original note were not included. HPI: I had the pleasure of seeing Dominik Emma Valentine today on 03/18/2025, a 64 y.o. sent to us at the subspecialty Laryngology clinic with a primary complaint of dysphonia -no special voice needs - he is retired. his is a 64 y.o. 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 On laryngoscopy the lesion is on the left VC and extends into the ventricle, extends to the anterior commissure, no involvement of the right vocal cord. He reports a 2 year h/o hoarseness which worsened this year and led to his work up. He has seen a dentist regularly. Current smoker of less than 1/2 pack daily. 40year smoking history of 1ppd and is trying to quit now without assistance. He presents today for evaluation of candidacy for laser treatment for disease management. Reviewed records: Current smoker of less than 1/2 pack daily. 40year smoking history of 1ppd and is trying to quit now without assistance. Elijah 03/05/[address] 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 PET 02/17/25. On laryngoscopy the lesion is on the left VC and extends into the ventricle, extends tot he anterior commissure, no involvement of the right vocal cord. PET shows no metastatic disease, no lymphadenopathy. He saw Dr. Elizabeth Sullivan in radiation in [place] and plans to et dental clearance and placed referrals to nutrition and STAFF SCIENTIST. He has CT neck scheduled 03/12/25. He presents to clinic today for evaluation for minimally invasive surgery vs radiation. He is not interested in laryngectomy. Outside Slides: [id number] (01/26/25) Left true vocal cord, neoplasm, biopsy: Invasive squamous cell carcinoma. I have reviewed the patient's past medical history, social history, medication and allergy list, and relevant family hx as noted in the EPIC system. No pertinent family history. ROS: Reviewed - see scanned form or MA note in I[facility]IS from today's date. Pertinent positives and negatives from a complete ROS noted. PE: Findings: Body mass index is 25.24 kg/m . Mallampati 1; full cervical extension and palpable neck landmarks. Dentition mostly intact with question of some dental disease. Voice is asthenic and strained and mildly raspy Vitals: 03/19/25 1111 BP: 166/74 Pulse: 51 Resp: 16 Temp: 98.4 F (36.9 C) SpO2: 100% General: Well-developed, well-nourished Communication and Voice: [id number] Respiratory Respiratory effort: Equal inspiration and expiration without stridor Cardiovascular Peripheral Vascular: Warm extremities Eyes: No nystagmus with equal extraocular motion bilaterally Neuro/Psych/Balance: Patient is alert and appropriate; Appropriate mood and affect; Gait is intact with no imbalance Head and Face Inspection: Normocephalic and atraumatic without mass or lesion Palpation: Facial skeleton intact without palpable abnormality Salivary Glands: No mass or tenderness Facial Strength: Facial motility symmetric and full bilaterally ENT Pinna: External ear intact and fully developed External nose: No scar or anatomic deformity Anterior Rhinoscopy: Septum intact. No edema, polyp, or rhinorrhea. Lips, Teeth, and gums: Mucosa intact and viable; dentition intact Oral cavity/oropharynx: No erythema or exudate with non-obstructive tonsils Neck Neck and Trachea: Midline trachea without mass or lesion Thyroid: No mass or nodularity Lymphatics: No lymphadenopathy Larynx See procedure note Summary: left vocal fold is thickened with irregular surface lesion involving entire cord, possibly sparing the anterior commissure. Mucosal wave essentially absent on left and mildly reduced on right. Right medial infraglottic edge mid-fold thickening. No obvious NBI findings but thin leukoplakia covers both sides. PROCEDURE NOTE Preoperative diagnosis: hoarseness Postoperative diagnosis: same Procedure: Flexible laryngoscopy with stroboscopy ([id number]) Surgeon: Gualberto Fried M.D., Janie Hannah, STAFF SCIENTIST-CCC Anesthesia: Topical lidocaine and Afrin Complications: None Condition is stable throughout exam Indications and consent: The patient presents to the clinic with hoarseness. Visualization of the vocal cords was incomplete without the benefit of stroboscopy. All the risks, benefits, and potential complications were reviewed with the patient preoperatively and informed verbal consent was obtained. Procedure: The patient was seated upright in the exam chair. Topical lidocaine and Afrin were applied to the nasal cavity. After adequate anesthesia had occurred, the flexible telescope was passed into the nasal cavity. The nasopharynx was patent without mass or lesion. The scope was passed behind the soft palate and directed toward the base of tongue. The base of tongue was visualized and was symmetric with no apparent masses or abnormal appearing tissue. There were no signs of a mass or pooling of secretions in the piriform sinuses. The supraglottic structures were normal. The true vocal cords are mobile. The medial edges are irregular on left and at right mid-fold. Glottic closure was irregular. Periodicity present. The mucosal wave and amplitude were as above. There is moderate interarytenoid pachydermia and post cricoid edema. The mucosa appears normal. The laryngoscope was then slowly withdrawn and the patient tolerated the procedure well. There were no complications or blood loss. Please see any STAFF SCIENTIST notes from today's date for further details and pictures. TOLERANCE as judged by MD (1-10 WITH 1 BEING BEST: 2 Gualberto Fried M.D. Attending Attestation: I have personally reviewed all available hand-carried written documentation provided by the patient. Significant positives and negatives are as noted above. IMPRESSION: ICD-10-CM 1. Malignant neoplasm of larynx, unspecified C32.9 AMB REFERRAL TO RADIATION ONCOLOGY 2. Toxic effect of other tobacco and nicotine, accidental (unintentional), initial encounter T65.291A AMB REFERRAL TO RADIATION ONCOLOGY 3. Dysphonia R49.0 PLAN: Disease may not be involving right cord but it's unclear if the anterior commissure is spared- disease definitely abuts if not involving it. He is open to RT or endoscopic resection, and I think his voice outcomes would be better with RT given that the AC would like need to be included (as well as the uncertainty around the right mid-fold lesion) Recommended evaluation with rad onc here at [facility] for planning; he will likely get treatment itself locally in [place] Smoking cessation discussed at length documented in this encounter [facility] 03-19-2025 Instructions Gualberto Fried MD - 03/19/2025 11:20 AM EDT Images from the original note were not included. Quitting Smoking -As a first step, make your home a non-smoking home (the ENTIRE home). After declaring it a non-smoking home and removing all ashtrays, etc, rent a bobbin cleaner hand and clean the furniture and carpets. This will help you with several things: 1)Other people will never light up without thinking about it in a home that doesn't smell like smoke 2)You may regain some of your sense of smell and taste, even before you quit altogether 3)Grandchildren and other visitors to the home won't be harmed by the effects of third-hand smoke (see more on this below) 4)You may smoke less without even trying, especially as the months get colder. -Third-hand smoke: there is good evidence that third-hand smoke, or the smoke particles in our clothes, hair, furniture, cars, and carpets, can be damaging. These particles actually appear to become MORE harmful over time. This is why cleaning the carpets and furniture after the house becomes smoke-free is important. -If you smoke, get yourself a smoking jacket, or some kind of hooded sweatshirt that you can cover your clothes and hair with. Then when you're done smoking, take it off, come inside and wash your hands, and you will cause less harm to any non-smokers around you. This is especially important if you have children in the house or if your spouse is trying to quit smoking or is suffering from any illnesses that are worsened by smoke exposure. -Most people quit many times unsuccessfully before quitting for good. An unsuccessful quit attempt does NOT mean you are less likely to quit - in fact, it puts you closer to the final successful quit attempt. -Set a quit date. Pick a date that has some importance to you, like an anniversary or someone's birthday, or even the date of something tragic if that helps remind you why you're quitting. Talk about the quit date, and plan around it. Plan for it to be successful. (For instance, you might plan a vacation with a friend who is a non-smoker, since you will be a non-smoker too after that date). Don't keep any smoking-related things like ashtrays or old packs of cigarettes around after that date. -You may choose to try out some e-cigarettes or vapor pens ahead of time, and purchase one to keep handy in case you have a craving. This could keep you from smoking that one cigarette that leads you back to being a smoker. You may have heard that vaping is dangerous, and while it's true that we don't know all that we need to about its risks yet, what we do know tells us that a cigarette is far more dangerous. 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 (by about 300 times!) Try one without a nicotine cartridge so you don't have to worry about going through the nicotine withdrawal again (nicotine withdrawal usually lasts about 72 hours). A book that helps many people is The Easy Way to Stop Smoking by Conor Delgado. Conor Delgado's Easy Way To Stop Smoking Aug 24, 2011 by Conor Delgado More Buying Choices $3.99(205 used & new offers) Another book that relates to smoking cessation (and to other habits as well) is The Power of Habit by David Reinoso. documented in this encounter [facility] 03-12-2025 Radiology Diagnostic study note [facility] Imaging Services [address], [place] [address] Soft Tissue Neck WITH Contrast MR#: [id number] Acct: [id number] Name: DOMINIK VALENTINE Rep #: [id number] : 1960 M 64 From: Helder Escamilla MD PCP: Dr. Satya Dove MD Status: RE G CLI Study:Soft Tissue Neck WITH Contrast Date of Exam: 03/11/25 Exam# [id number] Ordering Dr: Lamar Keith MD PROCEDURE: SOFT TISSUE NECK WITH CONTRAST 03/11/2025 REASON FOR EXAM: LARYNGEAL CARCINOMA TECHNIQUE: CT of the soft tissues of the neck from the orbits to the upper mediastinum withintravenous contrast. CONTRAST: Isovue 370 VOLUME: 100 mL One or more dose reduction techniques were used (e.g., Automated exposure control, adjustment of the mA and/or kV according to patient size, use of iterative reconstruction technique). RADIATION DOSE SUMMARY: CTDlvol: 16.52 mGy DLP: 540.60 mGycm COMPARISON: CT soft tissue neck with IV contrast, 03/20/2023. FINDINGS: Airway: The oropharynx, nasopharynx and hypopharynx are normal. The epiglottis,aryepiglottic folds, pyriform sinuses, glottis and subglottic airway appear unremarkable. There are laryngeal cartilages are normal. Salivary glands: The major salivary glands are normal. Lymph nodes: There is no cervical lymphadenopathy. Thyroid: Normal. Vasculature: There is calcific vascular disease of both carotid bifurcations without significant stenosis. Orbits: There is bilateral optic nerve head drusen. Paranasal sinuses and mastoids: There is mucoperiosteal thickening of the frontal sinuses, the ethmoidal air cells, the maxillary sinuses and the sphenoid sinuses. The mastoid air cells and the external, middle and inner ears appear unremarkable. Lung apices: Normal. Upper mediastinum: There is calcific vascular disease of the aortic arch in the origin of the brachiocephalic artery, the left common carotid artery and the left subclavian artery, without significant stenosis. Bones: There is degenerative disc disease, C2-3 through C6-7 with narrowing of the disc spaces and marginal osteophytes. Visualized intraorbital contents: There is calcific vascular disease of the intracranial portion of both internal carotid arteries in the left vertebral artery. The brain parenchyma is unremarkable. CT/Soft Tissue Neck WITH Contrast IMPRESSION: 1. There are no findings to suggest laryngeal carcinoma. 2. Other findings as noted. Reading Location: [id number] CC: Dr. Satya Dove MD; Dr. 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 Please review outside slides. Please add HPV/p16 testing if indicated and not previously completed. Preoperative Diagnosis: Dysphonia. [facility] Comment on above: Performed By: #### S URGP #### [facility] (DEFAULT) [address] [place] [id number] 03-05-2025 History of Present illness Narrative Pt arrived to clinic ambulatory accompanied by spouse. Pt is here to establish plan of care to evaluate. Pt reports voice quality changes that started 2 years ago. Pt does smoke states he is ready to quit. Images from the original note were not included. Chief Complaint: Left vocal cord SCC HPI:This patient is a 64 y[address] Dr[address] 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 PET 02/17/25. On laryngoscopy the lesion is on the left VC and extends into the ventricle, extends tot he anterior commissure, no involvement of the right vocal cord. PET shows no metastatic disease, no lymphadenopathy. He saw Dr. Elizabeth Sullivan in radiation in [place] and plans to et dental clearance and placed referrals to nutrition and STAFF SCIENTIST. He has CT neck scheduled 03/12/25. He presents to clinic today for evaluation for minimally invasive surgery vs radiation. He is not interested in laryngectomy. Pt denies odynophagia, otalgia, dsyphagia, weight loss. He reports a 2 year h/o hoarseness which worsened this year and led to his work up. He has seen a dentist regularly . Current smoker of less than 1/2 pack daily. 40year smoking history of 1ppd and is trying to quit now without assistance. He presents to clinic with his significant other. He was having memory issues when he was on higher dose medication for his HTN but is doing well since adjusting to a lower dose. Past Medical History Past Medical History: Diagnosis Date Arthritis Esophageal reflux Hypertension IBS (irritable bowel syndrome) Mental disorder Snoring Past Surgical History Past Surgical History: Procedure Laterality Date ARTHROSCOPY KNEE Left FRACTURE TX Tibial fracture SEPTOPLASTY SHOULDER REPLACEMENT Left TONSILLECTOMY Social History Social History Socioeconomic History Marital status: Spouse name: Not on file Number of children: Not on file Years of education: Not on file Highest education level: Not on file Occupational History Not on file Tobacco Use Smoking status: Every Day Types: Cigarettes Smokeless tobacco: Never Substance and Sexual Activity Alcohol use: Not on file Drug use: Not on file Sexual activity: Not on file Other Topics Concern Not on file Social History Narrative Not on file Social Drivers of Health Financial Resource Strain: Not on file Food Insecurity: Not on file Transportation Needs: Not on file Physical Activity: Not on file Stress: Not on file Social Connections: Not on file Personal Safety: Not on file Housing Stability: Not on file Family History No family history on file. Medications: Current Outpatient Medications Medication Sig Dispense Refill fluticasone 50 MCG/ACT Suspension nasal spray USE 1 spray IN each nostril twice daily, when improved then once daily Pantoprazole [address] tablet DR Take 1 tablet by mouth daily. escitalopram 20 MG tablet Take 1 tablet by mouth daily. Metoprolol 50 MG tab regular release TAKE 1/2 (ONE-HALF) OF A TABLET BY MOUTH IN THE MORNING AND TAKE 1 TABLET IN THE EVENING No current facility-administered medications for this visit. Allergies: Patient has no allergy information on record. Immunizations: There is no immunization history on file for this patient. Review of Systems: Constitutional: Negative for fever, weight loss and weight gain. HENT: See HPI Cardiovascular: Negative for chest pain and dyspnea on exertion (Can climb up 2 floors). Respiratory: Is not experiencing shortness of breath. Gastrointestinal: Negative for nausea and vomiting. Neurological: Negative for headaches. Psychiatric: The patient is not nervous/anxious. Musculoskeletal: Denies muscle pain/weakness Heme/Lymph: Negative for lymph nodes, easy bruising Physical Exam Vital Signs: BP 189/89 Pulse 56 Temp 98 F (36.7 C) (Temporal) Resp 16 Ht 1.702 m (5' 7) Wt 76.2 kg (168 lb) SpO2 99% BMI 26.31 kg/m Smoking Status Every Day General: Well-developed, well-nourished. No distress. Communication and Voice: Clear pitch and clarity Respiratory Respiratory effort: Equal inspiration and expiration without stridor Cardiovascular Peripheral Vascular: Warm extremities with equal pulses Neuro: Patient oriented to person, place, and time; Appropriate mood and affect; Gait is intact with no imbalance; Cranial nerves II-XII are intact Head and Face Inspection: Normocephalic and atraumatic without mass or lesion Palpation: Facial skeleton intact without bony stepoffs Facial Strength: Facial motility symmetric and full bilaterally Eyes: PERRLA. No nystagmus with normal extraocular motion bilaterally ENT Pinna: External ear intact and fully developed External canal: Canal is patent with intact skin Tympanic Membrane: Clear External nose: No scar or anatomic deformity Internal Nose: Septum intact and midline. No edema, polyp, or rhinorrhea. TMJ: No pain to palpation with full mobility Salivary Glands: No mass or tenderness Lips: No lesion. Oral cavity: No mass or lesion. Oropharynx: No mass or lesion. Tonsillar fossa symmetric. Base of tongue soft without mass or induration. Nasopharynx: No mass or lesion with intact mucosa Hypopharynx: Intact mucosa without pooling of secretions Larynx: Full true vocal cord mobility bilaterally with granular lesion on the left extending posteriorly and superficial changes on the right cord as well. Neck Trachea: Midline trachea. Thyroid: No mass or nodularity. Lymphatics: No lymphadenopathy. Procedure: Flexible fiberoptic nasopharyngoscopy/laryngoscopy: Indications: Need for detailed exam, hyperactive gag reflex, inadequate mirror visualization. Clinician: Gualberto Cooney PA-C Procedure note/findings: After informed discussion of the risks, benefits, and alternatives fiberoptic nasopharyngoscopy and laryngoscopy was recommended for above indications, and the patient consented to this. Nasal cavities were topically anesthetized and decongested with 4% lidocaine solution mixed with Afrin after which a flexible scope was easily advanced without difficulty into the left and right nasal cavities as well as into the nasopharynx. Nasal cavities were intact without gross mass or lesion. Nasopharynx: posterior and lateral jean intact without lesion/mass, Fossa of Rosenmueller was intact bilaterally. The eustachian tube orifices were intact bilaterally and patent. Scope was now advanced distally. Visible oropharynx including lateral jean and tongue base was clear without lesion. Larynx and hypopharynx were examined. Larynx was intact with normal true vocal cord mobility bilaterally. Granular lesion on the left extending posteriorly and superficial changes on the right cord as well. Hypopharynx was clear without asymmetry. Airway was patent. The scope was then withdrawn and removed. He tolerated this well without complications. Data: Pathology 01/26/25 A. Left true vocal cord Invasive SCC PET 02/17/25 Impression/Plan: 64 y.o.male with biopsy proven SCC left that appears to be superficially spreading and involving the right vocal cord. Discussed the etiology and treatment of disease including local treatment with laser vs radiation therapy. Will place referral to Dr. Fried to evaluate. If he is not a good candidate for less invasive surgery then he will pursue radiation. He will continue to pursue his dental clearance and obtain CT in the meantime. Stressed importance of smoking cessation and pt expressed that he will stop. Attending Physician Attestation I independently interviewed, examined and formulated the medical decision making for Dominik Valentine Details of my interview, examination findings, and medical decision-making are confirmed and documented above which I have edited where appropriate. Raul Nava MD, PHD documented in this encounter [facility] 03-05-2025 Instructions Natasha Tapia RN - 03/05/2025 8:00 AM EDT Welcome to the Head and Neck Oncology Clinic. We are here to assist you through your care at the [facility] and [facility] [place]. Dr. Nava is your Head and Neck Surgical Oncology doctor. It is likely that you will have other cancer doctors to assist with your care. Dr. Nava's Primary Nurse is LOY Kaur. She can be reached at [phone]. Dr. Nava's hot mill tin roller is Elisa. She can be reached at [phone]. In order to care for you in the best possible way it is very important that you have a relationship with a primary care doctor. If you do not have one please establish care with on in your area or at [facility] at [phone] an [address] Nava will prescribe pain medication for patients who have surgery by him for up to 6 weeks after surgery. After that time frame we will assist you to get a referral to a pain clinic or you may call your primary care doctor. If you need refills on narcotic pain medication, you may be required to be seen by a provider before refills are given. Additionally, if you are from a [facility] you may need to fill your liquid narcotic pain medication before you leave [place]. If you are on narcotic pain medication, you could become constipated so please take your bowel medication (laxative) of choice when you start narcotic pain medication. Appointments- Dr. Nava makes every effort to run on time for your appointments therefore, if you are more than 30 minutes late unrelated to a scan or another appointment such as chemotherapy or radiation, your appointment will need to be rescheduled on another day. We appreciated your understanding. Here are the resources/team members available to you at [facility]: Speech and Language Pathologist (STAFF SCIENTIST)- may be asked by Dr. Nava to assist you with swallowing and speaking issues. They may see you during visits with Dr. Nava and in the hospital. Our STAFF SCIENTIST's and contact phone numbers are below: Minna Gil [phone] Marilyn Madrigal [phone] Sara Hoffman [phone] Janie Hannah [phone] Nestor Sierra [phone] Angela Licona [phone] Deedee Velasco [phone] Social Workers- ANGELINA Swenson and Nidhi Womack The community mental health social worker provides counseling and information regarding Advance Directives, End of Life issues, Social Security Disability, and referrals to support groups, and other community agencies. Please let Natasha or Dr. Nava know if you need these services. You may contact Stefani at [phone] and Nidhi [phone]. Housing: If you need assistance with hotels/housing please call [phone]. [facility] This is for patients who live in [facility] with a cancer diagnosis. The [facility] can provide rides to appointments, nutritional supplements and other services. It requires that your register for services by speaking with our head and neck social workers. If you are outside of [facility] the community mental health social worker can assist you with what is available in your county. Helping Others through Peer Experiences (H.O.P.E. Program)- Connects patients or caregivers to someone who has had a similar experience with cancer treatment. This is a great source of information and support to help guide you through the treatment process. Contact information: Phone #: [phone] Email: [email or web address] Website: [email or web address]-is able to assist you with your spiritual needs. If you wish to see the credit control manager, please let your oncology team know so that they can arrange this. Financial Services- financial counselor at can be reached at [phone]. Pediatric Neurologist-Currently an order must be placed by Dr. Nava to have to see the Pediatric Neurologist, Daniela Tracy or Nikki Pinedo. If you are already seeing Daniela or Nikki Justin, the direct phone number is [phone]. Pain Management Team is available. If Dr. Nava feels that you need this, a referral is made and your pain care is transferred to this group. Integrative Medicine therapy-these are complementary therapies used in addition to your cancer treatment to assist with anxiety, pain, nausea, poor sleep, and exhaustion. If you wish this additional therapy please contact [email or web address] to set up an appointment. You may also request this in the same way if you are inpatient or ask your nurse. THERE IS NO COST FOR THIS SERVICE. [facility]- It is conveniently located on the [facility] campus on the conference level (CL) of the [facility] and [place], next door to [facility] and near [facility]. To learn more about [facility], you can visit it on weekdays from 8 a.m. - 9 p.m. and on weekends from 9 a.m. - 6 p.m. Miscellaneous items: Family Medical Leave paperwork is available through your human resources department. Please call human resources and have them fax paperwork to LOY Kaur @ [phone]. [employer])- is a communication tool used through the Internet to communicate NON-urgent medical information with your [facility] doctors. You may ask questions, receive results and get notification of appointments. The results will be released to the [employer]) by your doctors and will only be results that do not need additional explanation. If a discussion of the result is important your doctor or nurse will call you. If you wish to sign up this must be done in person. Our medical receptionist assistant staff can assist you to get a password that can be changed when after you log on the first time. IMPORTANT REMINDER: This portal is only for NON-urgent information. If you have urgent information about your condition please call [phone]. THERE IS A NEW [employer] KAYLEIGH FOR SMART PHONES. USE YOUR KAYLEIGH STORE AND SEARCH [employer] download the kayleigh and follow the prompts to set up the [facility] format. Through this KAYLEIGH, you will be able to look at results, send messages and much more. Additionally, you are able to send pictures to providers, by going to message, tap attachments and upload picture. If you need to be a patient in the hospital: IF YOUR SURGERY DISCUSSED WITH DR. NAVA WILL REQUIRE YOU TO HAVE A TRACHEOSTOMY OR TOTAL LARYNGECTOMY (YOUR VOICEBOX REMOVED) PLEASE BRING YOUR PREFERRED WRITING METHOD WITH YOU unless prefer a pen and paper which will be provided. You will likely be unable to talk right after surgery. If you are on diabetic pill form treatment, in the hospital you will have your blood sugar checked regularly and likely will be on insulin instead of the pills. documented in this encounter [facility] 02-27-2025 Evaluation note Diagnosis Onset Date Resolution Laryngeal squamous cell carcinoma acute February 27, 2025 9 :00am [facility] Work Phone: 1(176) 402-100805-23-2025 Evaluation note* Diagnosis Onset Date Resolution Status Admit Date Laryngeal squamous cell carcinoma ac [place] February 27, 2025 9:00am Laryngeal squamous cell carcinoma ac [place] April 08, 2025 9:32am [facility] Work Phone: 1(595) 187-981005-23-2025 Evaluation note* Diagnosis Onset Date Resolution Status Admit Date Laryngeal squamous cell carcinoma ac [place] February 27, 2025 9:00am Laryngeal squamous cell carcinoma ac [place] April 08, 2025 9:32am Laryngeal squamous cell carcinoma ac [place] April 15, 2025 9:34am [facility] Work Phone: 1(948) 814-702004-21-2025 Discharge summary [facility] Medical Records Department [address] [place] [address] Discharge Summary 01/26/25 1022 MR#: [id number] Acct: [id number] Name: DOMINIK VALENTINE Rep #:[id number] : 1960 64 From: Hari Keith MD PCP: Dr. Satya Dove MD Status:[facility] Location: [place] [address] Providers Primary Care Physician: Dr. Satya Dove MD Reason For Visit: Micro Direct Laryngoscopy with stripping of vocal Medications at Discharge Home Medications metoprolol tartrate 50 mg tablet 25 mg PO BID 03/26/20 acetaminophen 500 mg capsule 1,000 mg PO Q6H PRN pain 03/07/23 pantoprazole 40 mg tablet,delayed release 40 mg PO DAILY 01/21/25 Weight / BMI Weight Weight: 75 kg Body Mass Index (BMI) 25.1 ABG / Lab / Microbiology Data 01/22/25 11:45 01/22/25 11:45 D/C Instructions Discharge Diet: No restrictions Discharge Activity: Return to Normal Activity DC O2, CPAP, BIPAP Needs Home O2 Discharge instructions: No Please Follow Up With: Hari Keith MD When: next week Meaningful Use Info Meaningful Use Meaningful Use Diagnoses (Choose all that apply): None applicable Ischemic Stroke Statin Dosing Therapy Reference: STATIN DOSE THERAPY REFERENCE: * Patients > 75 years receive moderate or high dose statin therapy. * Patients 75 years or YOUNGER should receive HIGH intensity statin dose unless contraindicated. You will be required to document reason for non-treatment if statin daily dose does not meet guidelines. HIGH DOSE STATIN THERAPY DAILY Atorvastatin > than or = to 40 mg Rosuvastatin > than or = to 20 mg Amlodipine + Atorvastatin > than or = to 2.5/40 mg Ezetimibe + Simvastatin 10/80 mg Simvastatin 80mg Discharge Plan Admission Attending Provider: Hari Keith Primary Care Provider: Satya Dove Instructions Print Language: Azerbaijani Discharge Orders/Prescriptions Prescriptions: No Action metoprolol tartrate 50 mg tablet 25 mg PO BID acetaminophen 500 mg capsule 1,000 mg PO Q6H PRN (Reason: pain) pantoprazole 40 mg tablet,delayed release (DR/EC) 40 mg PO DAILY Referrals / Follow Up: Satya Dove MD [Primary Care Provider] - Disposition Disposition (needs filled in before D/C Order can be placed): Home, Self Care 01/26/25 1022 Cosigner Signature (if applicable): CC: Dr. Satya Dove MD; Dr. Hari Keith MD~ Signed [facility]04-21-2025 Discharge summary Author Hari Keith [facility] Note Date/Time January 26, 2025 12: 22pm [facility] Medical Records Department [address] [place] [address] Discharge Summary 01/26/25 1022 MR#: [id number] Acct: [id number] Name: DOMINIK VALENTINE Rep #:[id number] : 1960 64 From: Hari Keith MD PCP: Dr. Satya Dove MD Status:[facility] [facility] Location: [place] [address] Providers Primary Care Physician: Dr. Satya Dove MD Reason For Visit: Micro Direct Laryngoscopy with stripping of vocal Medications at Discharge Home Medications metoprolol tartrate 50 mg tablet 25 mg PO BID 03/26/20 acetaminophen 500 mg capsule 1,000 mg PO Q6H PRN pain 03/07/23 pantoprazole 40 mg tablet,delayed release 40 mg PO DAILY 01/21/25 Weight / BMI Weight Weight: 75 kg Body Mass Index (BMI) 25.1 ABG / Lab / Microbiology Data 01/22/25 11:45 01/22/25 11:45 D/C Instructions Discharge Diet: No restrictions Discharge Activity: Return to Normal Activity DC O2, CPAP, BIPAP Needs Home O2 Discharge instructions: No Please Follow Up With: Hari Keith MD When: next week Meaningful Use Info Meaningful Use Meaningful Use Diagnoses (Choose all that apply): None applicable Ischemic Stroke Statin Dosing Therapy Reference: STATIN DOSE THERAPY REFERENCE: * Patients > 75 years receive moderate or high dose statin therapy. * Patients 75 years or YOUNGER should receive HIGH intensity statin dose unless contraindicated. You will be required to document reason for non-treatment if statin daily dose does not meet guidelines. HIGH DOSE STATIN THERAPY DAILY Atorvastatin > than or = to 40 mg Rosuvastatin > than or = to 20 mg Amlodipine + Atorvastatin > than or = to 2.5/40 mg Ezetimibe + Simvastatin 10/80 mg Simvastatin 80mg Discharge Plan Admission Attending Provider: Hari Keith Primary Care Provider: Satya Dove Instructions Print Language: Azerbaijani Discharge Orders/Prescriptions Prescriptions: No Action metoprolol tartrate 50 mg tablet 25 mg PO BID acetaminophen 500 mg capsule 1,000 mg PO Q6H PRN (Reason: pain) pantoprazole 40 mg tablet,delayed release (DR/EC) 40 mg PO DAILY Referrals / Follow Up: Satya Dove MD [Primary Care Provider] - Disposition Disposition (needs filled in before D/C Order can be placed): Home, Self Care 01/26/25 1022 <Electronically signed by Hari Keith MD> Cosigner Signature (if applicable): CC: Dr. Satya Dove MD; Dr. Hari Keith MD~ Signed [facility] Work Phone: 1(965) 586-636804-21-2025 Consult note [facility] Medical Records Department [address] [place] [address] Anesthesia Postop Eval I 01/26/25 1040 MR#: [id number] Acct: [id number] Name: DOMINIK VALENTINE Rep #:[id number] : 1960 64 From: Valarie Ayers TECHNICAL COORDINATOR PCP: Dr. Satya Dove MD Status: [facility] Y Race: C Location: [place] [address] Anesthesia: Postop Eval I Current Vital Signs Temperature: 97.1 F Pulse Rate: 61 Blood Pressure: 143/71 Respiratory Rate: 18 Pulse Ox: 97 Oxygen Delivery Method: Room Air Assessment Airway patent: Yes Spontaneous unlabored respirations: Yes Mental status: Awake nausea: No Vomiting: No Anesthesia Complication: No Fluid Hydration Crystalloid volume administer (ml): 600 Total IV fluid infused: 600 Progress Note Anesthesia document: Postop Eval 1 completed: Yes 01/26/[address] TECHNICAL COORDINATOR> Date _ Valarie Ayers TECHNICAL COORDINATOR Cosigner Signature: Date CC: ~ Signed [facility]04-21-2025 Procedure note [facility] Medical Records Department [address] [facility] [place] [address] Operative Report 01/26/25 1024 MR#: [id number] Acct: [id number] Name: DOMINIK VALENTINE Rep #:[id number] : 1960 64 From: Hari Keith MD PCP: Dr. Satya Dove MD Status:[facility] Location: [place] [address] Operative Report (Standard) Operative Information Date of Procedure: 01/26/25 Pre-Operative Diagnosis: hoarseness right vocal cord mass Post-Operative Diagnosis: same Surgery/Procedure Performed: Microdirect laryngoscopy with biopsy infantry unit leader: No Type of Anesthesia: General RN Documented Start/Stop Times: Operation Date: 01/26/25 09:15 Case Time Into Pre-Op 01/26/25 07:53 Out of Pre-Op 01/26/25 09:33 Anesthesia Start 01/26/25 09:37 Into Room 01/26/25 09:37 Procedure Start 01/26/25 09:55 Procedure Start Time: 09:55 Procedure Stop Time: 10:22 Select all DRAINS/GRAFTS/IMPLANTS that apply: None Estimated Blood Loss: minimal Specimen collected: Yes 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 He was placed in the supine position on theoperating room table. He was given sufficient general endotracheal anesthesia. The table was degrees in a clockwise fashion. The patient was draped sterilely. A gum guard was placed on the upperdentition. A Dedo laryngoscope inserted the patient's mouth and then into the oropharynx. The epiglottis and base of tongue were normal. Piriform sinuses were normal. The larynx was exposed. He was then placed in suspension on the [place] stand. The operating microscope was used throughout the rest of the case. There was a left vocal cord mass that was localized to the true cord but extended into the ventricle. It extended to the anterior commissure. There wasno involvement of the right vocal cord. I grasped a portion of the neoplasm with cup forceps. I then cut this from the surrounding tissue and sent this forpermanent section. Hemostasis was achieved with topical adrenaline on pledgets.Once hemostasis was achieved all instrumentation was removed. Patient was [facility] back to [facility] and awoken. he was brought to the recovery room in stable condition. Blood loss minimal, replacement none. Sponge, needle, and instrument count correct at the end of the procedure. Surgical Findings: right vocal cord neoplsm Complications Complications: No 01/26/25 1028 Cosigner Signature (if applicable): CC: Dr. Satya Dove MD; Dr. Hari Keith MD~ Signed [facility]04-21-2025 [facility] Medical Records Department [address] [place] [address] Discharge Summary 01/26/25 1022 MR#: [id number] Acct: [id number] Name: DOMINIK VALENTINE Rep #: [id number] : 1960 64 From: Hari Keith MD PCP: Dr. Satya Dove MD Status:[facility] Location: [place] [address] Providers Primary Care Physician: Dr. Satya Dove MD Reason For Visit: Micro Direct Laryngoscopy with stripping of vocal Medications at Discharge Home Medications metoprolol tartrate 50 mg tablet 25 mg PO BID 03/26/20 acetaminophen 500 mg capsule 1,000 mg PO Q6H PRN pain 03/07/23 pantoprazole 40 mg tablet,delayed release 40 mg PO DAILY 01/21/25 Weight / BMI Weight Weight: 75 kg Body Mass Index (BMI) 25.1 ABG / Lab / Microbiology Data 01/22/25 11:45 01/22/25 11:45 D/C Instructions Discharge Diet: No restrictions Discharge Activity: Return to Normal Activity DC O2, CPAP, BIPAP Needs Home O2 Discharge instructions: No Please Follow Up With: Hari Keith MD When: next week Meaningful Use Info Meaningful Use Meaningful Use Diagnoses (Choose all that apply): None applicable Ischemic Stroke Statin Dosing Therapy Reference: STATIN DOSE THERAPY REFERENCE: * Patients > 75 years receive moderate or high dose statin therapy. * Patients 75 years or YOUNGER should receive HIGH intensity statin dose unless contraindicated. You will be required to document reason for non-treatment if statin daily dose does not meet guidelines. HIGH DOSE STATIN THERAPY DAILY Atorvastatin > than or = to 40 mg Rosuvastatin > than or = to 20 mg Amlodipine + Atorvastatin > than or = to 2.5/40 mg Ezetimibe + Simvastatin 10/80 mg Simvastatin 80mg Discharge Plan Admission Attending Provider: Hari Keith Primary Care Provider: Satya Dove Instructions Print Language: Azerbaijani Discharge Orders/Prescriptions Prescriptions: No Action metoprolol tartrate 50 mg tablet 25 mg PO BID acetaminophen 500 mg capsule 1,000 mg PO Q6H PRN (Reason: pain) pantoprazole 40 mg tablet,delayed release (DR/EC) 40 mg PO DAILY Referrals / Follow Up: Satya Dove MD [Primary Care Provider] - Disposition Disposition (needs filled in before D/C Order can be placed): Home, Self Care 01/26/25 1022 Cosigner Signature (if applicable): CC: Dr. Satya Dove MD; Dr. Hari Keith MD [facility]04-21-2025 Consult note Author Abner ashley [facility] Note Date/Time January 26, 2025 7:4 9am [facility] Medical Records Department [address] [place] [address] Pre-Anesthesia Evaluation 01/26/25 0748 MR#: [id number] Acct: [id number] Name: DOMINIK VALENTINE Rep #:[id number] : 1960 64 From: Abner Rodrigues MD PCP: Dr. Satya Dove MD Status:[facility] Y Race: C Location: [place] [address] ASA Classification* ASA Classification ASA Classification: 2 Assessment & Plan Anesthesia* Anesthesia Assessment Anesthesia Assessment: Discussed sedation and/or anesthesia options, risks, benefits, and alternatives with patient/parents/legal guardian/POA. Questions invited. The patient/parents/legal guardian/POA seems to understand and agrees to proceedwith anesthesia plan. Reviewed the physical assessment, medical history, allergy history and patient home medications list prior to surgery/procedure/anesthetic and documented any changes. Performed airway and anesthesia risk assessments. Anesthesia Type Anesthesia Type: General Anesthesia Focused Assessment* Airway Assessment Mouth opens: >3 cm Mallampati Score: II Focused Labs Anesthesia Preop lab: CBC WBC 9.1 K/mm3 (4.4-11.0) 01/22/25 11:45 01/22/25 RBC 5.36 M/mm3 (4.6-6.2) 01/22/25 11:45 01/22/25 Hgb 15.3 g/dL (13.0-16.5) 01/22/25 11:45 01/22/25 Hct 46.6 % (40-54) 01/22/25 11:45 01/22/25 Plt Count 254 K/mm3 (150-450) 01/22/25 11:45 01/22/25 CHEMISTRY Potassium 4.7 mmol/L (3.3-5.1) 01/22/25 11:45 01/22/25 Sodium 138 mmol/L (133-145) 01/22/25 11:45 01/22/25 Magnesium 2.3 mg/dL (1.6-2.6) 12/28/23 09:40 12/28/23 BUN 11 mg/dL (4-19) 01/22/25 11:45 01/22/25 Creatinine 0.83 mg/dL (0.70-1.20) 01/22/25 11:45 01/22/25 Glucose 109 mg/dL (70-99) H 01/22/25 11:45 01/22/25 TSH 1.30 uIU/mL (0.358-3.74) 02/13/23 10:45 COAG Pre-Assessment Diagnosis/Proposed Procedure Planned Operative Procedure(s): Micro Direct Laryngoscopy with stripping of vocal cords vs biopsy Anesthesia History 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 When Was Last Pacemaker Check QUESTION #4 FULL TEXT: You/Your Family Experience fever (hyperthermia) with Anesthesia Last Oral Intake Last Oral intake: Last Oral Intake NPO since Meds taken in AM with sips of water? Meds patient instructed to take am of surgery PONV PONV - hotel assistant general manager: PONV - hotel assistant general manager Female No 01/21/25 09:05 HX of Motion Sickness No 01/21/25 09:05 HX of N/V After Surgery No 01/21/25 09:05 Non-Smoker No 01/21/25 09:05 Duration of Surgery greater No 01/21/25 09:05 than 60 minutes Number of Risk Factors PONV Score Height & Weight Height & Weight: Anesthesia: Height & Weight Height 5 ft 8 in 06/20/24 11:17 Respiratory Assessment Respiratory Assessment - hotel assistant general manager: Respiratory Tract Infection Hx - hotel assistant general manager Hx Respiratory Tract Infection No 01/21/25 09:05 STOP Sleep Apnea STOP Sleep Apnea - hotel assistant general manager: STOP Sleep Apnea - hotel assistant general manager Hx Hypertension Yes: PER PT, CONTROLLED ON 01/21/25 09:05 MEDS Hx Sleep Apnea No 01/21/25 09:05 CPAP BIPAP Do you snore loudly (louder No 01/21/25 09:05 than talking or can be heard Do you often feel tired/ No 01/21/25 09:05 fatigued/ sleepy during daytime? Has anyone observed you stop No 01/21/25 09:05 breathing during sleep? STOP Results Negative 01/21/25 09:05 QUESTION #5 FULL TEXT : Do you snore loudly (louder than talking or can be heard through closed doors)? Tobacco Use History Tobacco Use History - hotel assistant general manager: Tobacco Use History - hotel assistant general manager Tobacco Use Smoking Status Current every day smoker 01/21/25 09:05 Hx Tobacco Use Yes 01/21/25 09:05 Years Smoking Packs Smoked per Day Smoking Cessation Date was within the last 15 years Hx Smoking Cessation Date Hx Smoking Cessation Counseling Hematologic Medial History Hematologic Hx - hotel assistant general manager: Hematologic Medical Hx - inside wirer Hx of Blood Transfusion No 01/21/25 09:05 Hx of Transfusion in last 3 No 01/21/25 09:05 Months Date of Last Transfusion (if within last 3 months) Ever experience any problems No 01/21/25 09:05 with transfusion(s)? Specify any problems Hx of Preganancy in last 3 N/A 01/21/25 09:05 Months Nurse Filling Out Transfusion VCHRISTIN 01/21/25 09:05 & Questions: Date: 01/21/25 01/21/25 09:05 Time: 09:06 01/21/25 09:05 Patient unable to answer at this time (ie. confused, unrespo /Reproduction History /Reproductive History - hotel assistant general manager: /Reproductive Hx- hotel assistant general manager Hx Now Gestational Age (in weeks): EDC: Hx Hx Para Hx Section SAB COUNT INCLUDES [facility] Medical History Wears glasses Gastric reflux Arthritis Smoker Hoarseness History of colonic polyps Gastroesophageal reflux disease HTN (hypertension) Home Medications ?Medication ?Instructions ?Recorded ?Last Taken ?Type metoprolol tartrate 50 mg tablet 25 mg PO BID 03/26/20 04/17/23 History acetaminophen 500 mg capsule 1,000 mg PO Q6H PRN pain 03/07/23 Unknown History pantoprazole 40 mg tablet,delayed 40 mg PO DAILY 01/21 Unknown History release Allergy/AdvReac Type Severity Reaction Status Date / Time amoxicillin (From Augmentin) Allergy Other Verified 01/21/25 08:58 clavulanic acid (From Allergy Other Verified 01/21/25 08:58 Augmentin) Family History Brother Cancer sinus surgery Father Heart disease Surgical History History of left shoulder replacement History of colonoscopy S/P left knee arthroscopy S/P correction of deviated nasal septum S/p tibial fracture S/P left knee surgery Social History household members: spouse current occupational status: retired Smoking Status: Current every day smoker tobacco type: cigarettes alcohol intake: never Review of Systems (Anesthesia) ROS Narrative System reviewed and no additional complaints, except as documented. 01/26/25 0749 <Electronically signed by Abner Rodrigues MD > Date _ Abner Rodrigues MD Cosigner Signature: Date CC: ~ Signed [facility] Work Phone: 1(836) 690-537204-21-2025 Consult note [facility] Medical Records Department [address] [place] [address] Pre-Anesthesia Evaluation 01/26/25 0748 MR#: [id number] Acct: [id number] Name: DOMINIK VALENTINE Rep #:[id number] : 1960 64 From: Abner Rodrigues MD PCP: Dr. Satya Dove MD Status:[facility] Y Race: C Location: [place] [address] ASA Classification* ASA Classification ASA Classification: 2 Assessment & Plan Anesthesia* Anesthesia Assessment Anesthesia Assessment: Discussed sedation and/or anesthesia options, risks, benefits, and alternatives with patient/parents/legal guardian/POA. Questions invited. The patient/parents/legal guardian/POA seems to understand and agrees to proceedwith anesthesia plan. Reviewed the physical assessment, medical history, allergy history and patient home medications list prior to surgery/procedure/anesthetic and documented any changes. Performed airway and anesthesia risk assessments. Anesthesia Type Anesthesia Type: General Anesthesia Focused Assessment* Airway Assessment Mouth opens: >3 cm Mallampati Score: II Focused Labs Anesthesia Preop lab: CBC WBC 9.1 K/mm3 (4.4-11.0) 01/22/25 11:45 01/22/25 RBC 5.36 M/mm3 (4.6-6.2) 01/22/25 11:45 01/22/25 Hgb 15.3 g/dL (13.0-16.5) 01/22/25 11:45 01/22/25 Hct 46.6 % (40-54) 01/22/25 11:45 01/22/25 Plt Count 254 K/mm3 (150-450) 01/22/25 11:45 01/22/25 CHEMISTRY Potassium 4.7 mmol/L (3.3-5.1) 01/22/25 11:45 01/22/25 Sodium 138 mmol/L (133-145) 01/22/25 11:45 01/22/25 Magnesium 2.3 mg/dL (1.6-2.6) 12/28/23 09:40 12/28/23 BUN 11 mg/dL (4-19) 01/22/25 11:45 01/22/25 Creatinine 0.83 mg/dL (0.70-1.20) 01/22/25 11:45 01/22/25 Glucose 109 mg/dL (70-99) H 01/22/25 11:45 01/22/25 TSH 1.30 uIU/mL (0.358-3.74) 02/13/23 10:45 COAG Pre-Assessment Diagnosis/Proposed Procedure Planned Operative Procedure(s): Micro Direct Laryngoscopy with stripping of vocal cords vs biopsy Anesthesia History 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 When Was Last Pacemaker Check QUESTION #4 FULL TEXT: You/Your Family Experience fever (hyperthermia) with Anesthesia Last Oral Intake Last Oral intake: Last Oral Intake NPO since Meds taken in AM with sips of water? Meds patient instructed to take am of surgery PONV PONV - hotel assistant general manager: PONV - hotel assistant general manager Female No 01/21/25 09:05 HX of Motion Sickness No 01/21/25 09:05 HX of N/V After Surgery No 01/21/25 09:05 Non-Smoker No 01/21/25 09:05 Duration of Surgery greater No 01/21/25 09:05 than 60 minutes Number of Risk Factors PONV Score Height & Weight Height & Weight: Anesthesia: Height & Weight Height 5 ft 8 in 06/20/24 11:17 Respiratory Assessment Respiratory Assessment - hotel assistant general manager: Respiratory Tract Infection Hx - hotel assistant general manager Hx Respiratory Tract Infection No 01/21/25 09:05 STOP Sleep Apnea STOP Sleep Apnea - hotel assistant general manager: STOP Sleep Apnea - hotel assistant general manager Hx Hypertension Yes: PER PT, CONTROLLED ON 01/21/25 09:05 MEDS Hx Sleep Apnea No 01/21/25 09:05 CPAP BIPAP Do you snore loudly (louder No 01/21/25 09:05 than talking or can be heard Do you often feel tired/ No 01/21/25 09:05 fatigued/ sleepy during daytime? Has anyone observed you stop No 01/21/25 09:05 breathing during sleep? STOP Results Negative 01/21/25 09:05 QUESTION #5 FULL TEXT : Do you snore loudly (louder than talking or can be heard through closeddoors)? Tobacco Use History Tobacco Use History - hotel assistant general manager: Tobacco Use History - hotel assistant general manager Tobacco Use Smoking Status Current every day smoker 01/21/25 09:05 Hx Tobacco Use Yes 01/21/25 09:05 Years Smoking Packs Smoked per Day Smoking Cessation Date was within the last 15 years Hx Smoking Cessation Date Hx Smoking Cessation Counseling Hematologic Medial History Hematologic Hx - hotel assistant general manager: Hematologic Medical Hx - inside wirer Hx of Blood Transfusion No 01/21/25 09:05 Hx of Transfusion in last 3 No 01/21/25 09:05 Months Date of Last Transfusion (if within last 3 months) Ever experience any problems No 01/21/25 09:05 with transfusion(s)? Specify any problems Hx of Preganancy in last 3 N/A 01/21/25 09:05 Months Nurse Filling Out Transfusion VCHRISTIN 01/21/25 09:05 & Questions: Date: 01/21/25 01/21/25 09:05 Time: 09:06 01/21/25 09:05 Patient unable to answer at this time (ie. confused, unrespo /Reproduction History /Reproductive History - hotel assistant general manager: /Reproductive Hx- hotel assistant general manager Hx Now Gestational Age (in weeks): EDC: Hx Hx Para Hx Section SAB PFSH Medical History Wears glasses Gastric reflux Arthritis Smoker Hoarseness History of colonic polyps Gastroesophageal reflux disease HTN (hypertension) Home Medications ?Medication ?Instructions ?Recorded ?Last Taken ?Type metoprolol tartrate 50 mg tablet 25 mg PO BID 03/26/20 04/17/23 History acetaminophen 500 mg capsule 1,000 mg PO Q6H PRN pain 03/07/23 Unknown History pantoprazole 40 mg tablet,delayed 40 mg PO DAILY 01/21 Unknown History release Allergy/AdvReac Type Severity Reaction Status Date / Time amoxicillin (From Augmentin) Allergy Other Verified 01/21/25 08:58 clavulanic acid (From Allergy Other Verified 01/21/25 08:58 Augmentin) Family History Brother Cancer sinus surgery Father Heart disease Surgical History History of left shoulder replacement History of colonoscopy S/P left knee arthroscopy S/P correction of deviated nasal septum S/p tibial fracture S/P left knee surgery Social History household members: spouse current occupational status: retired Smoking Status: Current every day smoker tobacco type: cigarettes alcohol intake: never Review of Systems (Anesthesia) ROS Narrative System reviewed and no additional complaints, except as documented. 01/26/25 0749 > Date _ Abner Rodrigues [facility]: Date CC: ~ Signed [facility]06-28-2024 Instructions* Patient Instructions* Sudheer Paez, - 04/04/2024 1:54 PM EDT Today we discuss your concerns about memory changes that have been slowly progressive. Today we do a Ted Cognitive Assessment and your score is 23 out of 30 points, suggestive of a mild cognitive impairment. I recommend that we do some more testing to further clarify the reason for these symptoms and test score. I have ordered: MRI brain without medication to help you relax. Neuropsychology testing consult that will be more detailed than the test we took today. Labs have been ordered to check for nutritional deficiencies or thyroid abnormality I will have my nurse call you with results of your MRI brain. [facility] History of Present illness Narrative* Sudheer Paez DO - 04/04/2024 1:00 PM EDT Images from the original note were not included. [facility] for [facility] New Patient Evaluation Consulting Provider: SELF Individuals who were included in, or assisted with the encounter were: Dominik Valentine Sudheer Paez DO Chief Complaint/Issues: Dominik Valentine is a 63 year old male seen in the [facility] for: Forgetting things, personality change, memory concerns. Emailed Margo 03/24/2024. She replied on 03/24/2024 saying .I contacted the PCP they will fax over the last office note to us. 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 No abnormal contrast- enhancement or masses noted. The major cerebral arteries anddural venous sinuses appear to be grossly normal. The orbits, mastoid areas, calvarium, and meninges are unremarkable. Impression: 1. Normal magnetic resonance imaging of the brain. 2. Moderate bilateral ethmoid and maxillary chronic sinusitis HPI: Patient is right handed male who presents late for visit, abbreviated visit offered. He does not have concerns about his memory, but Ruby is concerned because she is noting cognitive changes in her father, and is concerned about possible signs in [place]. He gets sidetracked at times. He misplac es objects. Details from conversations are lost at times. He has never taken care of the finances at home. He does not get lost driving. No problems using electronic devices, but they don't have excess computer devices at home. They have two children, and their son has mentioned concerns about his memory beginning several years ago, but mentions he is concerned for the past 6 months. No change in his sleep schedule, no naps during the day. He does snore, approximately 1-2 nights per week. He awakens feeling refreshed. He is not seeing provider in mental health, last time was in 2006. Ruby has noted he is not as humbled as he used to be. He loses his patience faster than he used to. He eats meat daily. No changes in weight recently General Examination: BP 163/73 (BP Site: Right Arm, BP Position: Sitting, BP Cuff Size: Large Adult) Pulse 63 He is accompanied and young child. General: Awake, alert, interactive, no acute distress, good nutritional status, normal development,well-kept Neurological Exam [place] Cognitive Assessment (MoCA) MoCA Total Score: 23 (out of 30) Visuospatial / Executive: /5 Namin/3 Attention: 6 Language: 2/3 Abstraction: 2/2 Delayed memory: 5 Orientation: 6 Education: 1 (1 is true, 0 is false) Cranial Nerves Visual soto: intact to confrontation Extraocular movements: conjugate and full Nystagmus: absent Pupils: R 2mm L 2mm equal reactive Ptosis: absent Trigeminal: V1-V3 intact, V motor normal Facial: face symmetric and strong Palate: central, normal movement, no dysphonia Tongue: normal bulk, strength, and rapid movements, no fasciculations protrudes to left XI: normal sternocleidomastoids and trapezius Motor Examination and Coordination Neuromuscular Examination Axial Muscles Ptosis: R: none L: none Face-eye closure: normal Face-mouth closure: normal Tongue: normal Tongue atrophy: no Head drop: no Extremity Muscles Upper Extremity Right Left Shoulder abduction 5 5 Elbow flexion 5 5 Elbow extension 5 5 Finger flexion/trains dispatcher supervisor 5 5 Finger extension 5 5 First dorsal interosseous 5 5 Abductor digiti minimi 5 5 Abductor pollicis brevis 5 5 Lower Extremity Right Left Hip flexion 5 5 Knee flexion 5 5 Knee extension 5 5 Ankle plantarflexion 5 5 Ankle dorsiflexion 5 5 Extensor hallucis longus 5 5 Flexor digitorum longus 5 5 Reflexes Deep tendon reflexes graded by MRC Deep Tendon Reflexes Right Left Biceps 1 1 Brachioradialis 1 1 Patellar 2+ 2+ Plantar Downgoing Mute Sensation Sensation intact to light touch, pinprick, proprioception and vibration. Gait Arises easily. Casual gait are normal. Can rise on heels and toes. Tandem: normal Romberg: normal Assessment & Plan 04/04/2024 - General Neurology, Sudheer Paez, DO ASSESSMENT Patient is 63-year-old male who presents today late for visit, abbreviated appointment offered. He is with his and their young grandchild. They are here for cognitive concerns. Medical history significant for multiple head injuries playing high school football, hypertension, mental health history (related to drug and alcohol abuse/dependence, not currently followed by mental health provider), left shoulder replacement, left knee surgery, current everyday smoker. He has been sober since 2005. MoCA score today is 23/30 (22+1), losing points for attention (-1), language (- 1), delayed recall (-4), and orientation (-2). Some of the points lost could be due to distractions during the first part of the test before I ask his and grandchild to leave as it may have been causing some distractibility. It is difficult to discern whether there is a neurodegenerative component based on our fairly briefexchange today. On neurologic exam there are no abnormalities with motor strength, sensory exam, reflexes, gait balance coordination. He is mildly irritated that he did not know to arrive ahead of time, as he does not have [employer] and did not receive notification of this fact. My recommendation is for an MRI of the brain with quantification and 3D postprocessing based on hisalcohol and drug history, as well as his history of multiple head injuries. This is to look for structural abnormalities. I have also ordered a neuropsychology test battery for a more detailed evaluation to discern whether this is related to mood dysphoria or a subtle, early neurodegenerative process. Lastly I have ordered labs to include B12, TSH. Results will be communicated via [facility]. PLAN I have ordered: 1. MRI brain without medication to help you relax. 2. Neuropsychology testing consult that will be more detailed than the test we took today. 3. Labs have been ordered to check for nutritional deficiencies or thyroid abnormality I will have my nurse call you with results of your MRI brain. Encounter Diagnosis ICD-10-CM 1. Cognitive impairment, mild, so stated G31.84 THYROID STIMULATING HORMONE VITAMIN B12 MRI BRAIN W QUANT WO IVCON MRI 3D POST PROCESSING NEUROPSYCHOLOGICAL TESTING CONSULT Return if symptoms worsen or fail to improve. Data Review Objective Current Outpatient Medications Medication Sig metoprolol tartrate, short acting, (LOPRESSOR) 50 mg tablet Take 50 mg by mouth twice daily. buPROPion XL (WELLBUTRIN XL) 150 mg 24 hr tablet Take 150 mg by mouth once daily. (Patient not taking: Reported on 04/04/2024) escitalopram oxalate (LEXAPRO) 20 mg tablet Take 20 mg by mouth once daily. NEXIUM 40 MG CAP Take one (1) capsule daily No current facility-administered medications for this visit. ACTIVE PROBLEM LIST Esophageal Reflux Irritable Bowel Syndrome PAST MEDICAL HISTORY Diagnosis Date Hypertension Mental disorder Snoring PAST SURGICAL HISTORY Procedure Laterality Date COLONOSCOPY FLX DX W/COLLJ SPEC WHEN PFRMD 09/17/2017 repeat 5 years Social History Tobacco Use Smoking status: Every Day Packs/day: 0.75 Years: 30.00 Additional pack years: 0.00 Total pack years: 22.50 Types: Cigarettes Smokeless tobacco: Never Substance Use Topics Alcohol use: No Drug use: Yes Comment: occassional marijuana No family history on file. Review of Systems Neurological: Negative for sleep disturbance. Psychiatric: Positive for confusion and decreased concentration. Lab and Test Review: Results for orders placed or performed during the hospital encounter of 09/17/17 SURGICAL PATHOLOGY Result Value Ref Range [employer] Operations Consultant Specimen originated from [facility] Specimen #: [id number] Submitting Physician: JAKE WALTER ([id number]) FINAL DIAGNOSIS 1. Ascending colon polyp, biopsy (A) - Tubular adenoma. 2. Descending colon polyp, biopsy (B) - Colonic mucosa, no significant pathologic alterations. JDR/lbk 09/18/2017 Satya Lucas M.D. (Electronic Signature) SPECIMEN SUBMITTED A: ASCENDING COLON POLYP B: DESCENDING COLON POLYP CLINICAL DATA Z12.11 GROSS DESCRIPTION A. Received in formalin are four pieces of king, soft tissue aggregating to 0.9 x 0.3 x 0.2 cm. Totally submitted in one cassette. B. Received in formalin is one piece of king, soft tissue measuring 0.3 x 0.2 x 0.2 cm. Totally submitted in one cassette. Gross examination performed at [facility], [address] [place], [place] [id number] 5 09/18/2017 1:56:33 AM Date of Report: 09/18/2017 Date of Procedure: 09/17/2017 Date of Receipt: 09/17/2017 Submitted by: JAKE WALTER ([email or web address]) Location: W010 Diagnostic interpretation performed at [facility], [address] [place] [address]. CONVERTED SURGICAL PATHOLOGY Result Value Ref Range CONVERTED FINAL DIAGNOSIS 1. Ascending colon polyp, biopsy (A) - Tubular adenoma. 2. Descending colon polyp, biopsy (B) - Colonic mucosa, no significant pathologic alterations. JDR/lbk 09/18/2017 CONVERTED GROSS DESCRIPTION A. Received in formalin are four pieces of king, soft tissue aggregating to 0.9 x 0.3 x 0.2 cm. Totally submitted in one cassette. B. Received in formalin is one piece of king, soft tissue measuring 0.3 x 0.2 x 0.2 cm. Totally submitted in one cassette. Gross examination performed at [facility], [address] [place] [address] 09/18/2017 1:56:33 AM CONVERTED CLINICAL HISTORY Z12.11 CONVERTED SPECIMENS ASCENDING COLON POLYP DESCENDING COLON POLYP CONVERTED COMPLETE REPORT Specimen originated from [facility] Specimen #: [id number] Submitting Physician: JAKE WALTER ([id number]) FINAL DIAGNOSIS 1. Ascending colon polyp, biopsy (A) - Tubular adenoma. 2. Descending colon polyp, biopsy (B) - Colonic mucosa, no significant pathologic alterations. J/delisa 09/18/2017 Satya Lucas M.D. (Electronic Signature) SPECIMEN SUBMITTED A: ASCENDING COLON POLYP B: DESCENDING COLON POLYP CLINICAL DATA Z12.11 GROSS DESCRIPTION A. Received in formalin are four pieces of king, soft tissue aggregating to 0.9 x 0.3 x 0.2 cm. Totally submitted in one cassette. B. Received in formalin is one piece of king, soft tissue measuring 0.3 x 0.2 x 0.2 cm. Totally submitted in one cassette. Gross examination performed at [facility], [address] [place] [address] 09/18/2017 1:56:33 AM Date of Report: 09/18/2017 Date of Procedure: 09/17/2017 Date of Receipt: 09/17/2017 Submitted by: JAKE WALTER ([email or web address]) Location: [facility] Diagnostic interpretation performed at [place] [address]. [place] Number: [id number] CONVERTED ORDERING PROVIDER Ordering Provider: JAKE WALTER Outside Data/Labs: Subjective Patient-Entered Data: 03/24/24 - GENERAL NEUROLOGY SCORES No data to display No data to display No data to display No data to display No data to display Medical Decision Making: Medical Decision Making Level: 1 - N/A I spent a total of 70 minutes on the date of the service which included preparing to see the patient, [id number] patient care, completing clinical documentation, obtaining and/or reviewing separately obtained history, performing a medically appropriate examination, counseling and educating the pat ient/family/caregiver, ordering medications, tests, or procedures, and independently interpreting results (not separately reported). Sudheer Paez DO documented [facility] NoteHNO ID: [id number] Author: SUDHEER PAEZ DO Service: ? Author Type: Physician Type: Progress Notes Filed: 04/04/2024 14:05 Note Text: [facility] New Patient Evaluation Consulting Provider: SELF Individuals who were included in, or assisted with the encounter were: Dominik Valentine Sudheer Paez DO Chief Complaint/Issues: Dominik Valentine is a 63 year old male seen in the [facility] for General Neurology for: Forgetting things, personality change, memory concerns. Emailed Margo 03/24/2024. She replied on 03/24/2024 saying .I contacted the PCP they will fax over the last office note to us. 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 No abnormal contrast-enhancement or masses noted. The major cerebral arteries and dural venous sinuses appear to be grossly normal. The orbits, mastoid areas, calvarium, and meninges are unremarkable. Impression: 1. Normal magnetic resonance imaging of the brain. 2. Moderate bilateral ethmoid and maxillary chronic sinusitis HPI: Patient is right handed male who presents late for visit, abbreviated visit offered. He does not have concerns about his memory, but Ruby is concerned because she is noting cognitive changes in her father, and is concerned about possible signs in [place]. He gets sidetracked at times. He misplaces objects. Details from conversations are lost at times. He has never taken care of the finances at home. He does not get lost driving. No problems using electronic devices, but they don't have excess computer devices at home. They have two children, and their son has mentioned concerns about his memory beginning several years ago, but mentions he is concerned for the past 6 months. No change in his sleep schedule, no naps during the day. He does snore, approximately 1-2 nights per week. He awakens feeling refreshed. He is not seeing provider in mental health, last time was in 2006. Ruby has noted he is not as humbled as he used to be. He loses his patience faster than he used to. He eats meat daily. No changes in weight recently General Examination: BP 163/73 (BP Site: Right Arm, BP Position: Sitting, BP Cuff Size: Large Adult) Pulse 63 He is accompanied and young child. General: Awake, alert, interactive, no acute distress, good nutritional status, normal development, well-kept Neurological Exam [place] Cognitive Assessment (MoCA) MoCA Total Score: 23 (out of 30) Visuospatial / Executive: 02/09 Namin/3 Attention: 02/10 Language: 3 Abstraction: 2/2 Delayed memory: 10/12 Orientation: 01/11 Education: 1 (1 is true, 0 is false) Cranial Nerves Visual soto: intact to confrontation Extraocular movements: conjugate and full Nystagmus: absent Pupils: R 2mm L 2mm equal reactive Ptosis: absent Trigeminal: V1-V3 intact, V motor normal Facial: face symmetric and strong Palate: central, normal movement, no dysphonia Tongue: normal bulk, strength, and rapid movements, no fasciculations protrudes to left XI: normal sternocleidomastoids and trapezius Motor Examination and Coordination Neuromuscular Examination Axial Muscles Ptosis: R: none L: none Face-eye closure: normal Face-mouth closure: normal Tongue: normal Tongue atrophy: no Head drop: no Extremity Muscles Upper Extremity Right Left Shoulder abduction 5 5 Elbow flexion 5 5 Elbow extension 5 5 Finger flexion/trains dispatcher supervisor 5 5 Finger extension 5 5 First dorsal interosseous 5 5 Abductor digiti minimi 5 5 Abductor pollicis brevis 5 5 Lower Extremity Right Left Hip flexion 5 5 Knee flexion 5 5 Knee extension 5 5 Ankle plantarflexion 5 5 Ankle dorsiflexion 5 5 Extensor hallucis longus 5 5 Flexor digitorum longus 5 5 Reflexes Deep tendon reflexes graded by MRC Deep Tendon Reflexes Right Left Biceps 1 1 Brachioradialis 1 1 Patellar 2+ 2+ Plantar Downgoing Mute Sensation Sensation intact to light touch, pinprick, proprioception and vibration. Gait Arises easily. Casual gait are normal. Can rise on heels and toes. Tandem: normal Romberg: normal Assessment AND Plan 04/04/2024 - General Neurology, Sudheer Paez DO ASSESSMENT Patient is 63-year-old male who presents today late for visit, donna (more content not included)...[facility]06-27-2024 NoteHNO ID: [id number] Author: SUDHEER PAEZ DO Service: ? Author Type: Physician Type: Progress Notes Filed: 04/03/2024 18:28 Note Text: [facility] History of Present illness Narrative* Sudheer Paez DO - 04/03/2024 6:28 PM EDT BACH screening test orders documented in this encounterBar[facility]06-[facility] Telephone encounter Note * Telephone Encounter - Margo Hernandez MA - 03/24/2024 9:26 AM EDT Received from PCP last office note with MRI. PSS scanned into chart, provider notified and placed in providers in box. Margo Hernandez MA [facility]06-17-2024 Miscellaneous Notes* Telephone Encounter - Margo Hernandez MA - 03/24/2024 9:26 AM EDT Received from PCP last office note with MRI. PSS scanned into chart, provider notified and placed in providers in box. Margo Hernandez MA documented in this encounterBarber[facility]07-[facility] [facility] [facility] Valarie Ayers [facility] Note Date/Time January 26, 2025 10: 41am [facility] Medical Records Department [address] [place] [address] Anesthesia Postop Eval I 01/26/25 1040 MR#: [id number] Acct: [id number] Name: DOMINIK VALENTINE Rep #:[id number] : 1960 64 From: Valarie Ayers CRNA PCP: Dr. Satya Dove MD Status:RE G SDC Y Race: C Location: [place] [address] Anesthesia: Postop Eval I Current Vital Signs Temperature: 97.1 F Pulse Rate: 61 Blood Pressure: 143/71 Respiratory Rate: 18 Pulse Ox: 97 Oxygen Delivery Method: Room Air Assessment Airway patent: Yes Spontaneous unlabored respirations: Yes Mental status: Awake nausea: No Vomiting: No Anesthesia Complication: No Fluid Hydration Crystalloid volume administer (ml): 600 Total IV fluid infused: 600 Progress Note Anesthesia document: Postop Eval 1 completed: Yes 01/26/25 1041 <Electronically signed by Valarie de la cruz TECHNICAL COORDINATOR> Date _ Valarie Ayers CRNA Cosigner Signature: Date CC: ~ Signed [facility] Work Phone: Evaluation noteNo assessment information available [facility] Work Phone: Evaluation note* Diagnosis Onset Date Resolution Status History of colonic polyps ac timbi-[place] [facility] Work Phone: Evaluation note* Diagnosis Mild cognitive impairment- Primary Mild cognitive impairment, so stated [facility] Diagnosis Cognitive impairment, mild, so stated- Primary Mild cognitive impairment, so stated [facility] Diagnosis Malignant neoplasm of larynx, unspecified- Primary [facility] Diagnosis Malignant neoplasm of larynx, unspecified- Primary Toxic effect of other tobacco and nicotine, accidental (unintentional), initial encounter Dysphonia documented [facility] this [facility] Author Carlitos Dos Santos [facility] April 17, 2023 6:15am Note Date/Time April 17, 2023 6:11 am [facility] Medical Records Department [address] [place] [address] History & Physical Exam 04/17/23 0609 MR#: [id number] Acct: [id number] Name: DOMINIK VALENTINE Rep #:[id number] : 1960 62 From: Carlitos Dos Santos MD PCP: Dr. Satya Dove MD Status:[facility] Location: [place] [address] HPI - General General Date of Admission: 06/22/20 Date of Service: 04/17/23 Chief Complaint: Personal history colon polyps HPI Narrative DOMINIK VALENTINE, is a 62 M who presents via open access today for surveillance colonoscopy. Previous colonoscopy was September [address] Medhat Gomez performed a colonoscopy and removed 2 polyps. No specific complaints today. Otherwise feeling well. No abdominal pain. No bright red blood per rectum or melena. He is not on any anticoagulants COUNT INCLUDES THE [facility] Medical History (Updated 04/17/23 @ 06:[address] Carlitos Dos Santos MD) Arthritis Cough Fever Gastric reflux Gastroesophageal reflux disease Head congestion History of colonic polyps Hoarseness HTN (hypertension) Smoker URI (upper respiratory infection) Wears glasses Home Medications metoprolol tartrate 50 mg tablet 50 mg PO BID 03/26/20 [History Last Taken 04/17/23] acetaminophen 500 mg capsule 1,000 mg PO BID PRN pain 03/07/23 [History Last Taken Unknown] multivitamin 1 tab PO DAILY 03/07/23 [History Last Taken Unknown] lactobacillus combination no.4 3 billion cell capsule (Probiotic) 6,000 mmu cells PO DAILY 04/13/23 [History Last Taken Unknown] omeprazole 20 mg capsule,delayed release 20 mg PO DAILY 04/13/23 [History Last Taken 04/17/23] psyllium husk 0.4 gram capsule (Metamucil) 0.4 g PO DAILY 04/13/23 [History Last Taken Unknown] Allergy/AdvReac Type Severity Reaction Status Date / Time amoxicillin [From Augmentin] Allergy Other Verified 04/17/23 05:48 clavulanic acid Allergy Other Verified 04/17/23 05:48 [From Augmentin] Family History Brother Cancer sinus surgery Father Heart disease Surgical History History of colonoscopy History of left shoulder replacement S/P correction of deviated nasal septum S/P left knee arthroscopy S/P left knee surgery S/p tibial fracture Social History (Updated 03/07/23 @ 09:34 by Joya Wilson) household members: spouse current occupational status: retired Smoking Status: Current every day smoker tobacco type: cigarettes alcohol intake: never ROS Constitutional Constitutional: Reports systems reviewed and no addt'l complaints, except as documented Cardiovascular Cardiovascular: Denies chest pain Respiratory/Chest Respiratory/Chest: Denies shortness of breath at rest Gastrointestinal Gastrointestinal: Denies abdominal pain, change in bowel habits, hematochezia ormelena Physical Exam Const alert, oriented x3 and no apparent distress General Appearance: cooperative and comfortable Eyes General Eye: normal appearance of both eyes Neck General: normal visual inspection Chest inspection of chest normal Resp Effort and Inspection: able to speak in complete sentences and symmetric chest movement Auscultation: clear to auscultation bilaterally Cardio regular rate and regular rhythm GI soft to palpation, non-tender and non-distended Extremity no calf tenderness Neuro oriented x3 Psych thought process normal Assessment & Plan Assessment/Plan (1) History of colonic polyps: PLAN: The patient presents via open access today. I recommend to him a colonoscopy with possible biopsy or polypectomy as indicated. He is aware of the technique, benefit, risk, alternatives. He has had an opportunity to ask and have questions answered. We will proceed as noted. Carlitos Dos Santos M.D., F.A.C.S. 04/17/23 0615 <Electronically signed by Carlitos Dos Santos MD> Cosigner Signature (if applicable): CC: Dr. Satya Dove MD; Dr. Carlitos Dos Santos MD~ Signed [facility] Work Phone: Reason for referral (narrative)No reason for referral information availableWMadison Health Work Phone: Family History Relationship Condition Age at Onset Recorded Date/T joy brother Malignant neoplasm Unknown father Cardiac disease Unknown Chief Complaint and Reason for Visit Chief Complaint EORDER NICOTINE DEPENDENCE Amb Documentation TOBACCO DISORDER Chief Complaint EORDER NICOTINE DEPENDENCE Amb Documentation TOBACCO DISORDER Reason for Visit History of colonic p olyps Chief Complaint TOBACCO DISORDER Reason for Visit History of colonic p olyps Chief Complaint LAB/ XRAY- EORDERS- pain Chief Complaint Admit Date Micro Direct Laryngoscopy with stripping of vocal January 26, 2025 7:44am Chief Complaint Admit Date Micro Direct Laryngoscopy with stripping of vocal January 26, 2025 7:44am THYRIOD February 17, 2025 7:41a m Chief Complaint Admit Date Micro Direct Laryngoscopy with stripping of vocal January 26, 2025 7:44am THYRIOD February 17, 2025 7:41a m 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 9:00am Laryngeal squamous cell carcinoma April 082024 9:32am Laryngeal squamous cell carcinoma April 152024 9:34am Advance Directives Advance Directive Response Recorded Date/ Time Name of Medical Power of Cable Driller POA JEMMA VALENTINE April 13, 2023 10:51am Living Will Yes April 13, 2023 1 0:51am Power of Cable Driller Yes April 13, 2023 10:51am Advance Directive Response Recorded Date/ Time Living Will Yes April 13, 2023 1 0:51am Power of Cable Driller Yes April 13, 2023 10:51am Advance Directive Response Recorded Date/ Time Living Will Yes January 21, 2025 9:05am Do you have a Healthcare Power of Cable Driller? Yes January 21, 2025 9:05am Name of Medical Power of Cable Driller RUBY VALENTINE January 21, 2025 9:05am Reason for Referral Specialty Diagnoses / Procedures Referred By Contac t Referred To Contact Diagnoses Cognitive impairment, mild, so stated Procedures NEUROPSYCHOLOGICAL TESTING CONSULT NEUROBEHAVIORAL STATUS XM PHYS/QHP 1ST HOUR NEUROPSYCHOLOGICAL TST EVAL PHYS/QHP 1ST HOUR NEUROPSYCHOLOGICAL TST EVAL PHYS/QHP EA ADDL HR PSYCL/NRPSYCL TST TECH 2+ TST 1ST 30 MIN PSYCL/NRPSYCL TST TECH 2+ TST EA ADDL 30 MIN Sudheer Paez DO [address] [place] [address] Referral ID Status Reason Start Date Expiration Date Visits Requested Visits Authorized [id number] Ref Not Required PCP Requested Referral 04/04/2024 07/03/2024 1 3 Specialty Diagnoses / Procedures Referred By Contac t Referred To Contact MR IMAGING Diagnoses Cognitive impairment, mild, so stated Procedures MRI 3D POST PROCESSING 3D RENDERING W/INTERP&POSTPROC DIFF WORK STATION Sudheer Paez DO [address] [id number] [facility] [place] [address] Referral ID Status Reason Start Date Expiration Date Visits Requested Visits Authorized [id number] Pending Review Auto-Generat ed Referral 04/04/2024 05/04/2025 1 1 Specialty Diagnoses / Procedures Referred By Contac t Referred To Contact MR IMAGING Diagnoses Cognitive impairment, mild, so stated Procedures MRI BRAIN W QUANT WO IVCON MRI BRAIN BRAIN STEM W/O CONTRAST MATERIAL Sudheer Paez DO [address] [place] [address] Mr Imaging [place] [address] Referral ID Status Reason Start Date Expiration Date Visits Requested Visits Authorized [id number] Pending Review Auto-Generat ed Referral 04/04/2024 05/04/2025 1 1 Summary Purpose Additional Source Comments Goals (unrecognized section and content) Goals may be documented in a n alternate sectionGoals may be documented in an alternate sectionGoals may be documented in an alternate sectionGoals may be documented in an alternate section Care Teams (unrecognized sec tion and content) Team Status: Active Member Role Status Dates Dr. Satya Dove MD Family Provider Active Dr. Satya Dove MD Primary Care Provider Active Team Status: Active Member Role Status Dates Dr. Satya Dove MD Primary Care Provider Active Joya Wilson Attending Provider Active Team Status: Inactive Member Role Status Dates Dr. Satya Dove MD Primary Care Pr scott, Attending Provider, Referring Provider Active Team Status: Active Member Role Status Dates Dr. Satya Dove MD Primary Care Provider, Referr ing Provider Active Dr. Carlitos Dos Santos MD Attending Provider, Other Prov ider Active Team Status: Inactive Member Role Status Dates Dr. Satya Dove MD Primary Care Provider, Referr ing Provider Active Dr. Carlitos Dos Santos MD Attending Provider Active Team Status: Inactive Member Role Status Dates Dr. Satya Dove MD Primary Care Provider, Attend [facility] Provider Active Deputy Bailiff Relationship Specialty Start Date End Date Satya Rogel MD [address] [place] [address] PCP - General 01/16/01 Deputy Bailiff Relationship Specialty Start Date End Date Satya Rogel MD [address] [place], [place] [id number] PCP - General 01/16/01 Deputy Bailiff Relationship Specialty Start Date End Date Satya Rogel MD [address] [place], [place] [address] PCP - General 01/16/01 Team Status: Active Member Role Status Dates Dr. Satya Dove MD Primary Care Provider Active Team Status: Inactive Member Role Status Dates Dr. Satya Dove MD Primary Care Provider Active Start: January 26, 2025 End: January 26, 2025 Dr. Hari Keith MD Attending Provider Active Start: January 26, 2025 End: January 26, 2025 Dr. Hari Keith MD Referring Provider Active Start: January 26, 2025 End: January 26, 2025 Team Status: Inactive Member Role Status Dates Dr. Satya Dove MD Primary Care Provider Active Start: February 17, 2025 End: February 17, 2025 Dr. Hari Keith MD Attending Provider Active Start: February 17, 2025 End: February 17, 2025 Dr. Hari Keith MD Referring Provider Active Start: February 17, 2025 End: February 17, 2025 Deputy Bailiff Relationship Specialty Start Date End Date Satya Dove MD [address] [facility] [address] [place] [phone] PCP - Internal Medicine Family Medicine 03/04/25 Satya Dove MD [address] [facility] [address] [place] [phone] PCP - General Family Medicine 03/05/25 Elizabeth Sullivan DO [address] [facility] [address] [place] [address] Referring Provider Radiation Oncology 03/04/25 Minna Perla, RN Registered Nurse 03/04/25 Team Status: Inactive Member Role Status Dates Dr. Satya Dove MD Primary Care Provider Active Start: February 27, 2025 End: February 27, 2025 Dr. Elizabeth Sullivan DO Attending Provider Active Start: February 27, 2025 End: February 27, 2025 Dr. Bg Keith MD Referring Provider Active Start: February 27, 2025 End: February 27, 2025 Team Status: Inactive Member Role Status Dates Dr. Satya Dove MD Primary Care Provider Active Start: March 11, 2025 End: March 11, 2025 Dr. Hari Keith MD Attending Provider Active Start: March 11, 2025 End: March 11, 2025 Dr. Hari Keith MD Referring Provider Active Start: March 11, 2025 End: March 11, 2025 Deputy Bailiff Relationship Specialty Start Date End Date Satya Dove MD [address] [facility] [address] [place] [phone] PCP - Internal Medicine Family Medicine 03/04/25 Satya Dove MD [address] [facility] [address] [place] [phone] PCP - General Family Medicine 03/05/25 Elizabeth Sullivan DO [address] [facility] [address] [place] [address] Referring Provider Radiation Oncology 03/04/25 Minna Prela, RN Registered Nurse 03/04/25 Team Status: Active Member Role/Relationship Status Dates Dr. Satya Dove MD Primary Care Provider Active Team Status: Inactive Member Role/Relationship Status Dates Dr. Satya Dove MD Primary Care Provider Active Start: January 26, 2025 End: January 26, 2025 Dr. Hari Keith MD Attending Provider Active Start: January 26, 2025 End: January 26, 2025 Dr. Hari Keith MD Referring Provider Active Start: January 26, 2025 End: January 26, 2025 Team Status: Inactive Member Role/Relationship Status Dates Dr. Satya Dove MD Primary Care Provider Active Start: February 17, 2025 End: February 17, 2025 Dr. Hari Keith MD Attending Provider Active Start: February 17, 2025 End: February 17, 2025 Dr. Hari Keith MD Referring Provider Active Start: February 17, 2025 End: February 17, 2025 Team Status: Inactive Member Role/Relationship Status Dates Dr. Satya Dove MD Primary Care Provider Active Start: February 27, 2025 End: February 27, 2025 Dr. Elizabeth Sullivan DO Attending Provider Active Start: February 27, 2025 End: February 27, 2025 Dr. Hari Keith MD Referring Provider Active Start: February 27, 2025 End: February 27, 2025 Team Status: Inactive Member Role/Relationship Status Dates Dr. Satya Dove MD Primary Care Provider Active Start: March 11, 2025 End: March 11, 2025 Dr. Hari Keith MD Attending Provider Active Start: March 11, 2025 End: March 11, 2025 Dr. Hari Keith MD Referring Provider Active Start: March 11, 2025 End: March 11, 2025 Team Status: Active Member Role/Relationship Status Dates Dr. Satya Dove MD Primary Care Provider Active Start: March 27, 2025 Dr. Elizabeth Sullivan DO Attending Provider Active Start: March 27, 2025 Team Status: Active Member Role/Relationship Status Dates Dr. Satya Dove MD Primary Care Provider Active Start: March 31, 2025 Dr. Elizabeth Sullivan DO Attending Provider Active Start: March 31, 2025 Team Status: Active Member Role/Relationship Status Dates Dr. Satya Dove MD Primary Care Provider Active Start: April 01, 2025 Dr. Elizabeth Sullivan DO Attending Provider Active Start: April 01, 2025 Team Status: Active Member Role/Relationship Status Dates Dr. Satya Dove MD Primary Care Provider Active Start: April 06, 2025 Dr. Elizabeth Sullivan DO Attending Provider Active Start: April 06, 2025 Team Status: Inactive Member Role/Relationship Status Dates Dr. Satya Dove MD Primary Care Provider Active Start: April 08, 2025 End: April 08, 2025 Dr. Satya Dove MD Referring Provider Active Start: April 08, 2025 End: April 08, 2025 Dr. Elizabeth Sullivan DO Attending Provider Active Start: April 08, 2025 End: April 08, 2025 Team Status: Active Member Role/Relationship Status Dates Dr. Satya Dove MD Primary Care Provider Active Start: April 08, 2025 Dr. Elizabeth Sullivan DO Attending Provider Active Start: April 08, 2025 Dr. Elizabeth Sullivan DO Referring Provider Active Start: April 08, 2025 Team Status: Inactive Member Role/Relationship Status Dates Dr. Satya Dove MD Primary Care Provider Active Start: April 15, 2025 End: April 15, 2025 Dr. Satya Dove MD Referring Provider Active Start: April 15, 2025 End: April 15, 2025 Dr. Elizabeth Sullivan DO Attending Provider Active Start: April 15, 2025 End: April 15, 2025 Team Status: Active Member Role/Relationship Status Dates Dr. Satya Dove MD Primary Care Provider Active Start: April 15, 2025 Dr. Elizabeth Sullivan DO Attending Provider Active Start: April 15, 2025 Dr. Elizabeth Sullivan DO Referring Provider Active Start: April 15, 2025 Team Status: Active Member Role/Relationship Status Dates Dr. Satya Dove MD Primary Care Provider Active Start: April 17, 2025 Dr. Elizabeth Sullivan DO Attending Provider Active Start: April 17, 2025 Dr. Elizabeth Sullivan DO Referring Provider Active Start: April 17, 2025 Team Status: Inactive Member Role/Relationship Status Dates Dr. Satya Dove MD Primary Care Provider Active Start: April 22, 2025 End: April 22, 2025 Dr. Elizabeth Sullivan DO Attending Provider Active Start: April 22, 2025 End: April 22, 2025 Team Status: Active Member Role/Relationship Status Dates Dr. Satya Dove MD Primary Care Provider Active Start: April 22, 2025 Dr. Elizabeth Sullivan DO Attending Provider Active Start: April 22, 2025 Dr. Elizabeth Sullivan DO Referring Provider Active Start: April 22, 2025 Source Comments (unrecognize d section and content) In the event this informatio n is protected by the Federal Confidentiality of Alcohol and Drug Abuse Patient Records regulations: The Federal rules restrict any use of the information to criminally investigate or prosecute any alcohol or drug abuse patient.[facility] the event this information is protected by the Federal Confidentiality of Alcohol and Drug Abuse Patient Records regulations: The Federal rules restrict any use of the information to criminally investigate or prosecute any alcohol or drug abuse patient.[facility] the event this information is protected by the Federal Confidentiality of Alcohol and Drug Abuse Patient Records regulations: The Federal rules restrict any use of the information to criminally investigate or prosecute any alcohol or drug abuse patient.[facility] (unrecognized sect ion and content) No Status Records FoundNo Status Records FoundNo Status Records Found INFORMATION SOURCE (unrecogn ized section and content) DATE CREATED AUTHOR 04/05/2024 [facility] DATE CREATED AUTHOR AUTHOR'S ORGANIZ ATION 04/11/2025 [facility] DATE CREATED AUTHOR AUTHOR'S ORGANIZ ATION 04/21/2025 [facility] Reason for Visit (unrecogniz ed section and content) Reason Comments New Patient Specialty Diagnoses / Procedures Referred By Contac t Referred To Contact Otolaryngology Diagnoses Malignant neoplasm of larynx, unspecified Elizabeth Sullivan DO [address] [facility] [address] [place] [address] Phone: tel: fax: [facility] [address] [place] [address] Referral ID Status Reason Start Date Expiration Date Visits Requested Visits Authorized [id number] Closed Surgical Evaluation 03/04/2025 03/29/2026 1 1 Reason Comments Hoarse Specialty Diagnoses / Procedures Referred By Contac t Referred To Contact Otolaryngology Diagnoses Malignant neoplasm of larynx, unspecified Gualberto Cooney, PAAvi [address] [place] [address] Phone: tel: fax: Referral ID Status Reason Start Date Expiration Date V isits Requested Visits Authorized [id number] New Request 03/05/2025 03/30/2026 1 1 FOR RECORDS PERTAINING TO PATIENTS WHO ARE OR HAVE BEEN ENROLLED IN A CHEMICAL DEPENDENCY/SUBSTANCEABUSE PROGRAM, SOME INFORMATION MAY BE OMITTED. This clinical summary was aggregated from multiple sources. Caution should be exercised in using it in the provision of clinical care. This summary normalizes information from multiple sources, and as a consequence, information in this document may materially change the coding, format and clinical context of patient data. In addition, data may be omitted in some cases. CLINICAL DECISIONS SHOULD BE BASED ON THE PRIMARY CLINICAL RECORDS. [facility]. provides no warranty or guarantee of the accuracy or completeness of information in this document.
== END | disposition home or self-care (01) ==
LOC: RAD 09:54
PROVIDERS: PCP Family Medicine; Referring Provider Student in an Organized Health Care Education/Training Program; Visit Provider Student in an Organized Health Care Education/Training Program
DX: C32.9 Malignant neoplasm of larynx, unspecified (principal)
CPT/HCPCS: 74230; 92611

== ENCOUNTER 2025-05-25 09:56 | Outpatient (RCR) | payer BC, SELFPAY | END 2025-06-07 23:59 | LOC: NS 09:56 | PROVIDERS: PCP Family Medicine; Visit Provider Student in an Organized Health Care Education/Training Program | DX: Z71.3 Dietary counseling and surveillance (principal); C32.9 Malignant neoplasm of larynx, unspecified | CPT/HCPCS: 97803 ==

== ENCOUNTER 2025-06-18 09:30 | Outpatient (RCR) | payer BC, SELFPAY ==
--- NOTE | 2025-04-17 12:52 | HP.SP.EVAL ---
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 No PEG tube in place. 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 Current Diet Solids Current Diet: Regular Current Diet Liquids Current Liquids: Thin Objective Dysphagia Administered by Administered by: Self Thin Liquids Pharyngeal phase: laryngeal elevation mildly restricted slow initiation Comments: Trialed water via bottle and straw w/ timely swallow, good oral containment and oral clearance, no overt s/s of aspiration. Regular Comments: Trialed Ritz crackers and cheese w/ timely mastication, good oral clearance, no overt s/s of aspiration, no sensation of pharyngeal retention. Impact Impact on Safety & Functioning: Risk for Aspiration and Risk for Inadequate Nutrition/Hydration Comments: Pt is undergoing radiation treatment for laryngeal cancer and is at increased risk for worsening swallow function, including decreased laryngeal elevation and increased aspiration risk. Pt is also at risk for dehydration and malnutrition from acute toxicities of radiation treatment. 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 Tumor on the left vocal cord with extension onto the false cord and anterior commissure. XII Hypoglossal Nerve XII Hypoglossal Nerve Result: Intact Swallowing Performance Scale Swallowing Performance Scale Swallowing Performance Scale Result: 1 Normal Reference: Neuro-QoL instrument Radiation Oncology Patient FOIS Functional Oral Intake Scale Total oral diet with no restrictions: Level 7 Other Other EAT-10: -: Eating Assessment Tool (EAT-10) – Score = 0. Score of 3 or more indicates there may be a swallowing problem or dysphagia. For patients with head and neck cancer, researchers found a cut-off value of 19 to be helpful in detecting presence of post-swallow pharyngeal residue. Plan Plan Plan: While the patient is demonstrating overall normal swallow function at this time, will recommend dysphagia therapy to implement prophylactic oropharyngeal exercise program, ongoing assessment of swallow function and diet tolerance during treatment, and training in management of acute toxicities of radiation treatment that impact swallow function. The patient is at increased risk for dysphagia, aspiration, malnutrition, and dehydration during radiation treatment to treat laryngeal squamous cell carcinoma. Will plan for MBSS to determine the patient's baseline swallow function. He will be planned for repeat MBSS ~3 months s/p completion of radiation treatment, followed by at least yearly MBSS in the first 5 years following radiation, as the patient's swallow is at risk to worsen due to long-term effects of radiation. Pt agreeable to POC. Recommendations Treatment Warranted: Yes Treatment Warranted: Dysphagia Progress Prognosis: Good Frequency Frequency: 1x/Week Duration: 6-12 months Goals that are Established Determination:: Goals will be added/modified as deemed necessary and appropriate. Therapy will be discontinued when results of re-evaluation indicate therapy is no longer needed or lack of progress has been documented. Goal #1-5 Goal #1: The patient will consume least restrictive diet textures without overt s/s of aspiration with minimal verbal cues for use of compensatory strategies to decrease risk for aspiration. Goal #2: The patient will complete an oropharyngeal exercise program during and post radiation treatment independently to improve and maintain strength, ROM, and coordination of swallowing mechanism (jaw stretch, Sujatha, Effortful, Aria, vocal adduction) (X10 repetitions, 3-5X daily). Goal #3: The patient will participate in ongoing education re: short-term and long-term effects of radiation treatment on swallow function and management of symptoms that contribute to dysphagia. Education Patient Instruction Patient Education: Treatment Plan, Goals, Diet Level and Home Exercise Program Other Education: Educated the patient re: short-term and long-term effects of radiation treatment that increase his risk for dysphagia, such as mucositis, odynophagia, xerostomia, hypo/dysgeusia, disuse atrophy, and radiation fibrosis. Discussed consuming as much oral intake as he safely can during treatment and completing oropharyngeal exercises as much as able during treatment to promote [facility] outcome of swallow function. Provided the patient a handout and demonstration of prophylactic oropharyngeal exercise program, as well as a jaw ROM exercise (Sujatha, Effortful, Aria, Jaw Stretch, and vocal cord adduction exercise). The patient provided return demonstration with all exercises with minimal verbal cues, additional education and training recommended, especially to execute Aria. The patient would benefit from continued training to monitor proper execution of exercises and encourage strict adherence to exercise program. Person Taught: Patient Teaching Method: Discussion, Demonstration, Handout and Teach Back Response to teaching: Return Demonstration, Verbalize Understanding and Reinforcement Needed
--- NOTE | 2025-06-30 15:54 | HP.SP.DC ---
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 He participated in radiation treatment from 04/06/2025-05/13/2025. MBSS 04/23/2025 revealed mild oropharyngeal dysphagia. During radiation treatment, he followed w/ ST due to address oropharyngeal dysphagia. Pt is now tolerating Regular textures / Thin liquids and completes home oropharyngeal exercise program independently. Will discharge current POC w/ recommendation to continue home exercise program. Pt agreeable. He is planned for follow up MBSS early August 2025 to monitor risk for worsening dysphagia s/p radiation treatment for HNC.
== END 2025-06-18 19:00 | disposition home or self-care (01) ==
LOC: SP 09:30
PROVIDERS: PCP Family Medicine; Referring Provider Student in an Organized Health Care Education/Training Program; Visit Provider Student in an Organized Health Care Education/Training Program
DX: C32.9 Malignant neoplasm of larynx, unspecified (principal)
CPT/HCPCS: 92526; 92610; 97803

== ENCOUNTER → 2025-08-21 | Outpatient (CLI) | payer BC, SELFPAY ==
[2025-08-21 17:39] LABS: Hematocrit 44.4 % (40-54); Hemoglobin 14.1 g/dL (13.0-16.5); Immature Granulocytes Count 0.100 X10^3/uL (0.0-0.0); Mean Corp Hgb Conc 31.8 g/dL (32-36); Mean Corpuscular Volume 87.6 fL (80-94); Mean Platelet Vol. 9.7 fl (6.2-12.0); NRBC Flagged by Analyzer 0 % (0-5); Platelet Count 266 K/mm3 (150-450); RBC Distribution Width CV 14.0 % (11.6-14.6); RBC Distribution Width SD 44.8 fl (35.1-43.9); Red Blood Count 5.07 M/mm3 (4.6-6.2); White Blood Count 7.6 K/mm3 (4.4-11.0)
[2025-08-21 18:14] LABS: AST(SGOT) 28 U/L (<=37); Alanine Aminotransfer ALT/SGPT 28 U/L (<=46); Albumin, Serum 4.1 g/dL (3.4-4.8); Alkaline Phosphatase 66 U/L (40-129); Anion Gap 9 (5-15); BUN 15 mg/dL (4-19); BUN/Creat Ratio 17.0 RATIO (10-20); Calcium,Total 9.4 mg/dL (7.6-11.0); Carbon Dioxide 27.3 mmol/L (21.0-32.0); Chloride 104 mmol/L (98-108); Cholesterol 139 mg/dL (<=200); Globulin 2.9 g/dL (2.2-4.2); Glucose 92 mg/dL (70-99); Low Density Lipoprotein Calc. 82 mg/dL; Potassium 4.4 mmol/L (3.3-5.1); Triglycerides 95 mg/dL; Very Low Density Lipoprotein 19 mg/dL (5-40); cholesterol:hdl ratio screen 3.58
== END | disposition home or self-care (01) ==
LOC: MTLAB 15:21
PROVIDERS: PCP Family Medicine; Referring Provider Family Medicine; Visit Provider Family Medicine
DX: I10 Essential (primary) hypertension (principal); Z92.3 Personal history of irradiation; R73.02 Impaired glucose tolerance (oral)
CPT/HCPCS: 36415; 80053; 80061; 83036; 84439; 84443; 85025

== ENCOUNTER → 2025-09-24 | Outpatient (CLI) | payer BC, SELFPAY ==
--- NOTE | 2025-09-24 08:34 | ST.MBS ---
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 05/13/2025: received definitive radiation therapy consisting of 6300 cGy delivered in 28 fractions to the larynx. Dysphagia Hx: BSE 04/17/2025 recommended regular textures / thin liquids w/ MBSS to further assess swallow function and aspiration risk. MBSS 04/23/2025 revealed mild oropharyngeal dysphagia and recommended the following: Diet: Regular Textures and Thin Liquids; Compensatory Strategies: Small Bites, Small Sips, Slow Rate, Sitting upright and Remain sitting upright for 30 minutes after PO intake. Pt maintained ability to eat solid foods and drinks by mouth throughout the duration of his treatment. He is now recommended for repeat MBSS to re-assess and monitor swallow function s/p radiation treatment for laryngeal cancer. Pt came from ENT and reported being scoped, ENT said he appears clear of disease. He has mild throat pain, ENT recommended limiting caffeine. Pt has mild xerostomia, mild odynophagia, and mild hypogeusia (>90% of taste has returned since treatment). Current Diet Ordered: Regular textures / Thin liquids Dentition: Natural Teeth and Missing Teeth Mental Status: WNL Respiratory Status: Oxygenating on Room Air Penetration-Aspiration Scale Penetration-Aspiration Scale: OBJECTIVE ASSESSMENT OF SWALLOW FUNCTION (QUANTITATIVE ? PER TRIAL): PENETRATION / ASPIRATION SCALE (LOGAN): 1 = does not enter airway 2 = enters airway/above vocal folds/ejected 3 = enters airway/above vocal folds/not ejected 4 = enters airway/contacts vocal folds/ejected 5 = enters airway/contacts vocal folds/not ejected 6 = enters airway/below vocal folds/ejected 7 = enters airway/below vocal folds/not ejected despite effort 8 = enters airway/below vocal folds/no effort VIDEOFLOROSCOPIC SCALE SCORE (LOGAN): Grade I = aspiration of material that has penetrated into the laryngeal vestibule, intact cough reflex Grade II = aspiration < 10 % of the bolus, intact cough reflex Grade III = aspiration of < 10 % of the bolus, reduced cough reflex or aspiration of > 10 % of the bolus, intact cough reflex Grade IV = aspiration of > 10 % of the bolus, reduced cough reflex Penetration-Aspiration Scale Score Thin Liquid via teaspoon: Result: 1= does not enter airway Thin Liquid via teaspoon Trial 2: Result: 1= does not enter airway Thin Liquid via large single sip: cup: Result: 2= enter airway/above vocal folds/ejected Minerva Thick Liquid via large single sip: cup: Result: 1= does not enter airway Pudding via teaspoon: Result: 1= does not enter airway Comment: Esophageal screen - Retention in the upper esophagus. 1/2 Cookie: Result: 1= does not enter airway Comment: Esophageal screen - Retention in the middle esophagus. Thin Liquid via sequential sips:straw: Result: 2= enter airway/above vocal folds/ejected Comment: Esophageal screen - Liquid wash was mostly effective in clearing esophageal retention, minimal residue in the middle esophagus remained after liquid wash. Oral Phase Labial Seal: No Labial Escape Tongue Control During Bolus Hold: Posterior escape of greater than half of bolus Bolus Preparation/Mastication: Timely and efficient chewing and mashing Bolus Transport/Lingual Motion: Delayed initiation of tongue motion Oral Residue: Residue collection on oral structures Pharyngeal Phase Initiation of Pharyngeal Swallow: Bolus head in pyriforms Soft Palate Elevation: Trace column of contrast/air between soft palate and pharyngeal wall Laryngeal Elevation: Comp. Superior move thyroid cart w/comp. apprx arytenoid cart-epig pet Anterior Hyoid Excursion: Partial anterior movement Epiglottic Movement: Complete inversion Laryngeal Vestibule Closure at Height of Swallow: Incomplete; narrow column of air/contrast in laryngeal vestibule Pharyngeal Stripping Wave: Present - diminished Pharyngoesophageal Segment Opening: Complete distension and complete duration; no obstruction of flow Tongue Base Retraction: Narrow column of contrast between tongue base & post. pharyngeal wall Pharyngeal Residue: Collection of residue within or on pharyngeal structures Esophageal Phase Esophageal Clearance: Esophageal retention Diagnosis/Impression Diagnosis: Mild oropharyngeal dypshagia R13.12 MBS Impressions: The oral phase is marked by... -Posterior loss of thin liquids to the pyriform sinuses prior to swallow onset w/ sequential sips of thin liquids. -Mild oral residue, which fully cleared w/ independent use of as second swallow. Residues likely secondary to mild xerostomia. The pharyngeal phase is marked by... -Mildly decreased TB retraction and pharyngeal stripping wave w/ trace-mild pharyngeal residues, which fully cleared w/ a second swallow as needed. -Trace laryngeal penetration w/ complete ejection 2X w/ thin liquids. No aspiration observed. The esophageal phase is marked by... -Esophageal retention of pudding and cookie in the middle esophagus, which mostly cleared w/ thin liquid wash. Recommendations Diet: Regular Textures and Thin Liquids Compensatory Strategies: Small Bites, Small Sips, Slow Rate, Multiple Swallows (As needed), Alternate bites/solids and sips/liquids, Sitting upright and Remain sitting upright for 30 minutes after PO intake Recommend Repeat Modified Barium Swallow: Yes Comment: Repeat MBS study in 6-12 months to monitor swallow function as the patient is at risk for worsening dysphagia and aspiration risk s/p radiation treatment. Need for Skilled Speech Therapy Services: No Comment: Pt to continue with home oropharyngeal exercise program 3X daily, 5X/week. Recommended Referrals: GI Consult (Consider a GI consult given esophageal retention of foods, especially if increased sensation of retention or symptoms of reflux. Pt to discuss w/ his PCP as he does not feel it is giving him any issues at this time.) Education Completed: 1. Described result of evaluation. and 2. Pt understands evaluation & agrees with goals and treatment plan. Status Active ST Patient: Active Contact Information [facility] Speech Therapy:: Meredith Tellez M.A. CCC-NEON LIGHT INSTALLER? Speech-Language Pathologist?? [facility] [address] [place] [address]? [email or web address]?? [phone]
== END | disposition home or self-care (01) ==
LOC: RAD 09:45
PROVIDERS: PCP Family Medicine; Referring Provider Student in an Organized Health Care Education/Training Program; Visit Provider Student in an Organized Health Care Education/Training Program
DX: C32.9 Malignant neoplasm of larynx, unspecified (principal)
CPT/HCPCS: 74230; 92611